=== PATIENT | female | born 1965 | race African-American/Black ===

== ENCOUNTER 2022-04-16 11:47 | Emergency (ER) | payer MEDICAID, SELFPAY ==
[2022-04-16 11:53] VITALS: BP 106/76; PULSE 71; RESP 16; TEMP 37.1; O2SAT 97; BMI 33.3
== END 2022-04-16 13:05 | disposition left against medical advice (07) ==
LOC: ED 13:08
DX: Z53.21 Procedure and treatment not carried out due to patient leaving prior to being seen by health care provider (principal)

== ENCOUNTER 2023-04-10 12:50 | Emergency (ER) | payer MEDICAID, SELFPAY ==
[2023-04-10 13:02] VITALS: BP 105/70; PULSE 69; RESP 18; TEMP 35.9; O2SAT 98
== END 2023-04-10 14:36 | disposition left against medical advice (07) ==
PROVIDERS: Emergency Provider Emergency Medicine Emergency Medical Services
DX: Z53.21 Procedure and treatment not carried out due to patient leaving prior to being seen by health care provider (principal)

== ENCOUNTER 2023-04-11 08:05 | Emergency (ER) | payer MEDICAID, SELFPAY ==
[2023-04-11] VITALS (34 sets, daily range): BP systolic 119–184; BP diastolic 68–86; PULSE 58–108; RESP 18; TEMP 35.4–36.1; O2SAT 92–100
--- NOTE | 2023-04-11 08:12 | ED.GENADULT ---
HPI - General Adult General Time Seen by Provider: 08:12 Date Seen: 04/11/23 Chief complaint: Chest Pain Stated complaint: thinks she's having a stroke Time Seen by Provider: 04/11/23 08:12 History of Present Illness HPI narrative: This is a 58-year-old female with a past history including previous PE On Xarelto, TMJ dysfunction, thoracic back pain, leg pain, headache, left hip replacement. She presents to the ER today with concern that she may be having a stroke because she is having numbness on her lip. She also has chest pain. She also recently had a rash affecting her face and was put on prednisone. She has a little bit unclear when that was but it sounds like the rash was about 6 or 7 days ago and she was seen in clinic and align and put on prednisone oral pills about 4 5 days ago last . She took 1 of those pills in bed Gadavist have symptoms. She had insomnia, trouble breathing, she felt anxious. She also developed some tightness in her chest. She was worried she might be having a side effect of the prednisone but did take an additional dose the following evening. Since then, labs or Monday she has been having some discomfort in her chest. It sounds like this has been fairly continuous. No clear pattern to it or relationship to exertion or rest. She has also been feeling some tightness and possibly short of breath. She has also noted some peripheral edema and new swelling in both of her ankles that is been present since or Monday and persistent over the weekend. If anything her chest tightness is little bit better today than prior but is still there. Beginning perhaps 2 days ago, possibly on Monday she began to have a funny tingly feeling in her left lateral shoulder/lateral upper arm. No weakness. No leg symptoms. No facial symptoms. since yesterday evening she also has been having tingling affecting both the right and left sides of her upper lip. No numbness of her lower lip or chin. No other numbness of her face. No trouble speaking. No other definite new symptoms. She also has some chronic pain in her hips and thighs which apparently has been there for several months. She did have a left hip joint replacement done several months ago. She has a previous visit to the ER from 2021 with a negative workup. Past medical history is pulled from that note Related Data Home Medications Medication Instructions Recorded Confirmed albuterol sulfate 90 mcg/actuation 1 - 2 puff inhalation Q4H PRN 04/11/23 04/11/23 aerosol inhaler dyspnea cholecalciferol (vitamin D3) 50 50 mcg PO DAILY 04/11/23 04/11/23 mcg (2,000 unit) capsule latanoprost 0.005 % eye drops 1 drp ophthalmic (eye) QPM 04/11/23 04/11/23 rivaroxaban 10 mg tablet (Xarelto) 10 mg PO DAILY 04/11/23 04/11/23 Allergies Allergy/AdvReac Type Severity Reaction Status Date / Time Sulfa (Sulfonamide AdvReac Intermediate Nausea Verified 04/16/22 12:01 Antibiotics) Exam Narrative: Exam Narrative: Constitutional: Appears well-developed and well-nourished. Alert. Conversant. Non toxic. HENT: Head: Atraumatic. Nose: Nose normal. Mouth/Throat: Oral mucosa is clear and moist. no trismus. Pharynx normal. Tonsils symmetric. No tonsillar enlargement, erythema, or exudate. Eyes: Conjunctivae normal. EOM normal. Pupils equal, round, and reactive to light. No scleral icterus. Neck: Normal range of motion. Neck supple. No tracheal deviation present. No JVD. Cardiovascular: Normal rate, regular rhythm. No gallop. No friction rub. No murmur heard. Symmetric radial and PT artery pulses Pulmonary/Chest: Effort normal. No stridor. No respiratory distress. No wheezes. No rales. No rhonchi . No tenderness. Abdominal: Soft. Bowel sounds normal. No distension. No mass. No tenderness. No rebound. No guarding. Musculoskeletal: RUE: Normal range of motion. No tenderness. No deformity LUE: Normal range of motion. No tenderness. No deformity RLE: Normal range of motion. No edema. No tenderness. No deformity LLE: Normal range of motion. No edema. No tenderness. No deformity Lymph: No cervical adenopathy. Mental status normal. Attention normal. Alert and oriented x3. GCS 15. Memory normal. Speech fluent. Cognition normal. Cranial Nerves intact II-XII except for complaint of subjective paresthesias on both sides of her upper lip. I did not formally test gag or visual acuity. EOMI. Palate elevates symmetrically and tongue protrudes in the midline. Strength: 5/5 trapezius on the right and left 5/5 deltoid on the right and left 5/5 biceps on the right and left 5/5 triceps on the right and left 5/5 scale manager on the right and left 5/5 thumb opposition on the right and left 5/5 finger abduction on the right and left 5/5 hip flexors (L3) on the right and left 5/5 quadriceps (L4) on the right and left 5/5 tibialis anterior on the right and left 5/5 EHL (L5) on the right and left 5/5 gastrocnemius (S1) on the right and left 5/5 hamstring on the right and left Sensation intact to light touch in both upper extremities (C4-T1) Sensation intact to light touch in Both lower extremities (L4-S1). Finger to nose and coordination normal. Gait normal. Skin: Skin is warm and dry. No rash noted. No pallor. Normal capillary refill. Psychiatric: Normal mood. Normal affect. Const: Vital Signs, click to edit/add: Vital Signs - 24 hr 04/11/23 08:17 04/11/23 08:37 04/11/23 08:55 Temperature 95.7 F L Pulse Rate 63 67 Pulse Rate [Right Pulse Oximeter] 76 Respiratory Rate 18 Blood Pressure 119/68 Blood Pressure [Ri ght Upper Arm] 126/86 Pulse Oximetry 94 96 [facility] 04/11/23 08:56 04/11/23 09:00 04/11/23 09:02 Temperature Pulse Rate 74 63 66 Pulse Rate [Right Pulse Oximeter] Respiratory Rate Blood Pressure 184/80 H Blood Pressure [Ri ght Upper Arm] Pulse Oximetry 98 98 97 [facility] 04/11/23 09:03 04/11/23 09:15 04/11/23 09:30 Temperature Pulse Rate 61 62 60 Pulse Rate [Right Pulse Oximeter] Respiratory Rate Blood Pressure Blood Pressure [Ri ght Upper Arm] Pulse Oximetry 99 97 96 Oxygen Delivery [facility] 04/11/23 09:33 04/11/23 09:45 04/11/23 10:00 Temperature Pulse Rate 65 58 L 108 H Pulse Rate [Right Pulse Oximeter] Respiratory Rate Blood Pressure 120/74 Blood Pressure [Ri ght Upper Arm] Pulse Oximetry 98 96 95 Oxygen Delivery [facility] 04/11/23 10:02 04/11/23 10:03 04/11/23 10:15 Temperature Pulse Rate 60 61 65 Pulse Rate [Right Pulse Oximeter] Respiratory Rate Blood Pressure 128/74 Blood Pressure [Ri ght Upper Arm] Pulse Oximetry 99 100 98 Oxygen Delivery [facility] 04/11/23 10:30 04/11/23 10:32 04/11/23 10:45 Temperature Pulse Rate 65 66 66 Pulse Rate [Right Pulse Oximeter] Respiratory Rate Blood Pressure 135/73 Blood Pressure [Ri ght Upper Arm] Pulse Oximetry 97 100 99 Oxygen Delivery [facility] 04/11/23 11:01 04/11/23 11:02 04/11/23 11:15 Temperature Pulse Rate 73 71 63 Pulse Rate [Right Pulse Oximeter] Respiratory Rate Blood Pressure 132/85 Blood Pressure [Ri ght Upper Arm] Pulse Oximetry 100 92 98 Oxygen Delivery [facility] 04/11/23 11:30 04/11/23 12:38 04/11/23 12:45 Temperature Pulse Rate 64 65 63 Pulse Rate [Right Pulse Oximeter] Respiratory Rate Blood Pressure Blood Pressure [Ri ght Upper Arm] Pulse Oximetry 94 93 99 Oxygen Delivery [facility] 04/11/23 13:00 04/11/23 13:15 04/11/23 13:30 Temperature Pulse Rate 63 65 67 Pulse Rate [Right Pulse Oximeter] Respiratory Rate Blood Pressure Blood Pressure [Ri ght Upper Arm] Pulse Oximetry 100 98 99 Oxygen Delivery [facility] 04/11/23 13:32 04/11/23 13:51 04/11/23 14:00 Temperature Pulse Rate 66 76 72 Pulse Rate [Right Pulse Oximeter] Respiratory Rate Blood Pressure Blood Pressure [Ri ght Upper Arm] Pulse Oximetry 100 95 100 Oxygen Delivery [facility] 04/11/23 14:15 04/11/23 14:30 04/11/23 14:45 Temperature Pulse Rate 71 69 65 Pulse Rate [Right Pulse Oximeter] Respiratory Rate Blood Pressure Blood Pressure [Ri ght Upper Arm] Pulse Oximetry 100 99 93 Oxygen Delivery Me [facility] 04/11/23 15:36 Temperature 96.9 F L Pulse Rate Pulse Rate [Right Pulse Oximeter] 70 Respiratory Rate Blood Pressure Blood Pressure [Ri ght Upper Arm] 120/81 Pulse Oximetry Oxygen Delivery Me thod Course Course Hospital Course: Patient was evaluated here in the ER. I ordered labs, EKG, workup for chest pain as well as CT scan of her head to workup for her neurologic symptoms. She was sent for noncontrast head CT. She declined Ativan. She declined IV start. IC received a phone call from the radiologist. They indicate that there was an abnormality within the right basal ganglia. They feel that it is most likely indicative of a calcification (but was not seen on her CT scan in 2016) and could be a small area of intracranial hemorrhage. Discuss with the stroke neurologist from [facility], Dr. Garza. She would recommend that we get MRI of the patient's brain with and walk without contrast to further characterize this lesion to see if it is a bleed or not and find out if is any underlying abnormalities such as a tumor. Discussed the recommendations with the patient. She was frustrated about the ambiguity, and just wanted to go home. We discussed potentially serious nature if this is truly an intracranial hemorrhage. Ultimately she decided to stay here in the ER for further workup. I ordered the MRI with and without contrast. She allowed us to try to start an IV. She is not known to be a very difficult IV stick. Nurses were unable to identify any site for IV start at the bedside. I looked with the bedside ultrasound. I was only able to identify 2 small fairly deep vessels adjacent to the arteries in her bilateral antecubital fossae. We called Anesthesia. They were ultimately able to get an IV. Patient was sent for MRI. She had anxiety and panic and was not able tolerate imaging while there. She was sent back to the ER. There was then some difficulty getting her back for MRI because of trouble with the schedule. They did not want to bump any outpatients for her MRI (even though this is a potential emergency). Ultimately we were able to get MRI to readjust her schedule to accommodate this patient. There was substantial delay in the time from her initial CT scan until we can get follow-up and imaging due to these multiple factors including patient reluctance, difficult IV access, anxiety with MRI needing medications, difficulty with MRI scheduling). Even after we ordered Ativan and got the MRI rescheduled for the patient she was still refusing. Patient understands our concern for intracranial hemorrhage in the potentially serious nature of this condition. Could lead to explaining bleeding which could lead to worsening neurologic deficits or even . She is still refusing MRI. She is just too claustrophobic and anxious. She is refusing offer of Ativan to facilitate imaging. I think she has medical decision-making capacity. Therefore will have to go ahead with repeat CT imaging to further evaluate. I ordered a repeat noncontrast head CT. Vital Signs Vital signs: Initial Vital Signs Temperature 95.7 F L 04/11/23 08:17 Temperature Source Temporal Artery Scan 04/11/23 08:17 Pulse Rate 76 04/11/23 08:17 Respiratory Rate 18 04/11/23 08:17 Blood Pressure 126/86 04/11/23 08:17 Blood Pressure Mean 99 04/11/23 08:17 Blood Pressure Position Sitting 04/11/23 08:17 Pulse Oximetry 94 04/11/23 08:17 Oxygen Delivery Method Room Air 04/11/23 08:17 Vital Signs Temperature 95.7 F L 04/11/23 08:17 Pulse Rate 76 04/11/23 08:17 Respiratory Rate 18 04/11/23 08:17 Blood Pressure 126/86 04/11/23 08:17 Pulse Oximetry 94 04/11/23 08:17 Oxygen Delivery Method Room Air 04/11/23 08:17 Temperature 96.9 F L 04/11/23 15:36 Pulse Rate 70 04/11/23 15:36 Respiratory Rate 18 04/11/23 08:17 Blood Pressure 120/81 04/11/23 15:36 Pulse Oximetry 93 04/11/23 14:45 Oxygen Delivery Method Room Air 04/11/23 08:17 Medical Decision Making MDM Narrative Medical decision making narrative: This is a 50-year-old female with a complex presentation to the ER. She complains of chest tightness ongoing since last week, continuous for several days, also neurologic symptoms including numbness of her left shoulder/upper arm and her bilateral upper lip. In terms of her chest pain. Differential was broad. No evidence of palpitations, syncope or other cardiac dysrhythmia. We considered possible ACS, however workup with EKG and troponin is negative. Given time since onset of symptoms, I do not think the patient needs to be admitted for further sets of enzymes. EKG shows no evidence for pericarditis. Clinical presentation not suggestive of myocarditis. Chest x-ray shows no evidence for pneumonia, pneumothorax, pulmonary edema, pleural effusion, rib fracture, cardiomegaly. Mediastinum is normal on the x-ray. The patient has no ripping or tearing pain through to the back and has symmetric pulses on exam, no other acute neuro findings so I doubt aortic dissection. Risk of radiation and contrast exposure would outweigh the benefit of CT angiogram. We considered PE for this patient. D-dimer is reassuring. She is already on anticoagulation with Xarelto and has been consistent with taking that. No wheezing or bronchospasm to suggest COPD/asthma. No signs of chest wall cellulitis, shingles, injury. Suspect that there may be some component of anxiety and probably stimulation from her prednisone that could be contributing. In terms of her neurologic symptoms, Concerns for possible stroke. With left arm symptoms ongoing for couple of days should be outside the window for stroke team activation or IV thrombolytics. We did send the patient for a noncontrast head CT. It had a surprising abnormality of a hyperdensity in the right basal ganglia (chronic calcification versus possible small acute intracranial/intraparenchymal hemorrhage). In discussion with the reading radiologist, he would says he would strongly favor calcification but cannot rule out bleed and recommends follow-up CT scan to assure stability. Discussed also with the Stroke Neurology team from [facility] and they recommended MRI with and without contrast. MRI with and without contrast was delayed substantially due to difficulty getting IV start. Ultimately MRI is not possible because of anxiety/claustrophobia. Patient is refusing offered benzodiazepines to help manage those symptoms. Therefore we went ahead with repeat noncontrast head CT. Repeat head CT is actually normal appearing this shows no evidence for any hyperdensity in the right basal ganglia to suggest intracranial hemorrhage. Unclear what was found on the 1st CT scan. Ultimately no signs of any residual or expanding intracranial hemorrhage, or any edema in the brain related to the hemorrhage. I still think MRI would be the ideal test for further evaluation, but as above, not obtainable here in the ER. patient is otherwise stable. She is eager for discharge to home. Recommend close outpatient follow-up with her primary care. Lab Data Labs: Lab Results 04/11/23 Range/Units 09:20 WBC 4.44 L (4.50-11.00) K/uL RBC 4.10 (4.00-5.20) m/uL Hgb 12.7 (12.0-16.0) gm/dL Hct 39.6 (33.0-51.0) % MCV 97 (80-100) fL MCH 31 (26-34) pg MCHC 32 (32-36) gm/dL RDW Coeff of Jose 12.2 (11.5-15.5) % Plt Count 232 (140-440) K/uL Neut % (Auto) 49.2 (42.0-72.0) % Lymph % (Auto) 44.1 H (20-44) % [place] % (Auto) 4.5 (0.0-11.0) % Eos % (Auto) 1.8 (0.0-7.0) % Baso % (Auto) 0.2 (0.0-3.0) % Neut # (Auto) 2.20 (1.7-7.0) K/uL Lymph # (Auto) 2.00 (0.90-2.90) K/uL [place] # (Auto) 0.20 (0.00-0.90) K/UL Eos # (Auto) 0.10 (0.00-0.50) K/uL Baso # (Auto) 0.00 (0.00-0.30) K/uL Abs Immat Gran (auto) 0.00 (0.00-0.30) K/uL Imm/Tot Granulo (auto) 0.2 % D-Dimer Quant (PE/DVT) 0.41 (0.00-0.50) ug/ml Sodium 139 (135-149) mmol/L Potassium 3.7 (3.6-5.1) mmol/L Chloride 106 (96-114) mmol/L Carbon Dioxide 23 (20-32) mmol/L BUN 11 (7-30) mg/dL Creatinine 0.7 (0.5-1.5) mg/dL Estimated GFR 100 ml/min Glucose 81 (60-115) mg/dL Calcium 9.0 (8.4-10.6) mg/dL Troponin I 0.01 (0.01-0.04) ng/mL Imaging Data CT scan - head: My impression: Discussed CT with the radiologist from [facility]. He indicates that there is a hyperdensity in the right basal ganglia. It was not present on previous imaging. He would strongly favor that this is probably a calcification but cannot completely exclude a possible tiny acute intraparenchymal hemorrhage. He recommends repeat CT scan in 6 hours to evaluate for stability. Radiologist's impression: IMPRESSION: Punctate hyperdensity within the posterior limb of the right internal capsule/thalamus. Finding most likely represent basal ganglial calcification. Tiny intraparenchymal hemorrhage felt unlikely this was not discretely visualized on exam from August 12, 2021. If there is further clinical concern short-term interval follow-up CT could be considered. ECG Data Attestation: I personally reviewed and interpreted this ECG as follows: Interpretation: Normal sinus rhythm rate 69 [place] 162 QRS axis normal. No pathologic Q-waves. ST segment/T wave: No ST segment elevation or depression. Nonspecific T-wave flattening in V2-V6, lead 3, lead AVF. QTc: 441 Discharge Plan Discharge Clinical Impression: Chest pain, Paresthesia of arm, Facial paresthesia Patient Disposition: Home, Self-Care Condition: Stable Instructions: Chest Pain (ED), Paresthesia (ED) Additional Instructions: As we discussed, please come back to the ER right away if you have worsening symptoms especially spreading numbness, weakness in your arm, headache, worsening chest pain, more trouble breathing, or if you have any concerns. Please follow-up with your regular doctor for recheck within the next 1-3 days. Activity Level: No Restrictions Prescriptions: No Action latanoprost 0.005 % drops 1 drp ophthalmic (eye) QPM albuterol sulfate 90 mcg/actuation HFA aerosol inhaler 1 - 2 puff INHALATION Q4H PRN (Reason: dyspnea) cholecalciferol (vitamin D3) 50 mcg (2,000 unit) capsule 50 mcg PO DAILY Xarelto 10 mg tablet 10 mg PO DAILY Follow Up/Referrals: Provider,Not a Local [Referring] - Stand Alone Forms: [employer] Info Instructions
--- NOTE | 2023-04-11 08:33 | CRLHL7_ITS ---
For Patients: As a result of the Century Cures Act, medical imaging exams and procedure reports are released immediately into your electronic medical record. You may view this report before your referring provider. If you have questions, please contact your health care provider. INDICATION: parathesia TECHNIQUE: Head CT without contrast. COMPARISON: CT head August 12, 2021. FINDINGS: CSF spaces: Within normal limits for age. Brain parenchyma and extra-axial spaces: Punctate hyperdensity within the posterior limb of the right internal capsule/thalamus there is a punctate hyperdensity that would represent a basal ganglia calcification. Tiny intraparenchymal hemorrhage felt less likely. There are mild nonspecific low attenuation white matter changes consistent with chronic microvascular disease. No mass effect or midline shift. Skull base and calvarium: The visualized paranasal sinuses and mastoid air cells demonstrate no acute or significant findings. The visualized orbits are grossly unremarkable. No skull fractures. IMPRESSION: Punctate hyperdensity within the posterior limb of the right internal capsule/thalamus. Finding most likely represent basal ganglial calcification. Tiny intraparenchymal hemorrhage felt unlikely this was not discretely visualized on exam from August 12, 2021. If there is further clinical concern short-term interval follow-up CT could be considered. Otherwise, no acute intracranial abnormality on this unenhanced CT head. Findings discussed with Dr. Erwin Ferreira at 9:20 a.m. Please note that all CT scans at this facility use dose modulation, iterative reconstruction, and/or weight-based dosing when appropriate to reduce radiation dose to as low as reasonably achievable. Dictated by Arsenio Snyder MD @ 04/11/2023 9:21:46 AM (Electronically Signed)
--- NOTE | 2023-04-11 08:58 | ED.NURSE ---
Patient does not want IV. Explained purpose and potential need for IV medications and she states she will do blood draw now and IV later if needed. Also refuses medication at this time as she feels medication is to blame for her current symptoms.
[2023-04-11 09:50] LABS: Basophils Percent Auto 0.2 % (0.0-3.0); Eosinophils Percent Auto 1.8 % (0.0-7.0); Hematocrit 39.6 % (33.0-51.0); Hemoglobin* 12.7 gm/dL (12.0-16.0); Immature Granulocytes Pct Auto 0.2 %; Lymphocytes Percent Auto 44.1 % (20-44); Mean Corpuscular HGB Conc 32 gm/dL (32-36); Mean Corpuscular Hemoglobin 31 pg (26-34); Mean Corpuscular Volume 97 fL (80-100); Monocytes Percent Auto 4.5 % (0.0-11.0); Neutrophils Percent Auto 49.2 % (42.0-72.0); Platelet Count* 232 K/uL (140-440); RDW Coefficient of Variation % 12.2 % (11.5-15.5); White Blood Count* 4.44 K/uL (4.50-11.00)
[2023-04-11 10:02] LABS: Chloride* 106 mmol/L (96-114); Potassium* 3.7 mmol/L (3.6-5.1); Sodium* 139 mmol/L (135-149)
[2023-04-11 10:03] LABS: D Dimer Quantitative* 0.41 ug/ml (0.00-0.50)
[2023-04-11 10:05] LABS: Blood Urea Nitrogen* 11 mg/dL (7-30); Carbon Dioxide* 23 mmol/L (20-32); Creatinine* 0.7 mg/dL (0.5-1.5); Estimated Glomerular Filt Rate 100 ml/min; Glucose* 81 mg/dL (60-115)
[2023-04-11 10:09] LABS: Slide Review Reflex No
[2023-04-11 10:17] LABS: Troponin I* 0.01 ng/mL (0.01-0.04)
--- NOTE | 2023-04-11 11:58 | ED.NURSE ---
Patient accepts recommended plan of care including IV for contrast MRI. No veins are palpable for possible site. MD attempted to find vein on ultrasound without viable site. Anesthesia paged to help with access.
--- NOTE | 2023-04-11 12:45 | ED.NURSE ---
pt was brought to MRI, when electronic lab technician went to put pt into machine pt refused to complete scan, electronic lab technician brought pt back to the ED MRI not completed
--- NOTE | 2023-04-11 13:33 | CRLHL7_ITS ---
For Patients: As a result of the Century Cures Act, medical imaging exams and procedure reports are released immediately into your electronic medical record. You may view this report before your referring provider. If you have questions, please contact your health care provider. INDICATION: Right sided subcortical hemorrhage question on a study from earlier April 11, 2023 COMPARISON: April 11, 2023 at 8:55 a.m. the current study is from April 11, 2023 01:55 p.m. TECHNIQUE: CT examination of the head was performed as axial sections without intravenous contrast. Images were obtained from the vertex of the skull through the skull base. Please note that all CT scans at this facility use dose modulation, iterative reconstruction, and/or weight-based dosing when appropriate to reduce radiation dose to as low as reasonably achievable. FINDINGS: The brain shows no sign of mass lesion, mass effect, hemorrhage, or edema. The ventricles and sulci are normal in appearance for the patient`s age. The focal hyperdensity noted in the posterior limb of the right internal capsule near the superior and lateral aspect of the right thalamus is not visible on the current study. The visualized portions of the orbits are normal in appearance. The osseous structures are normal in their appearance with no sign of abnormality in the skull base or calvarium. IMPRESSION: Normal unenhanced head CT. The focal hyperdensity noted in the posterior limb of the right internal capsule near the superior and lateral aspect of the right thalamus is not visible on the current study. There is no evidence of hemorrhage on the current exam. Please note that all CT scans at this facility use dose modulation, iterative reconstruction, and/or weight-based dosing when appropriate to reduce radiation dose to as low as reasonably achievable. Dictated by Artemio Martinez MD @ 04/11/2023 2:29:28 PM (Electronically Signed)
--- NOTE | 2023-04-11 13:48 | ED.NURSE ---
Patient counseled on importance of completed MRI with contrast for best imaging. Her fears were heard and acknowledged, Ativan offered as medication. Patient still unwilling to take anti-anxiolytic and unable to tolerate MRI. MD updated and order changed to CT.
== END 2023-04-11 15:37 | disposition home or self-care (01) ==
PROVIDERS: Emergency Provider Emergency Medicine; PCP Student in an Organized Health Care Education/Training Program
DX: R07.9 Chest pain, unspecified (principal); R20.2 Paresthesia of skin
CPT/HCPCS: 36415; 70450; 80048; 84484; 85025; 85379; 93005; 99284

== ENCOUNTER 2023-07-14 19:31 | Emergency (ER) | payer MEDICAID, SELFPAY ==
[2023-07-14 19:36] VITALS: BP 119/79; PULSE 84; RESP 20; TEMP 36.4; O2SAT 96; BMI 35.4
--- NOTE | 2023-07-14 19:42 | ED_ITS ---
HPI - Wound/Laceration General Time Seen by Provider: 19:42 Date Seen: 07/14/23 Chief Complaint: Laceration/Wound Stated Complaint: hand puncture Time Seen by Provider: 07/14/23 19:41 Source: patient and RN notes reviewed Mode of arrival: ambulatory Limitations: no limitations History of Present Illness HPI narrative: Patient is a 58-year-old female coming in with a laceration just along the base of her left thumb. She sustained this as she was attempting to open her juice bottle, could not get the cap off and took a knife to it, accidentally stabbed herself along her hand. She was holding pressure as she is on Xarelto for history of pulmonary embolus. It did bleed a lot. She states the nail portion along the end of her finger was feeling numb. The knife went into the interdigital web space alongside the base of the thumb metacarpophalangeal joint. There is no active bleeding at this time, she states she held heavy pressure on it. There is nothing on the lateral aspect or the thenar eminence. Reviewed with her that there are nerve roots on both sides of the thumb, does not seem feasible that she would have full terminal numbness of the thumb. Will explore the wound and make sure it is not deep but at this time it is not bleeding, does not seem to be in an area that would be juxtaposed to where the nerve root lies, wound is more along the soft tissue in interdigital web space. Patient believes her tetanus is up-to-date. This injury happened just prior to arrival. Place: home Patient tetanus UTD: Yes Context: accidental Related Data Home Medications Medication Instructions Recorded Confirmed albuterol sulfate 90 mcg/actuation 1 - 2 puff inhalation Q4H PRN 04/11/23 07/14/23 aerosol inhaler dyspnea cholecalciferol (vitamin D3) 50 50 mcg PO DAILY 04/11/23 07/14/23 mcg (2,000 unit) capsule latanoprost 0.005 % eye drops 1 drp ophthalmic (eye) QPM 04/11/23 07/14/23 rivaroxaban 10 mg tablet (Xarelto) 10 mg PO DAILY 04/11/23 07/14/23 Allergies Allergy/AdvReac Type Severity Reaction Status Date / Time Sulfa (Sulfonamide AdvReac Intermediate Nausea Verified 07/14/23 19:36 Antibiotics) Review of Systems Narrative: As per HPI. Exam Const: Vital Signs, click to edit/add: Vital Signs - 24 hr 07/14/23 19:36 Temperature 97.6 F Pulse Rate [Pulse Oximeter] 84 Respiratory Rate 20 Blood Pressure [Ri ght Forearm] 119/79 Pulse Oximetry 96 Oxygen Delivery Me thod Room Air Patient is a 58-year-old female that is alert, interactive, no apparent distress. She has a 0.75 cm wound that is linear in the interdigital web space between the 1st and 2nd finger on the left hand. It is closer to the distal 1st metacarpal, metacarpophalangeal joint of the thumb in proximity verses the 2nd digit. There is no active bleeding at this time. Wound was anesthetized with about 2.5 mL of lidocaine with epinephrine locally. Wound was subsequently explored, it is just into the subcutaneous tissue. Patient could feel the pad of her finger, felt like the nail did not have as much sensation. She could feel along the lateral aspect of the thumb, there is no wound along the lateral aspect of the thumb, nothing on the palmar surface. Wound was irrigated with saline. Repair was done following standard sterile fashion, simple suture tray was used. Three simple interrupted sutures using 3-0 Ethilon were used to reapproximate the wound, hemostasis observed, patient tolerated the procedure well. Documenting provider has reviewed patient's vital signs: yes Course Vital Signs Vital signs: Initial Vital Signs Temperature 97.6 F 07/14/23 19:36 Temperature Source Temporal Artery Scan 07/14/23 19:36 Pulse Rate 84 07/14/23 19:36 Pulse Rhythm Regular 07/14/23 19:36 Respiratory Rate 20 07/14/23 19:36 Blood Pressure 119/79 07/14/23 19:36 Blood Pressure Mean 92 07/14/23 19:36 Blood Pressure Position Sitting 07/14/23 19:36 Pulse Oximetry 96 07/14/23 19:36 Oxygen Delivery Method Room Air 07/14/23 19:36 Vital Signs Temperature 97.6 F 07/14/23 19:36 Pulse Rate 84 07/14/23 19:36 Respiratory Rate 20 07/14/23 19:36 Blood Pressure 119/79 07/14/23 19:36 Pulse Oximetry 96 07/14/23 19:36 Oxygen Delivery Method Room Air 07/14/23 19:36 Temperature 97.6 F 07/14/23 19:36 Pulse Rate 84 07/14/23 19:36 Respiratory Rate 20 07/14/23 19:36 Blood Pressure 119/79 07/14/23 19:36 Pulse Oximetry 96 07/14/23 19:36 Oxygen Delivery Method Room Air 07/14/23 19:36 Discharge Plan Discharge Clinical Impression: Laceration of hand Patient Disposition: Home, Self-Care Condition: Stable Instructions: Care For Your Stitches (ED), Laceration (ED) Additional Instructions: May shower and wash hands but should otherwise keep this wound clean and dry until stitches are out. Use bandages and bacitracin or triple antibiotic ointment to wound until wound is healed. Need to schedule a clinic follow-up in about 7-10 days to assess the wound for suture removal. If there are concerns for infection, please seek re-evaluation. You may have some slight discomfort in this area as well as bruising, can use Tylenol per bottle directions for discomfort. Ice to the area can help decrease bruising swelling and discomfort. Activity Level: Activity as Tolerated Prescriptions: No Action latanoprost 0.005 % drops 1 drp ophthalmic (eye) QPM albuterol sulfate 90 mcg/actuation HFA aerosol inhaler 1 - 2 puff INHALATION Q4H PRN (Reason: dyspnea) cholecalciferol (vitamin D3) 50 mcg (2,000 unit) capsule 50 mcg PO DAILY Xarelto 10 mg tablet 10 mg PO DAILY Follow Up/Referrals: CHAD ROSE DO [Primary Care Provider] - Stand Alone Forms: [employer] Info Instructions
== END 2023-07-14 20:41 | disposition home or self-care (01) ==
LOC: ED 20:19
PROVIDERS: Emergency Provider Family Medicine; PCP Student in an Organized Health Care Education/Training Program
DX: S61.012A Laceration without foreign body of left thumb without damage to nail, initial encounter (principal); W26.0XXA Contact with knife, initial encounter
CPT/HCPCS: 12001; 99283

== ENCOUNTER 2023-08-14 07:43 | Emergency (ER) | payer OTHER, SELFPAY ==
[2023-08-14] VITALS (17 sets, daily range): BP systolic 108–124; BP diastolic 74–90; PULSE 57–71; RESP 16; TEMP 36.1–36.8; O2SAT 94–99; BMI 36.0
--- NOTE | 2023-08-14 09:07 | CRLHL7_ITS ---
For Patients: As a result of the Cures Act, medical imaging exams and procedure reports are released immediately into your electronic medical record. You may view this report before your referring provider. If you have questions, please contact your health care provider. Indication: Left shoulder pain. Technique: Left shoulder 3 views. Comparison: None. Findings/impression: No acute fracture or malalignment. No significant osteoarthritic degenerative changes. No suspicious osseous lesions. The soft tissues are within normal limits. The visualized lungs are clear. Dictated by Isidoro Baxter MD @ 08/14/2023 10:35:10 AM (Electronically Signed)
--- NOTE | 2023-08-14 09:17 | ED_ITS ---
HPI - General Adult General Date Seen: 08/14/23 Chief complaint: Extremity Pain/Injury, Upper Stated complaint: L side sore, lips tingling earlier Time Seen by Provider: 08/14/23 08:20 Source: patient Mode of arrival: ambulatory Limitations: no limitations History of Present Illness HPI narrative: Patient presents for evaluation of left arm pain and lip tingling. She was seen here in March and had a fairly lengthy evaluation at that time for lip tingling and chest discomfort at that time. She had an initial head CT in March which showed an abnormality, they attempted to do an MRI which she did tolerate and then she had a repeat head CT which was normal. She says that she did ultimately get an outpatient MRI, this apparently was done in May, and she tells me that this was normal. She says she has had 2 or 3 episodes of this lip tingling associated with discomfort in her left upper arm. She says that a few weeks ago she went to the gym and did some weight lifting and since then she has had a focal tenderness and pain when she moves her left shoulder. She says that she has arthritis, she feels it is ?moving rapidly through her body and she is worried that she has arthritis in her shoulder now. She says yesterday she was sitting her now recliner watching a movie and she went to sit up and had pain in her arm and difficulty moving it, seemingly related to the fact that it was painful. She says her upper lip was tingling at that time, it is the central lip, not lateralized. She became worried that she might be having a stroke, she says she got up, took some Tylenol and within 20 minutes was feeling little better so she went to bed. She has difficulty sleeping, she says she can not sleep flat and only gets a couple of hours of sleep at a time even with her CPAP on. She woke up at 3:00 a.m. and says the tingling was back. She says her left arm feels funny, not numb but just funny. She isn't having any trouble moving it. She has a little bit of a headache, mild. She does not have chest pain today. No other neurologic complaints. As an aside, she also says that her left thumb has been really stiff ever since having a small laceration repaired at the end of June, and asked that I evaluate that as well. Related Data Home Medications Medication Instructions Recorded Confirmed albuterol sulfate 90 mcg/actuation 1 - 2 puff inhalation Q4H PRN 04/11/23 07/14/23 aerosol inhaler dyspnea cholecalciferol (vitamin D3) 50 50 mcg PO DAILY 04/11/23 08/14/23 mcg (2,000 unit) capsule latanoprost 0.005 % eye drops 1 drp ophthalmic (eye) QPM 04/11/23 08/14/23 rivaroxaban 10 mg tablet (Xarelto) 10 mg PO DAILY 04/11/23 08/14/23 nicotine 10 mg/mL nasal spray 1 spray intranasal 08/14/23 (Nicotrol NS) pravastatin 10 mg tablet 10 mg PO DAILY 08/14/23 08/14/23 rosuvastatin 10 mg tablet 10 mg PO QPM 08/14/23 08/14/23 Allergies Allergy/AdvReac Type Severity Reaction Status Date / Time Sulfa (Sulfonamide AdvReac Intermediate Nausea Verified 08/14/23 07:59 Antibiotics) Review of Systems Status of ROS: Reports: 10 or more systems reviewed and unremarkable except as noted in History and below [facility] Social History Smoking Status: Current every day smoker What tobacco products do you use: cigarettes Smoking packs per day: 0.10 Smoking cigarettes per day: 2.0 Do you use any of these nicotine containing products: None Second hand tobacco smoke exposure: No How often do you have a drink containing alcohol: never AUDIT-C Alcohol total score: 0 Non-prescribed substance use: denies use service: No Exam Narrative: Exam Narrative: Vital signs as noted above. In general, an alert, well-appearing woman. Head: Normocephalic, atraumatic. Eyes: Pupils are equal reactive. Extraocular movements are full. Conjunctivae are normal. ENT: Mucous membranes are moist. Throat is normal. Lips are normal in appearance, no swelling or erythema. Neck: Supple without lymphadenopathy. Heart: Regular rate and rhythm. No murmur or rub. Lungs: Clear bilaterally. No increased work of breathing, crackles or wheezes. Abdomen: Soft and nontender. No organomegaly. Extremities: Well perfused. No edema. No calf tenderness. Pulses intact. Neurologic: Patient is alert and oriented to person and place. Speech is fluent. Face is symmetric. Moves all extremities equally. Strength is 5 of 5 in upper and lower extremities. Sensation is intact to light touch. Affect: Normal. Skin: Warm and dry. Well perfused. Const: Vital Signs, click to edit/add: Vital Signs - 24 hr 08/14/23 07:57 08/14/23 07:58 08/14/23 08:00 Temperature 97.0 F L 97.0 F L Pulse Rate 69 68 Pulse Rate [Pulse Oximeter] 63 Respiratory Rate 16 16 Blood Pressure 124/79 Blood Pressure [Ri ght Upper Arm] 110/77 Pulse Oximetry 98 99 95 Oxygen Delivery Me thod Room Air 08/14/23 08:00 08/14/23 08:01 08/14/23 08:02 Temperature Pulse Rate 67 67 62 Pulse Rate [Pulse Oximeter] Respiratory Rate 16 Blood Pressure 110/77 Blood Pressure [Ri ght Upper Arm] Pulse Oximetry 97 96 94 Oxygen Delivery Me thod 08/14/23 08:15 08/14/23 08:30 08/14/23 08:31 Temperature Pulse Rate 64 70 71 Pulse Rate [Pulse Oximeter] Respiratory Rate 16 Blood Pressure 115/90 H Blood Pressure [Ri ght Upper Arm] Pulse Oximetry 94 96 97 Oxygen Delivery Me thod 08/14/23 08:45 08/14/23 09:00 08/14/23 09:01 Temperature Pulse Rate 62 60 61 Pulse Rate [Pulse Oximeter] Respiratory Rate 16 Blood Pressure 108/76 Blood Pressure [Ri ght Upper Arm] Pulse Oximetry 98 97 96 Oxygen Delivery Me thod 08/14/23 09:15 Temperature Pulse Rate 59 L Pulse Rate [Pulse Oximeter] Respiratory Rate Blood Pressure Blood Pressure [Ri ght Upper Arm] Pulse Oximetry 96 Oxygen Delivery Me thod Course Course ED Course: Following my initial evaluation the patient at her request I ordered an x-ray of her left shoulder as she is quite concerned about the possibility of arthritis. I spoke with Dr. York, who was on-call for Neurology at [facility]. She was able to review the patient's MRI from May and confirm that it did not show any abnormalities. She did say that ideally we would do another MRI today to make sure there was no evidence of ischemia or other abnormalities. Discussed with her that patient did not tolerate that last time, and she said that we could do a limited MRI just to rule out evidence of TIA or stroke. Barring that, she said a noncontrast head CT would be acceptable as well. She did not feel that CTA was necessary as this was unlikely to be large vessel. I discussed all this with the patient. She actually declines any imaging of her brain, she just wants the x-ray of her shoulder. 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 I told her that we could do a limited MRI that would only take [address] scan which would only take a couple of minutes in terms of time for imaging, and that this would help us rule out more serious causes such as stroke. However, she says that she just wants her shoulder x-rayed and she will follow up if she is having more episodes. She certainly is well within her right to make this decision, she understands that more serious diagnoses have not been evaluated for ruled out and is comfortable with that. With regard to her shoulder pain, this does seem to be likely soft tissue related to me, either some tendinopathy or muscle injury. Her x-ray is negative, I do not see significant arthritis, formal read is pending. Will discharge home, she understands to return if she is acutely worse and to follow-up with her primary doctor if not improving. I recommended that she try Tylenol 1000 mg 3 times daily along with ice and see if shoulder improved with conservative measures. Vital Signs Vital signs: Initial Vital Signs Temperature 97.0 F L 08/14/23 07:57 Pulse Rate 69 08/14/23 07:57 Respiratory Rate 16 08/14/23 07:57 Blood Pressure 124/79 08/14/23 07:57 Blood Pressure Mean 94 08/14/23 07:57 Pulse Oximetry 98 08/14/23 07:57 Vital Signs Temperature 97.0 F L 08/14/23 07:57 Pulse Rate 69 08/14/23 07:57 Respiratory Rate 16 08/14/23 07:57 Blood Pressure 124/79 08/14/23 07:57 Pulse Oximetry 98 08/14/23 07:57 Temperature 97.0 F L 08/14/23 08:00 Pulse Rate 59 L 08/14/23 09:15 Respiratory Rate 16 08/14/23 09:01 Blood Pressure 108/76 08/14/23 09:01 Pulse Oximetry 96 08/14/23 09:15 Oxygen Delivery Method Room Air 08/14/23 08:00 Discharge Plan Discharge Clinical Impression: Left upper arm pain Patient Disposition: Home, Self-Care Condition: Stable Instructions: Arm Pain (ED) Additional Instructions: Try Tylenol 1000 mg 3 times daily along with ice on your left shoulder for the next few days up to a week or so. If not improving with conservative treatment, would recommend primary care follow-up, physical therapy may be helpful as well. With regard to your lip tingling and other symptoms, we did not evaluate those today as you have opted out of imaging of your brain. If you have recurrent episodes or develop new symptoms you should be seen again either in the ER by your clinic doctor. Prescriptions: No Action latanoprost 0.005 % drops 1 drp ophthalmic (eye) QPM albuterol sulfate 90 mcg/actuation HFA aerosol inhaler 1 - 2 puff INHALATION Q4H PRN (Reason: dyspnea) cholecalciferol (vitamin D3) 50 mcg (2,000 unit) capsule 50 mcg PO DAILY Xarelto 10 mg tablet 10 mg PO DAILY pravastatin 10 mg tablet 10 mg PO DAILY Nicotrol NS 10 mg/mL spray,non-aerosol 1 spray INTRANASAL rosuvastatin 10 mg tablet 10 mg PO QPM Follow Up/Referrals: CHAD ROSE DO [Primary Care Provider] - Stand Alone Forms: [employer] Info Instructions
== END 2023-08-14 10:09 | disposition home or self-care (01) ==
PROVIDERS: Emergency Provider Emergency Medicine; PCP Student in an Organized Health Care Education/Training Program
DX: M79.602 Pain in left arm (principal)
CPT/HCPCS: 73030; 95992; 99283; 99284

== ENCOUNTER 2024-05-20 14:11 | Outpatient (CLI) | payer OTHER, SELFPAY ==
--- OUTSIDE RECORDS SUMMARY | 2024-05-26 00:18 | XMS_ITS | Clinical Summary ---
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 cells 03/06/2024 8:31 AM CDT [facility] GRAM STAIN 1+ RBCs 03/06/2024 8:31 AM CDT [facility] GRAM STAIN No organisms seen 03/06/2024 8:31 AM CDT [facility] GRAM STAIN Gram stain performed by [place] 03/06/2024 8:31 AM CDT [facility] Body Fluid SYNOVIAL FLUID SPECIMEN / Unknown Non-Blood / Unknown 03/01/2024 3:22 PM CDT 03/01/2024 3:36 PM CDT Sagrario NUNEZ MICROBIOLOGY [facility] [address] [address], [address] [address] * BODY FLUID CELL COUNT/DIF (03/01/2024 3:22 PM CDT) BODY FLUID SOURCE Synovial Fluid 03/01/2024 4:25 PM CDT [facility] BODY FLUID COLOR Grossly Bloody 03/01/2024 4:25 PM CDT [facility] BODY FLUID CLARITY Cloudy 03/01/2024 4:25 PM CDT [facility] TOTAL NUCLEATED CELLS, BF 2,351 /cu mm 03/01/2024 4:25 PM CDT [facility] RED BLOOD COUNT, BODY FLUID 34,000 /cu mm 03/01/2024 4:25 PM CDT [facility] % NEUTROPHILS, BODY FLUID 69 % 03/01/2024 4:25 PM CDT [facility] % LYMPHOCYTES, BODY FLUID 11 % 03/01/2024 4:25 PM CDT [facility] % MONO/MACRO, BODY FLUID 20 % 03/01/2024 4:25 PM CDT [facility] Body Fluid SYNOVIAL FLUID SPECIMEN / Unknown Non-Blood / Unknown 03/01/2024 3:22 PM CDT 03/01/2024 3:36 PM CDT Narrative [facility] - 03/01/2024 4:25 PM CDT TO ORDER BODY FLUID CULTURES, USE; [id number] BODY FLUID CULTURE, STAIN Sagrario NUNEZ BODY FLUID Performing Organization Address [facility] Co de Phone Number [address] [address] * (ABNORMAL) SEDIMENTATION RATE (03/01/2024 1:17 PM CDT) SEDIMENTATION RATE 60(H) <30 mm/hr 2023 1:36 PM CDT [facility] Blood BLOOD SPECIMEN / Unknown Butterfly / Unknown 03/01/2024 1:17 PM CDT 03/01/2024 1:24 PM CDT Braydon Villanueva MD HEMATOLOGY Performing Organization Address City/[facility]/ZIP Co de Phone Number [address] [address] * BLOOD CULTURE (03/01/2024 1:17 PM CDT) Only the most recent of2 resultswithin the time period is included. CULTURE No Growth. 03/06/2024 2:33 PM CDT [facility] Blood BLOOD SPECIMEN / Unknown Butterfly / Unknown 03/01/2024 1:17 PM CDT 03/01/2024 1:24 PM CDT Narrative [facility] - 03/06/2024 2:33 PM CDT Low volume blood culture received; possible false negative culture. Braydon Villanueva MD MICROBIOLOGY [facility] [address] [place] [address] * (ABNORMAL) CBC W PLT NO DIFF (03/01/2024 1:17 PM CDT) WHITE BLOOD COUNT 6.3 4.5 - 11.0 thou/cu mm 03/01/2024 1:29 PM CDT [facility] RED BLOOD COUNT 3.30(L) 4.00 - 5.20 mil/cu mm 03/01/2024 1:29 PM CDT [facility] HEMOGLOBIN 10.7(L) 12.0 - 16.0 g/dL 03/01/2024 1:29 PM CDT [facility] HEMATOCRIT 32.9(L) 33.0 - 51.0 % 03/01/2024 1:29 PM CDT [facility] MCV 100 80 - 100 fL 03/01/2024 1:29 PM CDT [facility] MCH 32.4 26.0 - 34.0 pg 03/01/2024 1:29 PM CDT [facility] MCHC 32.5 32.0 - 36.0 g/dL 03/01/2024 1:29 PM CDT [facility] RDW 12.6 11.5 - 15.5 % 03/01/2024 1:29 PM CDT [facility] PLATELET COUNT 190 140 - 440 thou/cu mm 03/01/2024 1:29 PM CDT [facility] MPV 9.4 6.5 - 11.0 fL 03/01/2024 1:29 PM CDT [facility] NRBC 0.0 % 03/01/2024 1:29 PM CDT [facility] ABS NRBC 0.0 thou /cu mm 03/01/2024 1:29 PM CDT [facility] Blood BLOOD SPECIMEN / Unknown Butterfly / Unknown 03/01/2024 1:17 PM CDT 03/01/2024 1:24 PM CDT Braydon Villanueva MD HEMATOLOGY Performing Organization Address City/[facility]/ZIP Co de Phone Number [address] [address] * LACTATE VENOUS (03/01/2024 12:30 PM CDT) LACTATE,VENOUS 1.3 0.5 - 2.0 mmol/L 03/01/2024 1:16 PM CDT [facility] Blood BLOOD SPECIMEN / Unknown IV Start / Unknown 03/01/2024 12:30 PM CDT 03/01/2024 12:54 PM CDT Braydon Villanueva MD CHEMISTRY Performing Organization Address [facility] Co de Phone Number [address] [address] * PROCALCITONIN (03/01/2024 12:30 PM CDT) PROCALCITONIN 0.05 ng/ml 03/01/2024 1:29 PM CDT [facility] Blood BLOOD SPECIMEN / Unknown IV Start / Unknown 03/01/2024 12:30 PM CDT 03/01/2024 12:54 PM CDT Narrative [facility] - 03/01/2024 1:29 PM CDT Procalcitonin for [...] Villanueva MD SEND OUTS Performing Organization Address City/State/[facility] Co de Phone Number [facility] [address] [place] [address] * (ABNORMAL) PROTIME-INR (03/01/2024 12:30 PM CDT) INR 1.5(H) <1.3 03/01/2024 1:08 PM CDT [facility] PROTIME 16.4(H) 10.3 - 12.3 sec 03/01/2024 1:08 PM CDT [facility] Blood BLOOD SPECIMEN / Unknown IV Start / Unknown 03/01/2024 12:30 PM CDT 03/01/2024 12:54 PM CDT Narrative [facility] - 03/01/2024 1:08 PM CDT ?Therapeutic [...] if the patient is on UFH. Braydon Villanueva MD HEMATOLOGY Performing Organization Address [facility] de Phone Number [address] [address] * LIPASE (03/01/2024 12:30 PM CDT) [facility] LIPASE 21.2 13.0 - 60.0 IU/L 03/01/2024 1:20 PM CDT [facility] Blood BLOOD SPECIMEN / Unknown IV Start / Unknown 03/01/2024 12:30 PM CDT 03/01/2024 12:54 PM CDT Braydon Villanueva MD CHEMISTRY Performing Organization Address [facility] de Phone Number [address] [address] * EKG 12 LEAD UNIT PERFORMED (03/01/2024 12:13 PM CDT) [facility] Interpretation Normal sinus rhythm Normal ECG BEYOND NOW Ventricular Rate 78 BPM BEYOND NOW Atrial Rate 78 BPM BEYOND NOW P-R Interval 160 ms BEYOND NOW QRS Duration 88 ms BEYOND NOW QT 376 ms BEYOND NOW QTc 428 ms BEYOND NOW P Orange 36 degrees BEYOND NOW R Orange -11 degrees BEYOND NOW T Orange 31 degrees BEYOND NOW 03/01/2024 12:1 3 PM CDT 03/04/2024 4:25 PM CDT Braydon Villanueva MD EKG ORD Performing Organization Address [facility] de Phone Number BEYOND NOW [place], [place] * AEROBIC BACTERIAL CULTURE, STAIN (03/01/2024 12:10 PM CDT) CULTURE No Growth. 03/04/2024 10:10 AM CDT [facility] GRAM STAIN 2+ PMNs 03/04/2024 10:10 AM CDT [facility] GRAM STAIN 1+ Epithelial cells 03/04/2024 10:10 AM CDT [facility] GRAM STAIN 1+ RBCs 03/04/2024 10:10 AM CDT [facility] GRAM STAIN No organisms seen 03/04/2024 10:10 AM CDT [facility] GRAM STAIN Gram stain performed by [place] 03/04/2024 10:10 AM CDT [facility] Other (Other) Non-Blood / Unknown 03/01/2024 12:10 PM CDT 03/01/2024 12:54 PM CDT Braydon Villanueva MD MICROBIOLOGY Performing Organization Address City/State/[facility] Co de Phone Number [facility] [address] [place] [address], [place] [address] * SCAN-CARDIAC STRIP (03/01/2024 12:00 AM CDT) Narrative 03/01/2024 12:00 AM CDT Ordered by an unspecified provider. Other Clinical Staff OTHER * (ABNORMAL) LIPID PANEL W REFLEX MEASURED LDL (08/04/2023 1:40 PM PERSONALIZED LIVING MANAGER) CHOLESTEROL,TOTAL 256(H) 100 - 199 mg/dL 08/04/2023 9:40 PM PERSONALIZED LIVING MANAGER [facility] Comment: Cholesterol, Total Reference Ranges Desirable <200 mg/dL Borderline 200-239 mg/dL High >=240 mg/dL TRIGLYCERIDES 104 <150 mg/dL 08/04/2023 9:40 PM PERSONALIZED LIVING MANAGER [facility] HDL CHOLESTEROL 53 >40 mg/dL 9:40 PM PERSONALIZED LIVING MANAGER [facility] NON-HDL CHOLESTEROL 203(H) <145 mg/dl 08/04/2023 9:40 PM PERSONALIZED LIVING MANAGER [facility] CHOL/HDL RATIO 4.83(H) <4.50 08/04/2023 9:40 PM PERSONALIZED LIVING MANAGER [facility] LDL CHOLESTEROL 182(H) <=130 mg/dL 08/04/2023 9:40 PM PERSONALIZED LIVING MANAGER [facility] VLDL CHOLESTEROL 21 <=30 mg/dL 08/04/2023 9:40 PM PERSONALIZED LIVING MANAGER [facility] PROVIDER ORDERED STATUS RANDOM 08/04/2023 9:40 PM PERSONALIZED LIVING MANAGER [facility] Blood BLOOD SPECIMEN / Unknown Venipuncture / Unknown 08/04/2023 1:40 PM PERSONALIZED LIVING MANAGER 08/04/2023 1:42 PM PERSONALIZED LIVING MANAGER Kathy Lester DO CHEMISTRY [facility] [address] [place] [address], * XR MAMMO LEVI BILAT SCREEN (06/06/2023 [...] For Patients: As a result of the 21st Century Cures Act, medical imaging exams and procedure reports are released immediately into your electronic medical record. You may view this report before your referring provider. If you have questions, please contact your health care provider. XR MAMMO LEVI BILAT SCREEN [[id number]] CLINICAL HISTORY: ??This is an asymptomatic 58 y.o. patient. INDICATION FOR EXAM: Mammogram Screening. TECHNIQUE: CC & MLO views were obtained. ??This study was evaluated with the assistance of Computer-Aided Detection. Breast Tomosynthesis was used in interpretation. COMPARISON FILM: Yes 06/13/22 [facility] 05/28/21 [facility] FINDINGS: ??The breasts have scattered areas of fibroglandular density. There are no dominant masses, suspicious micro calcifications or areas of architectural distortion. Kathy Lester DO MAMMO * ANTI HCV (08/16/2022 12:26 PM PERSONALIZED LIVING MANAGER) HEPATITIS C ANTIBODY Non-React katia Non-React katia 08/18/2022 11:37 AM PERSONALIZED LIVING MANAGER [facility] Comment:Antibodies to HCV no t detected; does not exclude the possibility of exposure to HCV. Blood BLOOD SPECIMEN / Unknown Venipuncture / Unknown 08/16/2022 12:26 PM PERSONALIZED LIVING MANAGER 08/16/2022 12:28 PM PERSONALIZED LIVING MANAGER Bridgett NUNEZ SEND OUTS Performing Organization Address City/[facility]/ZIP Co de Phone Number [facility] [address] [place] [address], * ANTI HIV 1/2 (08/16/2022 12:26 PM PERSONALIZED LIVING MANAGER) HIV-1/HIV-2 ANTIBODY Non-Reacti ve Non-Reacti ve 08/18/2022 11:37 AM PERSONALIZED LIVING MANAGER [facility] Comment:HIV-1 p24 and HIV-1/ HIV-2 Ab not detected. Blood BLOOD SPECIMEN / Unknown Venipuncture / Unknown 08/16/2022 12:26 PM PERSONALIZED LIVING MANAGER 08/16/2022 12:28 PM PERSONALIZED LIVING MANAGER Bridgett NUNEZ SEND OUTS [facility] [address] [place] [address], from Last 3 Months or Most Recently [...] Code Status Discussion: Not Discussed Care Teams Director Of Flight Operations Relationship Specialty Start Date End Date Kathy [place] [address] [place] [address] PCP - General Family Practice 01/16/23
--- OUTSIDE RECORDS SUMMARY | 2024-05-26 00:18 | XMS_ITS | Encounter Summary ---
Author Organization [facility] Address [address] [place] [address] Care Team Providers Care Wind Turbine Erector Name Role Phone Needs Pcp, Assignment Primary Care Provider [phone] Reason for Visit * Reason Comments Post-Op Check R MARYDOS: 02/08/24 Encounter Details Date Type Department Care Team (Late st Contact Info) Description 03/20/2024 10:00 AM CDT Office Visit [facility] [address] [place] [address] [place] [address] [facility] [address] [place] [address] S/P total right hip arthroplasty [...] 10:00 AM CDT Thank you for choosing [facility] for your health care visit today. Abdulkadir Ramos MD Orthopedic Surgeon Lower Extremity [facility] Advanced Imaging Scheduling: To schedule advanced imaging including MRI's, CT Scans, Ultrasounds and Fluoroscopic guided injections at a [facility] location please call [phone]. Medication Requests: Prescriptions are not filled on weekends or on weekdays after 3:00 PM. For all medication refills: Request a refill using [employer] or contact your pharmacy. [facility] Workers' Compensation [address] [place], [place] [id number] (Phone) Email: [email or web address] What is Know Your Cost? Know Your Cost is a service for patients and patient/members to call and receive personalized cost information and estimates across our care group. The phone number is (COST) Monday - Monday 8 AM to 5 PM Release of Information: Radiology/Imaging Health Information Management [address] [address] [place], [place] [address] (Phone) [phone] (Phone) [facility] documented in this encounter Progress Notes * [...] st Contact Info) Description 07/17/2024 10:40 AM CAMPUS MANAGER Appointment [facility] [address] Ophthalmology [address] [facility] [place], [place] [address] Nikita Bergeron MD [address] [place] [address] documented as of this encounter Goals Goal Patient Goal Type Associated Problems Recent Progress Patient-Stated? Author HIP REPLACEMENT - [facility] Care Plan [facility] HIP REPLACEMENT - [facility] Erwin Rose documented as of this encounter Visit Diagnoses Diagnosis S/P total right hip arthroplasty- Primary documented in this encounter Additional Health Concerns Active Problems Noted Date Diagnosed Date ET PROE HIP REPLACEMENT - [facility] documented as of this encounter Care Teams Wind Turbine Erector Relationship Specialty Start Date End Date Needs Pcp, Assignment [place], [place] [id number] PCP - General 03/14/23 documented as of this encounter
--- OUTSIDE RECORDS SUMMARY | 2024-05-26 00:18 | XMS_ITS | Encounter Summary ---
Author Organization [facility] Address [address] [place] [address] Care Team Providers Care General Ledger Bookkeeper Name Role Phone Needs Pcp, Assignment Primary Care Provider [phone] Reason for Visit * Reason Comments Post-Op Check Right MARY- 6-13-24 Encounter Details Date Type Department Care Team (Late st Contact Info) Description 03/13/2024 11:00 AM CDT Office Visit [facility] [address] [place] [address] Yadi Call PA-C [address] [place], [place] [address] Postoperative visit (Primary Dx); Draining postoperative wound, [...] care visit today. Yadi Call PA-C Physician Steam And Power Supervisor General Orthopedics [facility] Advanced Imaging Scheduling: To schedule advanced imaging including MRI's, CT Scans, Ultrasounds and Fluoroscopic guided injections at a [facility] location please call [phone]. Medication Requests: Prescriptions are not filled on weekends or on weekdays after 3:00 PM. For all medication refills: Request a refill using MyChart or contact your pharmacy. [facility] [employer] [address] [place] [address] (Phone) Email: [email or web address] What is Know Your Cost? Know Your Cost is a service for patients and patient/members to call and receive personalized cost information and estimates across our care group. The phone number is (COST) Monday - Monday 8 AM to 5 PM Release of Information: Radiology/Imaging Health Information Management [address] [address] [place] [address] (Phone) [phone] (Phone) [employer] documented in this encounter Progress Notes * [...] Info) Description 07/17/2024 10:40 AM DIRECTOR OF MEDIA Appointment [facility] [address] Ophthalmology [address] [facility] [place], [place] [address] Nikita Bergeron MD [address] [place], [place] [phone] documented as of this encounter Goals Goal Patient Goal Type Associated Problems Recent Progress Patient-Stated? Author HIP REPLACEMENT - [facility] Care Plan ET PROE HIP REPLACEMENT - [facility] Erwin Rose documented as of this encounter Visit Diagnoses Diagnosis Postoperative visit- Primary Draining postoperative wound, subsequent encounter Disruption of external operation (surgical) wound, not elsewhere classified, subsequent encounter documented in this encounter Additional Health Concerns Active Problems Noted Date Diagnosed Date ET PROE HIP REPLACEMENT - [facility] documented as of this encounter Care Teams General Ledger Bookkeeper Relationship Specialty Start Date End Date Needs Pcp, Assignment [place], [place] [address] PCP - General 03/14/23 documented as of this encounter
--- OUTSIDE RECORDS SUMMARY | 2024-05-26 00:18 | XMS_ITS | Encounter Summary ---
Author Organization [facility] Address [address] [place] [address] Care Team Providers Care Painter Touch Up Name Role Phone Needs Pcp, Assignment Primary Care Provider [phone] Reason for Visit * Procedure/Equipment (Routine) - Incomplete Specialty Diagnoses / Procedures Referred By Contac t Referred To Contact Procedures Foreign Image(S) XR Hip Rt Provider, Foreign Images [address] [place] [address] Referral ID Status Reason Start Date Expiration Date V isits Requested Visits Authorized [id number] Incomplete 03/12/2024 06/11/2025 1 1 Encounter Details Date Type Department Care Team (Late st Contact Info) Description 03/01/2024 3:15 PM CDT Ancillary Procedure [facility] [address] [place] [address] Provider, Foreign Images [address] [place] [address] Social History Tobacco Use Types Packs/Day Years [...] st Contact Info) Description 07/17/2024 10:40 AM STAKEHOLDER MANAGER Appointment [facility] [address] Op[address]mology [address] [facility] [place] [address] Nikita Bergeron MD [address] [place] [address] documented as of this encounter Goals Goal [...] documented as of this encounter Care Teams Painter Touch Up Relationship Specialty Start Date End Date Needs Pcp, [place] [address] PCP - General 03/14/23 documented as of this encounter
--- OUTSIDE RECORDS SUMMARY | 2024-05-26 00:18 | XMS_ITS | Encounter Summary ---
Author Organization [facility] Address [address] [place] [address] Care Team Providers Care Electrolysis Engineer Name Role Phone Needs Pcp, Assignment Primary Care Provider +1 [phone] Reason for Visit * Reason Comments Post-Op Problem INCISION DRAINING Nausea WEAKNESS Encounter Details Date Type Department Care Team (Late st Contact Info) Description 02/26/2024 Telephone [facility] 1601 Orthopedics 1601 [place] [address] Sagrario Jimenez PA-C [address] [place] [id number] Post-Op Problem; INCISION DRAINING; Nausea; WEAKNESS Social [...] advised to go to the ED at [place] today. Discussed to have someone drive her, but if unable to get into a vehicle safely or find someone to cdl company flatbed driver her to call 911 to be brought to the ED. The pt verbalized understanding and agrees to go to the ED today for evaluation. DOS: 02/08/24 right MARY Last office visit 02/26/24 Future Appointments Provider Department Center 03/20/2024 10:00 AM (Arrive by 9:45 AM) Abdulkadir Ramos MD [facility] 07/17/2024 10:40 AM Nikita Bergeron MD [facility] 3900 Ophthalmology PN [id number] * Nish Millan [...] st Contact Info) Description 07/17/2024 10:40 AM REELING AND TUBING MACHINE OPERATOR Appointment [facility] 390 Ophthalmology 3900 [facility] [place], [place] [address] Nikita Bergeron MD 3900 [place], [place] [address] documented as of this encounter Goals Goal [...] documented as of this encounter Care Teams Electrolysis Engineer Relationship Specialty Start Date End Date Needs Pcp, Assignment [place], [place] [phone] PCP - General 03/14/23 documented as of this encounter
--- OUTSIDE RECORDS SUMMARY | 2024-05-26 00:18 | XMS_ITS | Clinical Summary ---
Author Organization [facility] Address [address] [place] [address] Care Team Providers Care Fish Butcher Name Role Phone Needs Pcp, Assignment Primary Care Provider +[phone] Source Comments You are receiving this document as you are listed as the primary care provider,follow-up provider, or the patient has been referred to you for consultation.This is in compliance with the Medicare andProm[facility] Hospitalcaid EHR Incentive Program,which states Providers who transition their patient to another setting of careor provider of care or refers their patient to another provider of care shouldprovide summary care record for each transition of care or referral. [facility] Allergies Active Allergy Reactions Criticality Noted Date [...] migh t be different from the original. Photovoltaic Power Systems Engineer - Primary Care Name & Phone Number: Alla Lemus, [facility] [phone] Care Coordination Focus: housing, mental health, community [...] (02/21/2018): Added automatically from request for surgery [id number] Ovarian mass 01/27/2018 Herpes simplex vulvovaginitis 01/16/2018 [...] to h/o Sweets. Smoker 07/05/2018 12/08/2020 Health skilled nursing, active care coordination 06/02/2018 01/23/2019 Overview (06/02/2018): Photovoltaic Power Systems Engineer: Alla Lemus Plant Control Aide Photovoltaic Power Systems Engineer - [facility], Care coordination focus: housing, mental health, community resources Living situation: with cousins in uncomfortable situation Skin lesion 01/27/2018 12/08/2020 Acute hypokalemia 01/25/2018 02/09/2018 Cellulitis of left lower extremity 01/23/2018 02/09/2018 Sepsis 01/23/2018 02/09/2018 Cellulitis of left leg 01/23/201805/10 Overview (01/25/2018): Added automatically from request for surgery [id number] Thyroid nodule 06/09/2017 07/11/2017 Overview (06/09/2017): 1.8 cm left thyroid nodule. Incidental finding. S/P partial hysterectomy 03/05/2012 Overview (04/28/2016): 2005 Anxiety state 08/11/2010 01/30/2013 Overview (04/19/2017): Anxiety NOS Encounters Date Type Department Care Team Description 03/20/2024 10:00 AM CDT Office Visit [facility] [address] [place] [phone] Abdulkadir Ramos MD S/P total right hip arthroplasty (Primary Dx) 03/13/2024 11:00 AM CDT Office Visit [facility] [address] [place] [phone] Yadi Call PA-C Postoperative visit (Primary Dx); Draining postoperative wound, subsequent encounter; Disruption of external operation (surgical) wound, not elsewhere classified, subsequent encounter 03/01/2024 3:15 PM CDT Ancillary Procedure Radiology [facility]ACS [address] [place] [address] Provider, Foreign Images 02/26/2024 2:00 PM CDT Office Visit [place] [address] [place] [address]. [place] [address] Sagrario Jimenez PA-C S/P total right hip arthroplasty (Primary Dx) 02/26/2024 Telephone [facility] 160 Orthopedics 1601 [facility] [place] [address] Sagrario Jimenez PA-C Post-Op Problem; INCISION DRAINING; Nausea; WEAKNESS from Last 3 Months Immunizations Name Administration [...] CDT Oxygen Saturation 98% 11/01/2022 12:38 PM NICKING MACHINE OPERATOR Inhaled Oxygen Concentration - - Weight 113.4 kg (250 lb) 03/20/2024 9:41 AM CDT Height 176.5 cm (5' 9.5) 03/20/2024 9:41 AM CDT Body Mass Index 36.39 03/20/2024 9:41 AM CDT Plan of Treatment Upcoming Encounters Date Type Department Care Team (Late st Contact [facility]) Description 07/17/2024 10:40 AM NICKING MACHINE OPERATOR Appointment [facility] [address] [place] [address] Nikita Bergeron MD [address] [place] [address] Health Maintenance Due Date Last Done Comments [...] HIP REPLACEMENT - RIGHT - [facility] Care Plan ET PROE HIP REPLACEMENT - RIGHT - [facility] Erwin Rose Procedures Procedure Name Priority Date/Time Associated Diagnosis Comments FOREIGN IMAGE(S) XR HIP RT Routine 03/01/2024 3:15 PM CDT MM MAMMOGRAM SCREENING BILAT W CAD Routine [...] Foreign Images Provider RAD NON-REPORTAB LES POCT * MM Mammogram Screening Bilat W CAD [...] CAD performed on 06/13/22 Compared to: 05/28/2021 YMM Mammogram Diag Bilat W 3D Pino, 07/16/2020 MM Mammogram Screening Bilat W CAD, and 01/08/2019 MM Mammogram Screening Bilat W CAD ?? FINDINGS: Bilateral screening mammogram was performed with the assistance of Computer-Aided Detection . The breasts have scattered areas of fibroglandular density. There is no radiographic evidence of malignancy. ?? Araceli Orlando APRN, CNP RAD KEVIN * Hemoglobin A1C Glycosylated (03/12/2021 12:21 PM CDT) Hemoglobin A1C 5.5 <=5.6 % 03/12/2021 8:09 PM CDT [facility] Blood Venipuncture / Unknown 03/12/2021 12:21 PM CDT 03/12/2021 12:21 PM CDT Araceli Orlando APRN, CNP LAB_1 Performing Organization Address City/[facility]/ZIP Co de Phone Number [facility] [address] [phone] * FIT Colon Rectal Cancer Screening (02/05/2020 5:08 PM CDT) FIT Specimen 1 Negative Negative 02/10/2020 2:02 PM CDT [facility] Stool 02/05/2020 5:08 PM CDT 02/05/2020 5:08 PM CDT Araceli Orlando APRN, CNP LAB_1 Performing Organization Address [facility]/ZIP Co de Phone Number [facility] [address] [place] [address], [facility] [phone] * (ABNORMAL) Lipid Panel - LDLD If Trig High (01/30/2020 10:28 AM CDT) Cholesterol 208(H) 0 - 199 mg/dL 01/30/2020 10:55 AM T [facility] Triglyceride 84 <=149 mg/dL 01/30/2020 10:55 AM T [facility] HDL Cholesterol 44 >=40 mg/dL 01/30/2020 10:55 AM T [facility] LDL, Calculated 147(H) <130 mg/dL 01/30/2020 10:55 AM CDT [facility] Non HDL Chol, Calculated 164 mg/dL 01/30/2020 10:55 AM CDT [facility] Cholesterol/HDL Ratio 4.7 01/30/2020 10:55 AM CDT [facility] Hours Fasting Unknown 01/30/2020 10:55 AM CDT [facility] Blood Venipuncture / Unknown 01/30/2020 10:28 AM CDT 01/30/2020 10:28 AM CDT Araceli Orlando APRN, CNP LAB_1 Performing Organization Address [facility]/ZIP Co de Phone Number [facility] [address] [place] [address], [facility] [phone] * Hepatitis C Antibody, with Reflex (01/28/2018 6:39 AM CDT) Hepatitis C Antibody Nonreactive Nonreactive PN SOFT 01/28/2018 6:39 AM CDT 01/28/2018 6:47 AM CDT Narrative PN SOFT - 01/28/2018 7:26 AM CDT Performed at [address] [address] CLIA number [id number] Janny Dickey MD LAB_1 Performing Organization Address [facility] de Phone Number PN SOFT [address] [place] [address] * HIV 1/2 Ag/Ab 4th Generation (01/25/2018 6:50 AM CDT) HIV-1 p24 Ag and HIV-1/HIV-2 Ab Nonreactive Nonreactive PN SOFT 01/25/2018 6:50 AM CDT 01/25/2018 6:57 AM CDT Narrative PN SOFT - 01/25/2018 7:55 AM CDT Performed at [address] [address] CLIA number [id number] Ahsan Simms MD LAB_1 PN SOFT [address] [place] [address] from Last 3 Months or Most Recently Relevant to Health Maintenance Additional Health Concerns Active Problems Noted Date Diagnosed Date ET PROE HIP REPLACEMENT - RIGHT - [facility] Advance Directives * Full Code (Latest Code Status on File) Date Activated Date Inactivated Comments 04/10/2018 3:21 PM 04/12/2018 1:13 PM * Full Code Date Activated Date Inactivated Comments 01/23/2018 3:27 PM 01/29/2018 4:33 PM Care Teams Fish Butcher Relationship Specialty Start Date End [place] [address] PCP - General 03/14/23
--- OUTSIDE RECORDS SUMMARY | 2024-05-26 00:18 | XMS_ITS | Encounter Summary ---
Author Organization [facility] Address [address] [place] [address] Care Team Providers Care Color Mixer Name Role Phone Needs Pcp, Assignment Primary Care Provider [phone]- [phone] Reason for Visit * Reason Comments Follow-up Incision check S/p L eft MARY DOS 02/08/2024 Encounter Details Date Type Department Care Team (Late st Contact Info) Description 02/26/2024 2:00 PM CDT Office Visit [facility] 1601 [facility] [place] [address] Sagrario Jimenez, HENRIQUE [address] [place] [address] S/P total right hip arthroplasty (Primary Dx) [...] follow up after right total hip arthroplasty Knitting Machine Mechanic Present: no HPI: Barbara Martinez is a [...] st Contact Info) Description 07/17/2024 10:40 AM GLASS MECHANIC Appointment [facility] 3900 Ophthalmology [address] [place] [facility] [place], [place] [address] Nikita Bergeron MD [address] [place] [address] documented as of this encounter Goals Goal Patient Goal Type Associated Problems Recent Progress Patient-Stated? Author HIP REPLACEMENT - [facility] Care Plan ET PROE HIP REPLACEMENT - [facility] No Erwin Moran documented as of this encounter Visit Diagnoses Diagnosis S/P total right hip arthroplasty- Primary documented in this encounter Additional Health Concerns Active Problems Noted Date Diagnosed Date ET PROE HIP REPLACEMENT - RIGHT - [facility] documented as of this encounter Care Teams Color Mixer Relationship Specialty Start Date End Date Needs Pcp, [place] [address] PCP - General 03/14/23 documented as of this encounter
--- OUTSIDE RECORDS SUMMARY | 2024-05-26 00:19 | XMS_ITS | Encounter Summary ---
Author Organization [facility] Address [address] [place] [address] Care Team Providers Care Flatbed Company Driver Name Role Phone Needs Pcp, Assignment Primary Care Provider +1 [phone] Reason for Visit * Procedure/Equipment (Routine) - Incomplete Specialty Diagnoses / Procedures Referred By Contac t Referred To Contact Diagnoses S/P total right hip arthroplasty Procedures XR Pelvis W Rt Lateral Hip Sagrario Jimenez PA-C [address] [place] [address] Referral ID Status Reason Start Date Expiration Date V isits Requested Visits Authorized [id number] Incomplete 02/19/2024 05/20/2025 1 1 Encounter Details Date Type Department Care Team (Latest Contact Info) Description 02/19/2024 1:55 PM CDT Ancillary Procedure [place] [facility] 1601 Radiology 1601 [facility]. [place] [address] Sagrario Jimenez PA-C [address] [place] [address] S/P total right hip arthroplasty Social History [...] st Contact Info) Description 07/17/2024 10:40 AM COIL WINDER Appointment [facility] 3900 Ophthalmology 3900 [facility] [place], [place] [address] Nikita Bergeron MD 3900 [place], [place] [id number] documented as of this encounter Goals Goal Patient Goal Type Associated Problems Recent Progress Patient-Stated? Author HIP REPLACEMENT - RIGHT - [facility] Care Plan ET PROE HIP REPLACEMENT - RIGHT - [facility] Erwin Rose documented as of [...] documented as of this encounter Care Teams Flatbed Company Driver Relationship Specialty Start Date End Date Needs Pcp, [place] [address] PCP - General 03/14/23 documented as of this encounter
--- OUTSIDE RECORDS SUMMARY | 2024-05-26 00:19 | XMS_ITS | Encounter Summary ---
Author Organization [facility] Address [address] [address] Care Team Providers Care Manager Critical Care Name Role Phone Needs Pcp, Assignment Primary Care Provider +1- [phone] Reason for Visit * Reason Comments QUESTIONS, GENERAL Encounter Details Date Type Department Care Team (Late st Contact Info) Description 02/12/2024 [facility] [address] [place] [address] [place] [address] [facility] 1ST [place] [address] QUESTIONS, GENERAL Social History Tobacco [...] may we help you today? Fely from [facility] calling stating to cancel message that they [...] send you a message in myChart? No [Summer Clerk/Furniture Mechanic: Relay to patient; We make every effort to get back to you sameday, however it may take 1-2 business days depending on the nature of the communication.] * July Reza - 02/12/2024 2:06 PM CDT GENERAL QUESTIONS How may we help you today? Fely from [facility] requesting to reschedule patients post op visit to next week. Patient is currently scheduled for 02/14/24. [employer] does not see any available slots on providers schedule for next week. Describe your symptoms/concerns: When did the issue start: Have you been seen for this recently?: If we are unable to reach you can we leave a detailed message on your voicemail? If we are unable to reach you can we send you a message in myChart? [Summer Clerk/Furniture Mechanic: Relay to patient; We make every effort to get back to you sameday, however it may take 1-2 business days depending on the nature of the communication.] documented in this encounter Plan of Treatment Upcoming Encounters Date Type Department Care Team (Late st Contact Info) Description 07/17/2024 10:40 AM BODY AND FENDER MECHANIC APPRENTICE Appointment [facility] 3900 Ophthalmology 3900 [place] [address] Nikita Bergeron MD 3900 [place] [address] documented as of this encounter Goals Goal Patient Goal Type Associated Problems Recent Progress Patient-Stated? Author HIP REPLACEMENT - [facility] Care Plan ET PROE HIP REPLACEMENT - [facility] Erwin Rose documented as of this encounter Visit Diagnoses Not on filedocumented in this encounter Additional Health Concerns Active Problems Noted Date Diagnosed Date ET PROE HIP REPLACEMENT - RIGHT [facility] 05/ documented as of this encounter Care Teams Manager Critical Care Relationship Specialty Start Date End Date Needs Pcp, [place] [address] PCP - General 03/14/23 documented as of this encounter
--- OUTSIDE RECORDS SUMMARY | 2024-05-26 00:19 | XMS_ITS | Encounter Summary ---
Author Organization [facility] Address [address] [place] [address] Care Team Providers Care Currency Examiner Name Role Phone Needs Pcp, Assignment Primary Care Provider +[phone] Reason for Referral * Procedure/Equipment (Routine) - Incomplete Specialty Diagnoses / Procedures Referred By Contac t Referred To Contact Diagnoses S/P total right hip arthroplasty Procedures XR Pelvis W Rt Lateral Hip Sagrario Jimenez PA-C [address] [place] [address] Referral ID Status Reason Start Date Expiration Date V isits Requested Visits Authorized [id number] Incomplete 02/19/2024 05/20/2025 1 1 Reason for Visit * Reason Comments Post-Op Follow Up Right MARY DOS 2023 Encounter Details Date Type Department Care Team (Late st Contact Info) Description 02/19/2024 2:00 PM CDT Office Visit [facility] Orthopedics [address] [place] [address] Sagrario Jimenez PA-C [address] [id number] Left hip pain; S/P total right hip [...] follow up after right total hip arthroplasty [employer] Present: no HPI: Barbara Martinez is a [...] st Contact Info) Description 07/17/2024 10:40 AM HOOKER INSPECTOR Appointment [facility] 3900 Ophthalmology 3900 [facility] [place], [place] [id number] Nikita Bergeron MD 3900 [place] [address] Scheduled Orders Name Type Priority Associated Diagnoses Orde r Schedule Aerobic & Anaerobic Culture Panel Microbiology Routine S/P total right hip arthroplasty Expected: 02/19/2024, Expires: 05/19/2024 documented as of this encounter Goals Goal Patient Goal Type Associated Problems Recent Progress Patient-Stated? Author HIP REPLACEMENT - [facility] Care Plan ET PROE HIP REPLACEMENT - [facility] Erwin Rose documented as of [...] % 81 % 02/20/2024 12:15 AM CDT [facility] Lymphocyte % 2 % 02/20/2024 12:15 AM CDT [facility] Monocyte/Macrop maulik % 17 % 02/20/2024 12:15 AM CDT [facility] Synovial Fluid RIGHT HIP REGION STRUCTURE / Unknown 02/19/2024 3:45 PM CDT 02/19/2024 3:48 PM CDT Sagrario Jimenez PA-C LAB_1 Performing Organization Address [facility] de Phone Number [facility] [address] * (ABNORMAL) Body Fluid Cell Count (02/19/2024 3:45 PM CDT) Type Synovial Fluid 02/20/2024 12:15 AM CDT [facility] Source Hip, right 02/20/2024 12:15 AM CDT [facility] Appearance Bloody(A) Clear 02/20/2024 12:15 AM CDT [facility] Red Blood Cells 177,000 /uL 02/20/2024 12:15 AM CDT [facility] Comment:The reference interv al has not been established. The test result must be integrated into the clinical context for interpretation. Total Nucleated Cells 8,587 /uL 02/20/2024 12:15 AM CDT [facility] Comment:The reference interv al has not been established. The test result must be integrated into the clinical context for interpretation. Synovial Fluid RIGHT HIP REGION STRUCTURE / Unknown 02/19/2024 3:45 PM CDT 02/19/2024 3:48 PM CDT Sagrario Jimenez PA-C LAB_1 Performing Organization Address [facility] Co de Phone Number [facility] [address] [place] [address], [place] * Body Fluid Aerobic Culture (02/19/2024 3:45 PM CDT) Body Fluid Culture No growth after 3 days 02/23/2024 12:20 PM CDT [facility] Gram Smear Few PMN's Present 02/23/2024 12:20 PM CDT [facility] Gram Smear No Organisms Seen 02/23/2024 12:20 PM CDT [facility] Synovial Fluid RIGHT HIP REGION STRUCTURE / Unknown 02/19/2024 3:45 PM CDT 02/19/2024 3:48 PM CDT Sagrario Jimenez PA-C LAB_[address] [address], [facility] * XR Pelvis W Rt Lateral Hip [...] documented as of this encounter Care Teams Currency Examiner Relationship Specialty Start Date End Date Needs [facility]cp, [facility] [place] [address] PCP - General 03/14/23 documented as of this encounter
== END 2024-05-20 14:12 | disposition home or self-care (01) ==
LOC: AMB 05-26 00:15
PROVIDERS: PCP Student in an Organized Health Care Education/Training Program; Visit Provider Student in an Organized Health Care Education/Training Program
DX: S09.90XA Unspecified injury of head, initial encounter (principal); S29.9XXA Unspecified injury of thorax, initial encounter; V49.69XA Unspecified car occupant injured in collision with other motor vehicles in traffic accident, initial encounter; Y92.410 Unspecified street and highway as the place of occurrence of the external cause
CPT/HCPCS: A0425; A0427

== ENCOUNTER 2024-05-20 14:46 | Emergency (ER) | payer OTHER, SELFPAY ==
[2024-05-20] VITALS (11 sets, daily range): BP systolic 117–149; BP diastolic 76–102; PULSE 68–83; RESP 12–18; TEMP 37.8; O2SAT 92–99; BMI 31.0
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
[2024-05-20 15:13] LABS: Basophils Absolute Auto 0.01 K/uL (0.00-0.30); Basophils Percent Auto 0.2 % (0.0-3.0); Eosinophils Absolute Auto 0.05 K/uL (0.00-0.50); Eosinophils Percent Auto 0.8 % (0.0-7.0); Hematocrit 38.8 % (33.0-51.0); Hemoglobin* 12.5 gm/dL (12.0-16.0); Immature Granulocytes Abs Auto 0.01 K/uL (0.00-0.30); Immature Granulocytes Pct Auto 0.2 %; Lymphocytes Absolute Auto 2.61 K/uL (0.90-2.90); Lymphocytes Percent Auto 42.3 % (20-44); Mean Corpuscular HGB Conc 32 gm/dL (32-36); Mean Corpuscular Hemoglobin 30 pg (26-34); Mean Corpuscular Volume 94 fL (80-100); Monocytes Percent Auto 4.9 % (0.0-11.0); Neutrophils Absolute Auto 3.19 K/uL (1.7-7.0); Neutrophils Percent Auto 51.6 % (42.0-72.0); Platelet Count* 227 K/uL (140-440); RDW Coefficient of Variation % 12.5 % (11.5-15.5); Red Blood Count 4.14 m/uL (4.00-5.20); White Blood Count* 6.17 K/uL (4.50-11.00)
[2024-05-20 15:15] LABS: Slide Review Reflex No
[2024-05-20 15:30] LABS: Albumin* 4.6 g/dL (3.3-5.0); Chloride* 107 mmol/L (96-114)
[2024-05-20 15:31] LABS: Potassium* 3.5 mmol/L (3.6-5.1); Sodium* 138 mmol/L (135-149)
[2024-05-20 15:33] LABS: Alkaline Phosphatase* 119 U/L (40-150); Anion Gap 8 mEq/L (7-15); Aspartate Amino Transferase* 27 U/L (12-35); Bilirubin Total* 0.5 mg/dL (0.1-1.5); Carbon Dioxide* 23 mmol/L (20-32); Creatinine* 0.8 mg/dL (0.5-1.5); Estimated Glomerular Filt Rate 85 ml/min; Total Protein* 8.3 g/dL (6.0-8.3)
[2024-05-20 15:34] LABS: Alanine Aminotransferase* 16 U/L (4-35); Blood Urea Nitrogen* 14 mg/dL (7-30); Calcium* 9.6 mg/dL (8.4-10.6); Glucose* 91 mg/dL (60-115)
[2024-05-20 15:35] LABS: Troponin, Point-of-Care* 0.01 ng/ml (0.01-0.04)
[2024-05-20 15:46] LABS: Troponin I* < 0.01 ng/mL (0.01-0.04)
--- OUTSIDE RECORDS SUMMARY | 2024-05-20 15:51 | XMS_ITS | Clinical Summary ---
Author Organization [employer] [facility] Address [place] [address] Care Team Providers Care Hogshead Stock Clerk Name Role Phone Kathy Lester DO Primary Care Provider [phone] Allergies Active Allergy Reactions Criticality Noted Date Comments Pravastatin Nightmares 11/16/2023 Rosuvastatin GI Upset 04/19/2023 Sulfa (Sulfonamide Antibiotics) Rash 04/28 Medications Medication Sig Dispensed Refills Start Date End Date Status albuterol HFA (PRO-AIR; VENTOLIN; PROVENTIL) 90 mcg/actuation inhalerIndications: acute asthma attack Inhale 1 Puff by mouth every 4 hours if needed for Shortness Of Breath or Wheezing. 8.5 g 02/03/2023 Active latanoprost (XALATAN) 0.005 % ophthalmic solutionIndications :ocular hypertension Place 1 Drop into both eyes at bedtime. 2.5 mL 02/03/2023 Active WalkerIndications:S tatus post total replacement of left hip Walker with front wheels for home use. 1 Each 02/08/2023 Active inhalational spacing deviceIndications:C hronic shortness of breath For home use. 1 Each 09/04/2023 Active acetaminophen (TYLENOL EXTRA STRGTH) 500 mg tabletIndications:p ain Take 2 Tablets (1,000 mg) by mouth every 6 hours if needed for Pain. Max acetaminophen dose: 4000mg in 24 hrs. 60 Tablet 03/08/2024 Active durable medical equipment (DME)Indications:Id iopathic hypotension Blood pressure cuff 1 Each 03/15/2024 Active CPAPIndications:Mil d obstructive sleep apnea CPAP machine for home use at pressure 8 cmw epr 3, CPAP mask- mask of choice, fit to comfort one per 3 months 1 Each 11 03/28/2024 Active rivaroxaban (Xarelto) 10 mg tabletIndications:H istory of pulmonary embolism TAKE 1 TABLET(10 MG) BY MOUTH EVERY EVENING WITH A MEAL 90 Tablet 3 04/08/2024 Active metroNIDAZOLE 0.75 % gelIndications:Nadya oral dermatitis Apply to affected area once daily for 8 weeks. 45 g 3 05/03/2024 Active Active Problems Problem Noted Date Diagnosed Date Surgical wound infection 03/02/2024 Ventura second degree AV block 01/23/2024 AV block, Mobitz 1 01/23/2024 CHINYERE (obstructive sleep apnea) 01/23/2024 Other cardiomyopathies 09/04/2023 Status post total replacement of left hip 2022 History of pulmonary embolism 11/30/2022 Primary osteoarthritis of both hips 11/28/2022 01/16/2023 Pulmonary nodule, right 09/08/2022 Overview (09/08/2022): CT March 2022, through [facility]? Repeat one year. Mild obstructive sleep apnea 06/28/2022 Overview (01/16/2023): Currently using mouth guard. Needs CPAP machine. 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 Mass of right ovary 01/27/2018 Overview (06/28/2022): Added automatically from request for surgery [id number] Herpes simplex vulvovaginitis 01/16/2018 Lipoma of anterior chest wall 10/15/2017 Multiple thyroid nodules 07/11/2017 Overview (06/28/2022): Benign Primary open angle glaucoma of both eyes, modera te stage 04/20/2016 Overview (06/28/2022): Tmax mid 20s; thin avg CCT; moderate cupping w OCT changes L>R; VF: mild nasal step R, inferior arcuate L Vitamin D deficiency 01/31/2013 GERD (gastroesophageal reflux disease) 3 Generalized anxiety disorder 03/23/2011 Morbid obesity 08/11/2010 Overview (06/28/2022): Obesity Morbid Encounters Date Type Department Care Team Description 05/03/2024 1:15 PM CDT Office Visit [facility] [place] [address] [place] [address] Olga Fitzgerald PA Rash (Rash around face and behind ears, on and off for 1 month. No new beauty products) 05/03/2024 Travel 04/22/2024 11:38 AM CDT - 04/22/2024 2:10 PM CDT Emergency [facility] [address] [place] [address] Thad Cummings PA Right-sided chest wall pain (Primary Dx); Nausea Discharge Disposition: Home Self Care 04/22/2024 10:44 AM CDT - 04/22/2024 11:37 AM CDT Hospital Encounter [facility] [address] [place] [address] Pulmonary embolism and infarction (HC) 04/22/2024 10:30 AM CDT Office Visit [facility] [address] [place] [phone] Romana Lan MD Consult (Pulmonary embolism) 04/22/2024 Travel 04/07/2024 Refill [facility] [address] [place] [address] Kathy Lester DO Refill Request (Xarelto) 04/02/2024 10:30 AM CDT Home Care Visit [facility] [address] [place] [phone] Cat Anderson, PT PT - OASIS DISCHARGE 03/28/2024 10:00 AM CDT Home Care Visit [facility] [address] [place] [phone] Leona Cano, RN SN - DISCIPLINE DISCHARGE 03/28/2024 Orders Only [facility] [address] [place] [address] Lamin Dumont MD <No scans attached> 03/28/2024 Telephone [facility] [address] [place] [address] Lamin Dumont MD 03/26/2024 11:00 AM CDT Home Care Visit [facility] [address] [place] [phone] Cat Anderson, PT PT - HOME VISIT 03/25/2024 Home Care Visit [facility] [address] [place] [phone] Cat Anderson, PT CARE COORDINATION 03/21/2024 10:00 AM CDT Home Care Visit [facility] [address] [place] [phone] Dai Lazar LPN ORDER BOOKER - HOME VISIT 03/21/2024 Home Care Visit [facility] [address] [place] [phone] Annita Thompson, RN CARE COORDINATION 03/21/2024 Telephone [place] [id number] [place] [address] Annita Thompson, cogeneration technician (Ortho BP) 03/20/2024 Telephone [facility] [address] [place] [address] Petrona Villa, SURFBOARD MAKER Appointment 03/19/2024 10:00 AM CDT Home Care Visit [facility] [address] [place] [phone] Neel Soto, PT PT - HOME VISIT 03/19/2024 Telephone [facility] [address] [place] [address] Annita Thompson, cogeneration technician (BP cuff) 03/19/2024 Home Care Visit [facility] [address] [place] [phone] Annita Thompson, MICHELINE SN - TELEHEALTH VISIT 03/15/2024 2:05 PM CDT Office Visit [facility] [place] [address] [place] [address] Kathy Lester, Medication Management (xarelto- wants to try to go off); Breathing Problem (tightness in chest/); Post Procedure 03/15/2024 Travel 03/14/2024 10:00 AM CDT Home Care Visit [place] [id number] [place] [phone] Dai Lazar LPN ORDER BOOKER - HOME VISIT 03/14/2024 Orders Only [facility] [address] [place] [address] Kathy Lester, DO <No scans attached> 03/14/2024 Orders Only [facility] [address] [place] [address] Laney Lesteri, DO <No scans attached> 03/12/2024 2:00 PM CDT Home Care Visit [facility] [address] [place] [phone] Alysia Leyva, MICHELINE SN - INITIAL ASSESSMENT 03/11/2024 10:00 AM CDT Home Care Visit [place] [id number] [place] [phone] Neel Soto, PT PT - OASIS START OF CARE 03/11/2024 Telephone [facility] [address] [facility] [place] [phone] Neel Soto, PT Home Care 03/11/2024 Plan of Care Documentation [facility] [address] [place] [phone] 03/11/2024 Travel 03/11/2024 Patient Outreach [facility] [place] [address] [place] [address] Graciela Hou, RN Primary RN Care Management; Hospital F/U ([facility]) 03/09/2024 Transcribe Orders [facility] [address] [place] [phone] Jani Natarajan, 03/06/2024 1:37 PM CDT Anesthesia Event [address] [address] Jung Cotter MD 03/06/2024 12:25 PM CDT - 03/06/2024 2:35 PM CDT Surgery [address] [address] Abdulkadir Ramos MD Right Hip Wound Superficial excisional Irrigation and Debridement 03/01/2024 11:39 AM CDT - 03/08/2024 2:49 PM CDT Hospital Encounter [address] [address] Braydon Villanueva MD Samimian, Pezhman, MD Nguyen, Brandon Nhat, DO Postoperative infection, unspecified type, initial encounter (Primary Dx); Pain of right hip; History of total right hip replacement; Surgical wound infection; Status post total replacement of right hip Discharge Disposition: Home Self Care 03/01/2024 Travel 02/27/2024 Nurse Triage [facility] [place] [address] [place] [address] Kathy Lester Blood Pressure from Last 3 Months Immunizations Name Administration Dates Next Due COVID-19 vaccine (Moderna 100mcg/0.5mL) PF, MDV 02/02/2021,01/01/2021 Influenza Virus, Unspecified 07/29/2010 Influenza, IIV3 (Age >=3 years) 05/16/2011 Pneumococcal Poly,23-Valent (Pneumovax) 06/18/20 19 Td (Age >=7 Years) 10/26/2005 Tdap 02/05/2016 Zoster (Shingrix-RZV, recombinant) 03/24/2021 Family History Medical History Relation Name Comments Cancer-breast Maternal Aunt Cancer-ovarian No Family History Relation Name Status Comments Maternal Aunt Social History Tobacco Use Types Packs/Day Years Used Date Smoking Tobacco: Former Cigarettes 0.5 25 1 - 08/28/2023 Smokeless Tobacco: Never Tobacco Cessation:Counseling Given: Yes Alcohol Use Standard Drinks/Week Comments Yes 0 (1 standard drink = 0.6 oz pur e alcohol) rare wine use PHQ-2 Answer Date Recorded PHQ-2 TOTAL SCORE 0 08/04/2023 Social Connections Answer Date Recorded Frequency of Communication with Friends and Fami ly 0 02/10/2024 Financial Resource Strain Answer Date R ecorded Difficulty of Paying Living Expenses 3 02/10/2024 Difficulty of Paying Living Expenses Not on file 02/10/2024 Food Insecurity Answer Date Recorded Worried About Running Out of Food in the Last Ye ar 1 02/10/2024 Transportation Needs Answer Date Record ed Lack of Transportation (Medical) 1 02/10/2024 Housing Stability Answer Date Recorded Unable to Pay for Housing in the Last Year 1 02/10/2024 Sex and Gender Information Value Date Recorded Sex Assigned at Not on file Gender Identity Not on file Sexual Orientation Not on file Obstetrics History Last Filed Vital Signs Vital Sign Reading Time Taken Comments Blood Pressure 105/70 05/03/2024 1:02 PM CDT Pulse 65 05/03/2024 1:02 PM CDT Temperature 36.8 ??C (98.3 ??F) 04/22/2024 1 1:42 AM CDT Respiratory Rate 18 04/22/2024 11:4 2 AM CDT Oxygen Saturation 97% 04/22/2024 12: 00 PM CDT Inhaled Oxygen Concentration - - Weight 112.5 kg (248 lb 1.6 oz) 024 11:42 AM CDT Height 177.8 cm (5' 10) 04/22/2024 11: 42 AM CDT Body Mass Index 35.6 04/22/2024 11:42 AM CDT Plan of Treatment Upcoming Encounters Date Type Department Care Team (Late st Contact Info) Description 06/05/2024 2:10 PM CDT Office Visit [facility] [address] [facility] [address] [place], [place] [id number] Lesly Grossman MD [address] [facility] [address] [place] [address] Health Maintenance Due Date Last Done Comments Fecal testing sDNA-FIT (Cologuard) for age 45-75 2010 Zoster (shingles) series for age 50+ (2 of 2) 05/19/2021 03/24/2021 COVID-19 vaccine series ( - 2022- season) 2024 02/02/2021, 01/01/2021 Influenza for age 50-64 04/28/2024 05/16/2011, 07/29 Mammogram for age 45-75 06/06/2024 06/06/20, 05/28/2021 (Verified in Care Everywhere or Patient Record), 01/15/2009 Depression screening for age 12+ 08/04/2024 08/04/2023, 05/08/2019, 04/12/2019 BMI (ht and wt on same day) for age 18+ 02/04/2025 02/05/2024, 01/23/2024, 01/18/2024, Additional history exists Tetanus booster 02/04/2026 02/05/2016, 10/26/2005 Lipids for age 45-75 08/04/2028 08/04/2023, 08/16/2022, 11/24/2010 Tdap Completed 02/05/2016 Pneumococcal series for age 6-64 Aged Out 06/18/2019 No longer eligible based on patient's age to complete this topic HIV for age 15-65 Completed 08/16/2022 Hepatitis C screening for age 18-79 Completed 08/16/2022 Medical Devices Implanted Type Area Manager Landscape Device Identifier Shelf Expiration Date Model / Serial / Lot Prime Am Quad Shell 54mm Group D Implanted:Qty: 1 on 02/08/2024 by Abdulkadir Ramos MD at [facility] Ortho Total Joint Right: Hip [employer] 01/02/2032 [id number] / / [id number] Ceramic Femoral Head Size 36mm (L, +4mm) Implanted:Qty: 1 on 02/08/2024 by Abdulkadir Ramos MD at [facility] Ortho Total Joint Right: Hip [employer] 10/26/2028 [id number] / / [id number] Liner Acetab 36mm Prime A-Class Group D - [id number] Implanted:Qty: 1 on 02/02/2023 by Abdulkadir Ramos MD at [facility] Left: Hip [employer] 06/08/2029 [id number] / / [id number] Prime Am Quad Shell Implanted:Qty: 1 on 02/02/2023 by Abdulkadir Ramos MD at [facility] Left: Hip 12/30/2030 [id number] / / [id number] Description:54MM GROUP D Stem Hip Sz 7 Profemur Gladiator Classic Std - [id number] Implanted:Qty: 1 on 02/02/2023 by Abdulkadir Ramos MD at [facility] Left: Hip [employer] 07/30/2029 [id number] / / [id number] Head Hip Od36mm +0 Biolox Delta - [id number] Implanted:Qty: 1 on 02/02/2023 by Abdulkadir Ramos MD at [facility] Left: Hip [employer] 11/25/2030 [id number] / / [id number] Inactivated With No Replacement Liner Acetab 36mm Prime A-Class Group D - [id number] Implanted:Qty: 1 on 02/08/2024 by Abdulkadir Ramos MD at [facility] Right: Hip [employer] 08/31/2031 [id number] NACTIVE / / [id number] Inactivated With No Replacement Stem Hip Sz 6 Profemur Gladiator Classic Std - [id number] Implanted:Qty: 1 on 02/08/2024 by Abdulkadir Ramos MD at [facility] Right: Hip [employer] 06/12/2031 [id number] / / [id number] Procedures Procedure Name Priority Date/Time Associated Diagnosis Comments CT CHEST PE STUDY STAT 04/22/2024 1:18 PM CDT UA W/ SEDIMENT EXAM REFLEXED PER CRITERIA STAT 04/22/2024 12:56 PM CDT CBC WITH AUTO DIFFERENTIAL STAT 04/22/2024 12:14 PM CDT HEPATIC FUNCTION PANEL STAT 04/22/2024 12:14 PM CDT CBC WITH AUTO DIFFERENTIAL STAT 04/22/2024 12:14 PM CDT BASIC METABOLIC PANEL STAT 04/22/2024 12:14 PM CDT D-DIMER,QUANTITATIV E STAT 04/22/2024 11:02 AM CDT Pulmonary embolism and infarction (HC) PLATELET COUNT Timed 03/07/2024 6:52 AM CDT TISSUE CULTURE, STAIN (AEROBIC) Today 03/06/2024 2:15 PM CDT ANAEROBIC CULTURE Today 03/06/2024 2:15 PM CDT TISSUE CULTURE, STAIN (AEROBIC) Today 03/06/2024 2:14 PM CDT ANAEROBIC CULTURE Today 03/06/2024 2:14 PM CDT TISSUE CULTURE, STAIN (AEROBIC) Today 03/06/2024 2:09 PM CDT ANAEROBIC CULTURE Today 03/06/2024 2:09 PM CDT ENDOTRACHEAL TUBE Routine 03/06/2024 2:01 PM CDT ENDOTRACHEAL TUBE Routine 03/06/2024 2:01 PM CDT IRRIGATION DEBRIDEMENT HIP 03/06/2024 1:22 PM CDT right surgical wound infection Case Notes Patient will stay admitted until surgeryLateralPeg Board WHITE BLOOD COUNT [place] 03/04/2024 6:54 AM CDT HEMOGLOBIN [place] 03/04/2024 6:54 AM CDT C-REACTIVE PROTEIN [place] 03/04/2024 6:54 AM CDT PLATELET COUNT Timed 03/04/2024 6:54 AM CDT CREATININE Timed 03/04/2024 6:54 AM CDT C-REACTIVE PROTEIN Timed 03/03/2024 6:15 AM CDT CREATININE Timed 03/03/2024 6:15 AM CDT VANCOMYCIN TROUGH Timed 03/03/2024 6:15 AM CDT CREATININE Timed 03/02/2024 7:02 AM CDT HEMOGLOBIN Early AM 03/02/2024 7:02 AM CDT SODIUM Early AM 03/02/2024 7:02 AM CDT URINALYSIS MICROSCOPIC STAT 03/01/2024 4:20 PM CDT UA W/ SEDIMENT EXAM REFLEXED PER CRITERIA STAT 03/01/2024 4:20 PM CDT XR ASPIRATION HIP JOINT RIGHT STAT 03/01/2024 3:48 PM CDT MISCELLANEOUS SEND OUT Today 03/01/2024 3:22 PM CDT BODY FLUID CULTURE,STAIN (AEROBIC) Today 03/01/2024 3:22 PM CDT BODY FLUID CELL COUNT/DIF Today 03/01/2024 3:22 PM CDT ANAEROBIC CULTURE Today 03/01/2024 3:22 PM CDT XR HIP 1 VIEW W PELVIS RIGHT STAT 03/01/2024 1:54 PM CDT SEDIMENTATION RATE STAT 03/01/2024 1:17 PM CDT CBC W PLT NO DIFF STAT 03/01/2024 1:17 PM CDT BLOOD CULTURE STAT 03/01/2024 1:17 PM CDT C-REACTIVE PROTEIN STAT 03/01/2024 12:30 PM CDT PROTIME-INR STAT 03/01/2024 12:30 PM CDT PROCALCITONIN STAT 03/01/2024 12:30 PM CDT HEPATIC FUNCTION PANEL STAT 03/01/2024 12:30 PM CDT LIPASE STAT 03/01/2024 12:30 PM CDT LACTATE VENOUS STAT 03/01/2024 12:30 PM CDT BLOOD CULTURE STAT 03/01/2024 12:30 PM CDT BASIC METABOLIC PANEL STAT 03/01/2024 12:30 PM CDT EKG 12 LEAD UNIT PERFORMED STAT 03/01/2024 12:13 PM CDT AEROBIC BACTERIAL CULTURE, STAIN STAT 03/01/2024 12:10 PM CDT SCAN-CARDIAC STRIP 03/01/2024 12:00 AM CDT LIPID PANEL W REFLEX MEASURED LDL Routine 08/04/2023 1:40 PM SHANK PIECE TACKER Lipid screening XR MAMMO LEVI BILAT SCREEN Routine 06/06/2023 10:31 AM CDT Visit for screening mammogram ANTI HIV 1/2 Routine 08/16/2022 12:26 PM SHANK PIECE TACKER Encounter for screening for HIV ANTI HCV Routine 08/16/2022 12:26 PM SHANK PIECE TACKER Need for hepatitis C screening test from Last 3 Months or Most Recently Relevant to Health Maintenance Results * CT CHEST PE STUDY (04/22/2024 1:18 PM CDT) Anatomical Region Laterality Modality CHEST, THORAX, HEART Computed To mography 04/22/2024 1:51 PM CDT Impressions 04/22/2024 1:51 PM CDT Limited evaluation secondary to poor contrast bolus. No sign of pulmonary embolism to the level of the distal segmental pulmonary arteries. Evaluation of the subsegmental branches is nondiagnostic secondary to contrast bolus. No focal consolidations. Please note that all CT scans at this facility use dose modulation, iterative reconstruction, and/or weight-based dosing when appropriate to reduce radiation dose to as low as reasonably achievable. Dictated by Dean Cloud MD @ 04/22/2024 1:51:29 PM (Electronically Signed) Narrative 04/22/2024 1:51 PM CDT For Patients: ??As a result of the 21st Century Cures Act, medical imaging exams and procedure reports are released immediately into your electronic medical record. ??You may view this report before your referring provider. ??If you have questions, please contact your health care provider. INDICATION: Positive D-dimer, concern for pulmonary embolism. TECHNIQUE: CT chest PE was acquired with 200 cc Omnipaque 350 IV contrast. COMPARISON: February 12, 2024. FINDINGS: Heart and vasculature: Limited evaluation secondary to poor contrast bolus. No sign of pulmonary embolism to the level of the distal segmental pulmonary arteries. Evaluation of the subsegmental branches is nondiagnostic secondary to contrast bolus. Heart size is normal. Thoracic aorta and pulmonary artery are normal in caliber. Lungs and pleura: No suspicious nodules or infiltrates. ??No pleural effusions, pleural thickening, or pneumothorax. Lymph nodes/mediastinum: No mediastinal, hilar, or axillary adenopathy. Chest wall: No masses. Upper abdomen: No acute or significant findings. Bones: Unremarkable for age. Procedure Note Dean Cloud MD - 04/22/2024 For Patients: As a result of the Century Cures Act, medical imagingexams and procedure reports are released immediately into your electronicmedical record. You may view this report before your referring provider.If you have questions, please contact your health care provider. INDICATION: Positive D-dimer, concern for pulmonary embolism. TECHNIQUE: CT chest PE was acquired with 200 cc Omnipaque 350 IV contrast. COMPARISON: February 12, 2024. FINDINGS: Heart and vasculature: Limited evaluation secondary to poor contrastbolus. No sign of pulmonary embolism to the level of the distal segmentalpulmonary arteries. Evaluation of the subsegmental branches isnondiagnostic secondary to contrast bolus. Heart size is normal. Thoracicaorta and pulmonary artery are normal in caliber. Lungs and pleura: No suspicious nodules or infiltrates. No pleuraleffusions, pleural thickening, or pneumothorax. Lymph nodes/mediastinum: No mediastinal, hilar, or axillary adenopathy. Chest wall: No masses. Upper abdomen: No acute or significant findings. Bones: Unremarkable for age. IMPRESSION: Limited evaluation secondary to poor contrast bolus. No sign of pulmonaryembolism to the level of the distal segmental pulmonary arteries.Evaluation of the subsegmental branches is nondiagnostic secondary tocontrast bolus. No focal consolidations. Please note that all CT scans at this facility use dose modulation,iterative reconstruction, and/or weight-based dosing when appropriate toreduce radiation dose to as low as reasonably achievable. Dictated by Dean Cloud MD @ 04/22/2024 1:51:29 PM (Electronically Signed) Thad NUNEZ CT * (ABNORMAL) UA W/ SEDIMENT EXAM REFLEXED PER CRITERIA (04/22/2024 12:56 PM CDT) Only the most recent of2 resultswithin the time period is included. COLOR Yellow Yellow Color 04/22/2024 1:07 PM [facility] CLARITY Clear Clear Clarity 04/22/2024 1:07 PM [facility] SPECIFIC GRAVITY,URINE >=1.030(A) 1.010, 1.015, 1.020, 1.025 04/22/2024 1:07 PM [facility] PH,URINE 5.5 6.0, 7.0, 8.0, 5.5, 6.5, 7.5, 8.5 04/22/2024 1:07 PM [facility] UROBILINOGEN, QUALITATIVE Normal Normal EU/dl 04/22/2024 1:07 PM [facility] PROTEIN, URINE Negative Negative mg/dL 04/22/2024 1:07 PM [facility] GLUCOSE, URINE Negative Negative mg/dL 04/22/2024 1:07 PM [facility] KETONES,URINE Negative Negative mg/dL 04/22/2024 1:07 PM [facility] BILIRUBIN,URI NE Negative Negative 04/22/2024 1:07 PM [facility] OCCULT BLOOD,URINE Negative Negative 04/22/2024 1:07 PM [facility] NITRITE Negative Negative 04/22/2024 1:07 PM [facility] LEUKOCYTE ESTERASE Negative Negative 04/22/2024 1:07 PM T [facility] Urine URINE SPECIMEN / Unknown Non-Blood / Unknown 04/22/2024 12:56 PM CDT 04/22/2024 12:57 PM CDT Thad NUNEZ URINE [facility] [address] [place] [address] * (ABNORMAL) CBC WITH AUTO DIFFERENTIAL (04/22/2024 12:14 PM CDT) [facility] WHITE BLOOD COUNT 5.9 4.5 - 11.0 thou/cu mm 04/22/2024 12:54 PM [facility] RED BLOOD COUNT 3.99(L) 4.00 - 5.20 mil/cu mm 04/22/2024 12:54 PM [facility] HEMOGLOBIN 12.1 12.0 - 16.0 g/dL 04/22/2024 12:54 PM [facility] HEMATOCRIT 37.9 33.0 - 51.0 % 04/22/2024 12:54 PM [facility] MCV 95 80 - 100 fL 04/22/2024 12:54 PM [facility] MCH 30.3 26.0 - 34.0 pg 04/22/2024 12:54 PM [facility] MCHC 31.9(L) 32.0 - 36.0 g/dL 04/22/2024 12:54 PM [facility] RDW 12.3 11.5 - 15.5 % 04/22/2024 12:54 PM [facility] PLATELET COUNT 224 140 - 440 thou/cu mm 04/22/2024 12:54 PM [facility] MPV 10.0 6.5 - 11.0 fL 04/22/2024 12:54 PM [facility] % NEUT 41.9 % 04/22/2024 12:54 PM [facility] % LYMPH 50.5 % 04/22/2024 12:54 PM [facility] % MONO 5.7 % 04/22/2024 12:54 PM [facility] % EOS 1.7 % 04/22/2024 12:54 PM [facility] % BASO 0.2 % 04/22/2024 12:54 PM [facility] ABSOLUTE NEUTROPHILS 2.5 1.7 - 7.0 thou/cu mm 04/22/2024 12:54 PM [facility] ABSOLUTE LYMPHOCYTES 3.0(H) 0.9 - 2.9 thou/cu mm 04/22/2024 12:54 PM CDT [facility] ABSOLUTE MONOCYTES 0.3 <0.9 thou/cu mm 04/22/2024 12:54 PM CDT [facility] ABSOLUTE EOSINOPHILS 0.1 <0.5 thou/cu mm 04/22/2024 12:54 PM T [facility] ABSOLUTE BASOPHILS 0.0 <0.3 thou/cu mm 04/22/2024 12:54 PM T [facility] Blood BLOOD SPECIMEN / Unknown IV Start / Unknown 04/22/2024 12:14 PM CDT 04/22/2024 12:18 PM CDT Thad NUNEZ HEMATOLOGY [facility] [address] [place] [address] * (ABNORMAL) HEPATIC FUNCTION PANEL (04/22/2024 12:14 PM CDT) Only the most recent of2 resultswithin the time period is included. ALBUMIN 4.2 4.0 - 4.9 g/dL 04/22/2024 12:39 PM [facility] PROTEIN,TOTAL 7.5 6.0 - 8.0 g/dL 04/22/2024 12:39 PM [facility] BILIRUBIN,TOTAL 0.3 0.0 - 1.2 mg/dL 04/22/2024 12:39 PM [facility] LABORATORY BILIRUBIN,DIRECT 0.1 0.0 - 0.2 mg/dL 04/22/2024 12:39 PM [facility] BILIRUBIN,INDIRE CT 04/22/2024 12:39 PM [facility] Comment:Unable to calculate, Direct Bili <0.2 ALK PHOSPHATASE 109(H) 35 - 104 IU/L 04/22/2024 12:39 PM [facility] ALT (SGPT) 8(L) 10 - 35 IU/L 04/22/2024 12:39 PM [facility] AST (SGOT) 19 10 - 35 IU/L 04/22/2024 12:39 PM [facility] Blood BLOOD SPECIMEN / Unknown IV Start / Unknown 04/22/2024 12:14 PM CDT 04/22/2024 12:18 PM CDT Thad NUNEZ CHEMISTRY [facility] [address] [place] [address] * (ABNORMAL) BASIC METABOLIC PANEL (04/22/2024 12:14 PM CDT) Only the most recent of2 resultswithin the time period is included. SODIUM 141 136 - 145 mmol/L 04/22/2024 12:39 PM [facility] POTASSIUM 4.0 3.5 - 5.1 mmol/L 04/22/2024 12:39 PM [facility] CHLORIDE 106 98 - 107 mmol/L 04/22/2024 12:39 PM [facility] CO2,TOTAL 24 22 - 29 mmol/L 04/22/2024 12:39 PM [facility] ANION GAP 11 5 - 18 04/22/2024 12:39 PM [facility] GLUCOSE 87 70 - 99 mg/dL 04/22/2024 12:39 PM [facility] CALCIUM 9.4 8.6 - 10.0 mg/dL 04/22/2024 12:39 PM [facility] BUN 10 6 - 20 mg/dL 04/22/2024 12:39 PM [facility] CREATININE 0.86 0.50 - 0.90 mg/dL 04/22/2024 12:39 PM [facility] BUN/CREAT RATIO 12 10 - 20 12:39 PM [facility] eGFR 78(L) >90 mL/min/1.7 3m2 04/22/2024 12:39 PM [facility] Comment:As of 2021, eG FR is calculated by the CKD-EPI creatinine equation without race adjustment. ??eGFR can be influenced by muscle mass, exercise, and diet. ??The reported eGFR is an estimation only and is only applicable if the renal function is stable. Blood BLOOD SPECIMEN / Unknown IV Start / Unknown 04/22/2024 12:14 PM CDT 04/22/2024 12:18 PM CDT Thad NUNEZ CHEMISTRY Performing Organization Address City/[facility]/ZIP Co de Phone Number [facility] [address] [place] [address] * (ABNORMAL) D-DIMER,QUANTITATIVE (04/22/2024 11:02 AM CDT) [facility] D-DIMER,QUANTI TATIVE 0.60 See comment FEU mcg/mL 04/22/2024 11:16 AM CDT [facility] D-DIMER INTERP Abnormal( A) 04/22/2024 11:16 AM CDT [facility] Blood BLOOD SPECIMEN / Unknown Butterfly / Unknown 04/22/2024 11:02 AM CDT 04/22/2024 11:04 AM CDT Narrative [facility] - 04/22/2024 11:16 AM CDT The cut off value for exclusion of Deep Vein Thrombosis and / or Pulmonary Embolism is 0.50 FEU mcg/mL For patients greater than 50 years of age the upper limit is age dependent and was calculated with the formula: ?? (PATIENT AGE x 0.01) FEU mcg/mL = Upper limit of normal range Romana Lan MD HEMATOLOGY Performing Organization Address [place] [facility] Co de Phone Number [facility] [address] [place] [address] * PLATELET COUNT (03/07/2024 6:52 AM CDT) Only the most recent of2 resultswithin the time period is included. Pathologist [facility] PLATELET COUNT 289 140 - 440 thou/cu mm 03/07/2024 6:58 AM CDT [facility] MPV 8.9 6.5 - 11.0 fL 03/07/2024 6:58 AM CDT [facility] Blood BLOOD SPECIMEN / Unknown Venipuncture / Unknown 03/07/2024 6:52 AM CDT 03/07/2024 6:55 AM CDT Jani Natarajan DO HEMATOLOGY Performing Organization Address City/[facility]/ZIP Co de Phone Number [address] [address] * TISSUE CULTURE, STAIN (AEROBIC) (03/06/2024 2:15 PM CDT) Only the most recent of3 resultswithin the time period is included. CULTURE No Growth. 03/11/2024 8:03 AM CDT [facility] GRAM STAIN 4+ PMNs 03/11/2024 8:03 AM CDT [facility] GRAM STAIN 4+ RBCs 03/11/2024 8:03 AM CDT [facility] GRAM STAIN No organisms seen 03/11/2024 8:03 AM CDT [facility] GRAM STAIN Gram stain performed by [place], [place] 03/11/2024 8:03 AM CDT [facility] Tissue TISSUE SPECIMEN / Unknown Non-Blood / Unknown 03/06/2024 2:15 PM CDT 03/06/2024 2:41 PM CDT Abdulkadir Ramos MD MICROBIOLOGY [facility] [address] [place] [address], [address] [address] * ANAEROBIC CULTURE (03/06/2024 2:15 PM CDT) Only the most recent of4 resultswithin the time period is included. CULTURE No anaerobes isolated 03/21/2024 2:19 PM CDT [facility] Tissue TISSUE SPECIMEN / Unknown Non-Blood / Unknown 03/06/2024 2:15 PM CDT 03/06/2024 2:41 PM CDT Abdulkadir Ramos MD MICROBIOLOGY [facility] [address] [place] [address], [place] * HCHG TUBE PR1, HCHG STYLET PR1 (03/06/2024 2:01 PM CDT) Narrative Korina Paul CRNA - 03/06/2024 2:01 PM CDT Korina Paul CRNA ? 03/06/2024 ??2:06 PM Procedure: ETT Patient location during procedure: OR ETT Properties Mask Ventilation: easy Final Technique: direct laryngoscopy Type: straight Location: oral Cuffed: yes Tube Size: 7.0 mm Stylet: yes Laryngoscope Blade: Santos Blade Size: 2 Cormack-Lehane Grade View: 1 Insertion Attempts: 1 Placement Verification: auscultation, end tidal CO2 and symmetrical chest wall movement Assessment: pharynx clear, atraumatic and dentition unchanged Secured at: 22 Measured From: lips Difficulty: 0 (not difficult) Korina Paul STOCK SAW OPERATOR ANESTHESIA PX NOTE O RDERABLES * (ABNORMAL) WHITE BLOOD COUNT (03/04/2024 6:54 AM CDT) WHITE BLOOD COUNT 4.3(L) 4.5 - 11.0 thou/cu mm 03/04/2024 9:27 AM CDT [facility] NRBC 0.0 % 03/04/2024 9:27 AM CDT [facility] ABS NRBC 0.0 thou /cu mm 03/04/2024 9:27 AM CDT [facility] Blood BLOOD SPECIMEN / Unknown Butterfly / Unknown 03/04/2024 6:54 AM CDT 03/04/2024 7:02 AM CDT Sagrario NUNEZ HEMATOLOGY [place] [id number] [place] [address] * (ABNORMAL) HEMOGLOBIN (03/04/2024 6:54 AM CDT) Only the most recent of2 resultswithin the time period is included. HEMOGLOBIN 10.7(L) 12.0 - 16.0 g/dL 03/04/2024 9:27 AM CDT [facility] MCV 101(H) 80 - 100 fL 03/04/2024 9:27 AM CDT [facility] Blood BLOOD SPECIMEN / Unknown Butterfly / Unknown 03/04/2024 6:54 AM CDT 03/04/2024 7:02 AM CDT Sagrario NUNEZ HEMATOLOGY Performing Organization Address [facility] Co de Phone Number [address] [address] * (ABNORMAL) CREATININE (03/04/2024 6:54 AM CDT) Only the most recent of3 resultswithin the time period is included. Pathologist [facility] eGFR 84(L) >90 mL/min/1.7 3m2 03/04/2024 7:25 AM CDT [facility] Comment:As of 2021, eG FR is calculated by the CKD-EPI creatinine equation without race adjustment. ??eGFR can be influenced by muscle mass, exercise, and diet. ??The reported eGFR is an estimation only and is only applicable if the renal function is stable. CREATININE 0.81 0.50 - 0.90 mg/dL 03/04/2024 7:25 AM CDT [facility] Blood BLOOD SPECIMEN / Unknown Butterfly / Unknown 03/04/2024 6:54 AM CDT 03/04/2024 7:02 AM CDT Bob Hernandez MD CHEMISTRY Performing Organization Address City/[facility]/ZIP Co de Phone Number [address] [address] * (ABNORMAL) C-REACTIVE PROTEIN (03/04/2024 6:54 AM CDT) Only the most recent of3 resultswithin the time period is included. C-REACTIVE PROTEIN 7.5(H) <0.5 mg/dL 03/04/2024 10:05 AM CDT [facility] Blood BLOOD SPECIMEN / Unknown Butterfly / Unknown 03/04/2024 6:54 AM CDT 03/04/2024 7:02 AM CDT Sagrario NUNEZ CHEMISTRY Performing Organization Address [facility] de Phone Number [address] [address] * VANCOMYCIN TROUGH (03/03/2024 6:15 AM CDT) VANCOMYCIN,TRO UGH 11.1 7.0 - 20.0 ug/mL 03/03/2024 7:20 AM CDT [facility] DATE OF LAST DOSE,TROUGH Not Given 03/03/2024 7:20 AM CDT [facility] TIME OF LAST DOSE,TROUGH Not Given 03/03/2024 7:20 AM CDT [facility] Blood BLOOD SPECIMEN / Unknown Butterfly / Unknown 03/03/2024 6:15 AM CDT 03/03/2024 6:57 AM CDT Bob Hernandez MD CHEMISTRY Performing Organization Address [facility] de Phone Number [address] [address] * SODIUM (03/02/2024 7:02 AM CDT) SODIUM 137 136 - 145 mmol/L 03/02/2024 7:30 AM CDT [facility] Blood BLOOD SPECIMEN / Unknown Butterfly / Unknown 03/02/2024 7:02 AM CDT 03/02/2024 7:11 AM CDT Craig Elizabeth NP CHEMISTRY Performing Organization Address [facility] Co de Phone Number [address] [address] * (ABNORMAL) URINALYSIS MICROSCOPIC (03/01/2024 4:20 PM CDT) RBC 0-2 0-2, None Seen /HPF 03/01/2024 4:36 PM CDT [facility] WBC 0-2 0-2, 3-5, None Seen /HPF 03/01/2024 4:36 PM CDT [facility] BACTERIA Moderate(A) None Seen, Rare, Few Bacteria/ HPF 03/01/2024 4:36 PM CDT [facility] EPITHELIAL CELLS Few None Seen, Few Epi/HPF 03/01/2024 4:36 PM CDT [facility] Mucus Present 03/01/2024 4:36 PM CDT [facility] Urine URINE SPECIMEN / Unknown Non-Blood / Unknown 03/01/2024 4:20 PM CDT 03/01/2024 4:27 PM CDT Braydon Villanueva MD URINE Performing Organization Address City/State/[facility] [place] [address] * XR ASPIRATION HIP JOINT RIGHT (03/01/2024 3:48 PM CDT) Anatomical Region Laterality Modality HIPR Digital Radiogra phy, Computed Tomography 03/01/2024 4:00 PM CDT Narrative 03/01/2024 4:00 PM CDT For Patients: ??As a result of the Cures Act, medical imaging exams and procedure reports are released immediately into your electronic medical record. ??You may view this report before your referring provider. ??If you have questions, please contact your health care provider. Indication: Recent right total hip arthroplasty with swelling and drainage. Technique: Fluoroscopically guided right hip aspiration. Comparison: Plain-film radiography performed earlier today. Findings: After informed consent was obtained from the patient a formal time-out was performed. An appropriate sites in the ventral right hip was prepped with DuraPrep antiseptic and allowed to dry. Using 1 percent local lidocaine anesthesia, sterile technique and intermittent fluoroscopic guidance a 5 inch 22 gauge spinal needle was advanced into the ventral right hip with the tip of the needle identified near the articulation of the acetabular and femoral components. Subsequently 15 cc of red tinged fluid was aspirated. This fluid was sent for requested laboratory analysis. The needle was removed and hemostasis was obtained at the skin puncture site. The patient tolerated the procedure well with no immediate complications or complaints. Laboratory assessment is pending at this time. Impression: Successful uneventful fluoroscopically guided right hip aspiration with 15 cc of fluid collected for requested laboratory analysis. Dictated by Neel Villegas MD @ 03/01/2024 4:00:23 PM (Electronically Signed) Procedure Note Neel Villegas MD - 03/01/2024 For Patients: As a result of the Cures Act, medical imagingexams and procedure reports are released immediately into your electronicmedical record. You may view this report before your referring provider.If you have questions, please contact your health care provider. Indication: Recent right total hip arthroplasty with swelling and drainage. Technique: Fluoroscopically guided right hip aspiration. Comparison: Plain-film radiography performed earlier today. Findings: After informed consent was obtained from the patient a formal time-out wasperformed. An appropriate sites in the ventral right hip was prepped withDuraPrep antiseptic and allowed to dry. Using 1 percent local lidocaineanesthesia, sterile technique and intermittent fluoroscopic guidance a 5inch 22 gauge spinal needle was advanced into the ventral right hip withthe tip of the needle identified near the articulation of the acetabularand femoral components. Subsequently 15 cc of red tinged fluid wasaspirated. This fluid was sent for requested laboratory analysis. Theneedle was removed and hemostasis was obtained at the skin puncture site.The patient tolerated the procedure well with no immediate complicationsor complaints. Laboratory assessment is pending at this time. Impression: Successful uneventful fluoroscopically guided right hip aspiration with 15cc of fluid collected for requested laboratory analysis. Dictated by Neel Villegas MD @ 03/01/2024 4:00:23 PM (Electronically Signed) Sagrario NUNEZ FLUOROSCOPY * MISCELLANEOUS SEND OUT (03/01/2024 3:22 PM CDT) TEST NAME Alpha defensin, lateral flow assay, synovial fluid 03/04/2024 9:53 AM CDT [facility] SOURCE Interarticular right hip joint aspiration. 03/04/2024 9:53 AM CDT [facility] PERFORMING LAB [place] 03/04/2024 9:53 AM CDT [facility] REFERRAL LAB TEST # ALDEF 03/04/2024 9:53 AM CDT [facility] IS THIS A [facility] TEST? No 03/04/2024 9:53 AM CDT [facility] Other SYNOVIAL FLUID SPECIMEN / Unknown Non-Blood / Unknown 03/01/2024 3:22 PM CDT 03/01/2024 3:36 PM CDT Narrative MISCE[facility]OUS SEND OUT LAB - 03/04/2024 9:53 AM CDT See Separate Report Sagrario NUNEZ SEND OUTS Performing Organization Address City/[facility]/ZIP Co de Phone Number MISCELLANEOUS SEND OUT LAB [facility] [address] [place] [address], * BODY FLUID CULTURE,STAIN (AEROBIC) (03/01/2024 3:22 PM CDT) CULTURE No Growth. 03/06/2024 8:31 AM CDT [facility] GRAM STAIN 1+ PMNs 03/06/2024 8:31 AM CDT [facility] GRAM STAIN 1+ Epithelial cells 03/06/2024 8:31 AM CDT [facility] GRAM STAIN 1+ RBCs 03/06/2024 8:31 AM CDT [facility] GRAM STAIN No organisms seen 03/06/2024 8:31 AM CDT [facility] GRAM STAIN Gram stain performed by [facility] [place], [place] 03/06/2024 8:31 AM CDT [facility] Body Fluid SYNOVIAL FLUID SPECIMEN / Unknown Non-Blood / Unknown 03/01/2024 3:22 PM CDT 03/01/2024 3:36 PM CDT Sagrario NUNEZ MICROBIOLOGY [facility] [address] [place] [address], [address] [address] * BODY FLUID CELL COUNT/DIF (03/01/2024 3:22 PM CDT) BODY FLUID SOURCE Synovial Fluid 03/01/2024 4:25 PM CDT [facility] BODY FLUID COLOR Grossly Bloody 03/01/2024 4:25 PM CDT [facility] BODY FLUID CLARITY Cloudy 03/01/2024 4:25 PM CDT [facility] TOTAL NUCLEATED CELLS, BF 2,351 /cu mm 03/01/2024 4:25 PM CDT [facility] RED BLOOD COUNT, BODY FLUID 34,000 /cu mm 03/01/2024 4:25 PM CDT [facility] % NEUTROPHILS, BODY FLUID 69 % 03/01/2024 4:25 PM CDT [facility] % LYMPHOCYTES, BODY FLUID 11 % 03/01/2024 4:25 PM CDT [facility] % MONO/MACRO, BODY FLUID 20 % 03/01/2024 4:25 PM CDT [facility] Body Fluid SYNOVIAL FLUID SPECIMEN / Unknown Non-Blood / Unknown 03/01/2024 3:22 PM CDT 03/01/2024 3:36 PM CDT Narrative [facility] - 03/01/2024 4:25 PM CDT TO ORDER BODY FLUID CULTURES, USE; [id number] BODY FLUID CULTURE, STAIN Sagrario NUNEZ BODY FLUID Performing Organization Address [facility] Co de Phone Number [address] [address] * XR HIP 1 VIEW W PELVIS RIGHT (03/01/2024 1:54 PM CDT) Anatomical Region Laterality Modality HIPS, HIPR, Pelvis Digital Radio graphy 03/01/2024 2:04 PM CDT Narrative 03/01/2024 2:04 PM CDT For Patients: ??As a result of the Cures Act, medical imaging exams and procedure reports are released immediately into your electronic medical record. ??You may view this report before your referring provider. ??If you have questions, please contact your health care provider. Indication: Recent surgery, concern for infection. Technique: Two AP views of the pelvis and a frogleg view of the right hip. Comparison: CT 02/12/2024, radiographs 02/10/2024. 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 Hardware is intact. No new periprosthetic lucency or fracture. Similar mild degenerative changes of the sacroiliac joints and pubic symphysis. Moderate lower lumbar degenerative disc disease. Impression: Unchanged appearance of bilateral hip prostheses. No radiographic evidence of hardware complication. Dictated by Natalie Terrazas MD @ 03/01/2024 2:04:51 PM (Electronically Signed) Procedure Note Natalie Terrazas, DO - 03/01/2024 For Patients: As a result of the Cures Act, medical imagingexams and procedure reports are released immediately into your electronicmedical record. You may view this report before your referring provider.If you have questions, please contact your health care provider. Indication: Recent surgery, concern for infection. Technique: Two AP views of the pelvis and a frogleg view of the right hip. Comparison: CT 02/12/2024, radiographs 02/10/2024. 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 Hardware isintact. No new periprosthetic lucency or fracture. Similar milddegenerative changes of the sacroiliac joints and pubic symphysis.Moderate lower lumbar degenerative disc disease. Impression: Unchanged appearance of bilateral hip prostheses. No radiographic evidenceof hardware complication. Dictated by Natalie Terrazas MD @ 03/01/2024 2:04:51 PM (Electronically Signed) Braydon Villanueva MD GENERAL IMAGING * (ABNORMAL) SEDIMENTATION RATE (03/01/2024 1:17 PM CDT) SEDIMENTATION RATE 60(H) <30 mm/hr 2023 1:[address] [facility] Blood BLOOD SPECIMEN / Unknown Butterfly / Unknown 03/01/2024 1:17 PM CDT 03/01/2024 1:24 PM CDT Braydon Villanueva MD HEMATOLOGY Performing Organization Address [facility] Co de Phone Number [address] [address] * BLOOD CULTURE (03/01/2024 1:17 PM CDT) Only the most recent of2 resultswithin the time period is included. CULTURE No Growth. 03/06/2024 2:33 PM CDT [facility] Blood BLOOD SPECIMEN / Unknown Butterfly / Unknown 03/01/2024 1:17 PM CDT 03/01/2024 1:24 PM CDT Narrative [facility] - 03/06/2024 2:33 PM CDT Low volume blood culture received; possible false negative culture. Braydon Villanueva MD MICROBIOLOGY Performing Organization Address [facility] Co de Phone Number [address] [address] * (ABNORMAL) CBC W PLT NO DIFF (03/01/2024 1:17 PM CDT) WHITE BLOOD COUNT 6.3 4.5 - 11.0 thou/cu mm 03/01/2024 1:29 PM CDT [facility] RED BLOOD COUNT 3.30(L) 4.00 - 5.20 mil/cu mm 03/01/2024 1:29 PM CDT [facility] HEMOGLOBIN 10.7(L) 12.0 - 16.0 g/dL 03/01/2024 1:29 PM CDT [facility] HEMATOCRIT 32.9(L) 33.0 - 51.0 % 03/01/2024 1:29 PM CDT [facility] MCV 100 80 - 100 fL 03/01/2024 1:29 PM CDT [facility] MCH 32.4 26.0 - 34.0 pg 03/01/2024 1:29 PM CDT [facility] MCHC 32.5 32.0 - 36.0 g/dL 03/01/2024 1:29 PM CDT [facility] RDW 12.6 11.5 - 15.5 % 03/01/2024 1:29 PM CDT [facility] PLATELET COUNT 190 140 - 440 thou/cu mm 03/01/2024 1:29 PM CDT [facility] MPV 9.4 6.5 - 11.0 fL 03/01/2024 1:29 PM CDT [facility] NRBC 0.0 % 03/01/2024 1:29 PM CDT [facility] ABS NRBC 0.0 thou /cu mm 03/01/2024 1:29 PM CDT [facility] Blood BLOOD SPECIMEN / Unknown Butterfly / Unknown 03/01/2024 1:17 PM CDT 03/01/2024 1:24 PM CDT Braydon Villanueva MD HEMATOLOGY Performing Organization Address City/[facility]/ZIP Co de Phone Number [address] [address] * LACTATE VENOUS (03/01/2024 12:30 PM CDT) LACTATE,VENOUS 1.3 0.5 - 2.0 mmol/L 03/01/2024 1:16 PM CDT [facility] Blood BLOOD SPECIMEN / Unknown IV Start / Unknown 03/01/2024 12:30 PM CDT 03/01/2024 12:54 PM CDT Braydon Villanueva MD CHEMISTRY Performing Organization Address City/[facility]/ZIP Co de Phone Number [address] [address] * PROCALCITONIN (03/01/2024 12:30 PM CDT) PROCALCITONIN 0.05 ng/ml 03/01/2024 1:29 PM CDT [facility] Blood BLOOD SPECIMEN / Unknown IV Start / Unknown 03/01/2024 12:30 PM CDT 03/01/2024 12:54 PM CDT [facility] - 03/01/2024 1:29 PM CDT Procalcitonin for initial assessment of Lower Respiratory Tract Infection: Results Interpretation <0.10 ng/mL Antibiotic therapy strongly discoraged. ??Indicates absent of bacterial infection. * 0.10 - 0.25 ng/mL Antibiotic therapy discouraged. ??Bacterial infection unlikely. * 0.26 - 0.50 ng/mL Antibiotic therapy encouraged. ??Bacterial infection possible. >0.50 ng/mL Antibiotic therapy strongly encouraged. ??Suggestive of presence of bacterial infection. *Antibiotic therapy should be considered regardless of PCT result if the patient is clinically unstable, is at high risk for adverse outcome, has strong evidence of bacterial pathogen, or the clinical context indicates antibiotic therapy is warranted. ??If antibiotics are withheld, reassess if symptoms persist/worsen and/or repeat PCT measurement within 6-24 hours. ? In order to assess treatment success and to support a decision to discontinue antibiotic therapy, follow up samples should be tested once every 1-2 days, based upon physician discretion taking into account patient's evolution and progress. Procalcitonin for initial assessment of severe sepsis risk: Results Interpretation <0.5 ng/ml A PCT level below 0.5 ng/ml on the first day of ICU admission is associated with a low risk for progression to severe sepsis and/or septic shock. > 2.0 ng/mL A PCT level above 2.0 ng/mL on the first day of ICU admission is associated with a high risk for progression to severe sepsis and/or septic shock. Note: Concentrations < 0.5 ng/mL do not exclude an infection, on account of localized infections (without systemic signs) which can be associated with such low concentrations, or a systemic infection in its initial stages(< 6 hours). Furthermore, increased procalcitonin can occur without infection. PCT concentrations between 0.5 and 2.0 ng/mL should be interpreted taking into account the patient's history. It is recommended to retest PCT within 6-24 hours if any concentrations < 2 ng/mL are obtained. Braydon Villanueva MD SEND OUTS Performing Organization Address [facility] Co de Phone Number [address] [address] * (ABNORMAL) PROTIME-INR (03/01/2024 12:30 PM CDT) INR 1.5(H) <1.3 03/01/2024 1:08 PM CDT [facility] PROTIME 16.4(H) 10.3 - 12.3 sec 03/01/2024 1:08 PM CDT [facility] Blood BLOOD SPECIMEN / Unknown IV Start / Unknown 03/01/2024 12:30 PM CDT 03/01/2024 12:54 PM CDT Narrative [facility] - 03/01/2024 1:08 PM CDT ?Therapeutic Range 2.0-3.0 for most anticoagulated patients 2.5-3.5 or 4.0 for high risk patients The INR is only used for patients on stable oral anticoagulant therapy. It makes no significant contribution to the diagnosis or treatment of patients whose Protime is prolonged for other reasons. INR results are increased when heparin levels exceed 1.0 U/mL, which corresponds to an aPTT >125 seconds if the patient is on UFH. Braydon Villauneva MD HEMATOLOGY Performing Organization Address [facility] de Phone Number [address] [address] * LIPASE (03/01/2024 12:30 PM CDT) LIPASE 21.2 13.0 - 60.0 IU/L 03/01/2024 1:20 PM CDT [facility] Blood BLOOD SPECIMEN / Unknown IV Start / Unknown 03/01/2024 12:30 PM CDT 03/01/2024 12:54 PM CDT Braydon Villanueva MD CHEMISTRY Performing Organization Address [facility] Co de Phone Number [address] [place] [address] * EKG 12 LEAD UNIT PERFORMED (03/01/2024 12:13 PM CDT) Interpretation Normal sinus rhythm Normal ECG BEYOND NOW Ventricular Rate 78 BPM BEYOND NOW Atrial Rate 78 BPM BEYOND NOW P-R Interval 160 ms BEYOND NOW QRS Duration 88 ms BEYOND NOW QT 376 ms BEYOND NOW QTc 428 ms BEYOND NOW P [place] 36 degrees BEYOND NOW R [place] -11 degrees BEYOND NOW T [place] 31 degrees BEYOND NOW 03/01/2024 12:1 3 PM CDT 03/04/2024 4:25 PM CDT Braydon Villanueva MD EKG ORD Performing Organization Address [facility] Co de Phone Number BEYOND NOW [place], [place] * AEROBIC BACTERIAL CULTURE, STAIN (03/01/2024 12:10 PM CDT) CULTURE No Growth. 03/04/2024 10:10 AM CDT [facility] GRAM STAIN 2+ PMNs 03/04/2024 10:10 AM CDT [facility] GRAM STAIN 1+ Epithelial cells 03/04/2024 10:10 AM CDT [facility] GRAM STAIN 1+ RBCs 03/04/2024 10:10 AM CDT [facility] GRAM STAIN No organisms seen 03/04/2024 10:10 AM CDT [facility] GRAM STAIN Gram stain performed by [facility], [place], [place] 03/04/2024 10:10 AM CDT [facility] Other (Other) Non-Blood / Unknown 03/01/2024 12:10 PM CDT 03/01/2024 12:54 PM CDT Braydon Villanueva MD MICROBIOLOGY Performing Organization Address City/[facility]/ZIP Co de Phone Number [facility] [address] [place] [address], [address] [address] * SCAN-CARDIAC STRIP (03/01/2024 12:00 AM CDT) Narrative 03/01/2024 12:00 AM CDT Ordered by an unspecified provider. Other Clinical Staff OTHER * (ABNORMAL) LIPID PANEL W REFLEX MEASURED LDL (08/04/2023 1:40 PM SHANK PIECE TACKER) CHOLESTEROL,TOTAL 256(H) 100 - 199 mg/dL 08/04/2023 9:40 PM [employer]ANK PIECE T[employer] [facility] Comment: Cholesterol, Total Reference Ranges Desirable <200 mg/dL Borderline 200-239 mg/dL High >=240 mg/dL TRIGLYCERIDES 104 <150 mg/dL 08/04/2023 9:40 PM [employer]IECE [employer] [facility] HDL CHOLESTEROL 53 >40 mg/dL 9:40 PM [employer] [facility] NON-HDL CHOLESTEROL 203(H) <145 mg/dl 08/04/2023 9:40 PM [employer]IECE T[employer] [facility] CHOL/HDL RATIO 4.83(H) <4.50 08/04/2023 9:40 PM [employer]IECE T[employer] [facility] LDL CHOLESTEROL 182(H) <=130 mg/dL 08/04/2023 9:40 PM [employer] PIECE T[employer] [facility] VLDL CHOLESTEROL 21 <=30 mg/dL 08/04/2023 9:40 PM [employer]CE [employer] [facility] PROVIDER ORDERED STATUS RANDOM 08/04/2023 9:40 PM [employer]IECE [employer] [facility] Blood BLOOD SPECIMEN / Unknown Venipuncture / Unknown 08/04/2023 1:40 PM [employer]ANK PIECE TACKER 08/04/2023 1:42 PM [employer] PIECE T[employer]ER Kathy Lester DO CHEMISTRY [facility] [address] [place] [address], * XR MAMMO LEVI BILAT SCREEN (06/06/2023 10:31 AM CDT) Anatomical Region Laterality Modality BREASTS, Breast Left, Breast Right Bilateral Mammography Impressions 06/07/2023 3:12 PM CDT ??There is no radiographic evidence for malignancy. ??Recommend annual mammograms. MAMMOGRAM ASSESSMENT: ??ACR 1 Negative PATIENTS: You will also receive a letter with your examination results in an easy to read format. ??If you have questions about your results, please contact your referring provider. Narrative 06/07/2023 3:12 PM CDT For Patients: As a result of the Cures Act, medical imaging exams and procedure reports are released immediately into your electronic medical record. You may view this report before your referring provider. If you have questions, please contact your health care provider. XR MAMMO LEVI BILAT SCREEN [[id number]] CLINICAL HISTORY: ??This is an asymptomatic 58 y.o. patient. INDICATION FOR EXAM: Mammogram Screening. TECHNIQUE: CC & MLO views were obtained. ??This study was evaluated with the assistance of Computer-Aided Detection. Breast Tomosynthesis was used in interpretation. COMPARISON FILM: Yes [facility] FINDINGS: ??The breasts have scattered areas of fibroglandular density. There are no dominant masses, suspicious micro calcifications or areas of architectural distortion. Adei Sumitorenra DO MAMMO * ANTI HCV (08/16/2022 12:26 PM SHANK PIECE TACKER) Pathologist [facility] HEPATITIS C ANTIBODY Non-React katia Non-React katia 08/18/2022 11:37 AM SHANK PIECE TACKER [facility] Comment:Antibodies to HCV no t detected; does not exclude the possibility of exposure to HCV. Blood BLOOD SPECIMEN / Unknown Venipuncture / Unknown 08/16/2022 12:26 PM [employer]ANK PIECE TACKER 08/16/2022 12:28 PM SHANK PIECE TACKER Bridgett NUNEZ [facility]END [facility] [address] [place] [address], * ANTI HIV 1/2 (08/16/2022 12:26 PM SHANK PIECE TACKER) Pathologist [facility] HIV-1/HIV-2 ANTIBODY Non-Reacti ve Non-Reacti ve 08/18/2022 11:37 AM SHANK PIECE TACKER [facility] Comment:HIV-1 p24 and HIV-1/ HIV-2 Ab not detected. Blood BLOOD SPECIMEN / Unknown Venipuncture / Unknown 08/16/2022 12:26 PM SHANK PIECE TACKER 08/16/2022 12:28 PM SHANK PIECE TACKER Bridgett NUNEZ SEND OUTS [facility] [address] [place] [address], from Last 3 Months or Most Recently Relevant to Health Maintenance Advance Directives * Full Code (Latest Code Status on File) Date Activated Date Inactivated Comments 03/01/2024 4:04 PM 03/08/2024 5:00 PM Question Answer Comments Code Status Discussion: Reviewed Preferences * Full Code Date Activated Date Inactivated Comments 02/10/2024 3:36 PM 02/13/2024 2:30 PM Question Answer Comments Code Status Discussion: Reviewed Preferences * Full Code Date Activated Date Inactivated Comments 02/08/2024 9:24 AM 02/09/2024 6:10 PM Question Answer Comments Code Status Discussion: Not Discussed * Full Code Date Activated Date Inactivated Comments 02/02/2023 6:22 AM 02/08/2023 6:06 PM Question Answer Comments Code Status Discussion: Not Discussed Care Teams [employer] Relationship Specialty Start Date End Date Kathy [place] [address] [place] [address] PCP - General Family Practice 01/16/23
--- OUTSIDE RECORDS SUMMARY | 2024-05-20 15:51 | XMS_ITS | Clinical Summary ---
Author Organization Formerly [facility] Address [address] [place] [address] Care Team Providers Care Senior Financial Reporting Analyst Name Role Phone Needs Pcp, Assignment Primary Care Provider +1 [phone] Source Comments You are receiving this document as you are listed as the primary care provider,follow-up provider, or the patient has been referred to you for consultation.This is in compliance with the Medicare and[facility] Cent[facility] EHR Incentive Program,which states Providers who transition their patient to another setting of careor provider of care or refers their patient to another provider of care shouldprovide summary care record for each transition of care or referral. OncoEthix Allergies Active Allergy Reactions Criticality Noted Date Comments Citalopram Other, see comments 01/27/2011 increase of anxiety symptoms Other Anxiety 12/09/2016 [place] v[place] Rosuvastatin Gastrointestinal 04/19/2023 Sulfa Antibiotics Nausea And Vomiting,Rash 04/28 Cetirizine Other, see comments 11/04/2018 Sleepiness Medications Medication Sig Dispensed Refills Start Date End Date Status rivaroxaban (XARELTO) 10 MG tablet Take 1 Tablet (10 mg) by mouth every evening with a meal. 90 Tablet 12/21/2021 Active esomeprazole (NEXIUM) 20 MG capsuleIndications:G astroesophageal reflux disease, unspecified whether esophagitis present Take 1 Capsule (20 mg) by mouth daily. 90 Capsule 3 05/10/2022 Active ALBUterol sulfate HFA 108 (90 Base) MCG/ACT inhaler Inhale. 12/12/2022 Active cholecalciferol (VITAMIND3) 25 MCG (1000 UT) capsule Take 1 Capsule (1,000 Units) by mouth. 08/18/2022 Active Fluocinolone Acetonide Scalp 0.01 % OIL Apply topically. 12/13/2022 Active clindamycin (CLEOCIN T) 1 % lotion Apply topically two times a day. 12/12/2022 Active tiotropium (SPIRIVA) 18 MCG inhalation capsule Inhale 1 Capsule (18 mcg). 11/24/2022 Active acetaminophen (TYLENOL) 500 MG tablet Take 2 Tablets (1,000 mg) by mouth every 6 hours as needed. 02/08/2023 Active latanoprost (XALATAN) 0.005 % eye drop solutionIndications: Glaucoma of both eyes, unspecified glaucoma type Place 1 Drop into both eyes daily at bedtime. 7.5 mL 4 12/06/2023 Active omeprazole (PRILOSEC OTC) 20 MG enteric coated tablet Take 1 Tablet (20 mg) by mouth. 09/04/2023 Active Respiratory Therapy Supplies (MCKENZIE AEROSOL CLOUD ENHANCER) For home use. 09/04/2023 Active sennosides-docusate sodium (SENOKOT S) 8.6-50 MG per tablet Take 1-2 Tablets by mouth. 02/13/2024 Active Active Problems Patient Care Coordination No te Formatting of this note migh t be different from the original. Penal Officer - Primary Care Name & Phone Number: Alla Lemus, [facility] [phone] Care Coordination Focus: housing, mental health, community resources Living Situation: with cousins in uncomfortable situation Problem Noted Date Diagnosed Date Status post total replacement of left hip 2022 History of pulmonary embolism 11/30/2022 Primary osteoarthritis of both hips 11/28/2022 Mild obstructive sleep apnea 08/10/2022 Overview (11/08/2022): Setting: AutoPAP 5-9 cmH20 Supplied by: [employer] PSG done: 12-28-21 AHI 10 (EDS) RDI 25 Lowest O2 Sat: 79% Pulmonary embolism and infarction 12/28/2020 Chronic left-sided low back pain without sciatic a 10/13/2020 Macrocytosis without anemia 08/11/2018 Menopausal symptoms 07/05/2018 Vaginal dryness, menopausal 07/05/2018 Anxiety 07/05/2018 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 Mass of right ovary 02/21/2018 Overview (02/21/2018): Added automatically from request for surgery [id number] Ovarian mass 01/27/2018 Herpes simplex vulvovaginitis 01/16/2018 Lipoma of anterior chest wall 10/15/2017 Multiple thyroid nodules 07/11/2017 Overview (07/21/2017): Benign Primary open angle glaucoma of both eyes, modera te stage 04/20/2016 Overview (04/28/2016): Tmax mid 20s; thin avg CCT; moderate cupping w OCT changes L>R; VF: mild nasal step R, inferior arcuate L Arthritis of left hip 11/25/2014 Vitamin D deficiency 01/31/2013 GERD (gastroesophageal reflux disease) 3 Generalized anxiety disorder 03/23/2011 Morbid obesity 08/11/2010 Overview (04/19/2017): Obesity Morbid Resolved Problems Problem Noted Date Diagnosed Date Resolved Date Screen for colon cancer 12/14/201811/26 Overview (12/14/2018): Declines colonoscopy despite strong recommendation due to h/o Sweets. Smoker 07/05/2018 12/08/2020 Health half-way, active care coordination 06/02/2018 01/23/2019 Overview (06/02/2018): Penal Officer: Alla Lemus Medicaid Service Coordinator Penal Officer - [facility], Care coordination focus: housing, mental health, community resources Living situation: with cousins in uncomfortable situation Skin lesion 01/27/2018 12/08/2020 Acute hypokalemia 01/25/2018 02/09/2018 Cellulitis of left lower extremity 01/23/2018 02/09/2018 Sepsis 01/23/2018 02/09/2018 Cellulitis of left leg 01/23/201805/10 Overview (01/25/2018): Added automatically from request for surgery [id number] Thyroid nodule 06/09/2017 07/11/2017 Overview (06/09/2017): 1.8 cm left thyroid nodule. Incidental finding. S/P partial hysterectomy 03/05/2012 Overview (04/28/2016): 2005 Anxiety state 08/11/2010 01/30/2013 Overview (04/19/2017): Anxiety NOS Encounters Date Type Department Care Team Description 03/20/2024 10:00 AM CDT Office Visit [facility] [address] [place] [phone] Abdulkadir Ramos MD S/P total right hip arthroplasty (Primary Dx) 03/13/2024 11:00 AM CDT Office Visit [facility] [id number] [place] [phone] Yadi Call PA-C Postoperative visit (Primary Dx); Draining postoperative wound, subsequent encounter; Disruption of external operation (surgical) wound, not elsewhere classified, subsequent encounter 03/01/2024 3:15 PM CDT Ancillary Procedure Radiology PACS [address] [place] [address] Provider, Foreign Images 02/26/2024 2:00 PM CDT Office Visit [place] [address] [facility] [place] [address] Sagrario Jimenez PA-C S/P total right hip arthroplasty (Primary Dx) 02/26/2024 Telephone [place] [facility] [address] [facility] [address] Sagrario Jimenez PA-C Post-Op Problem; INCISION DRAINING; Nausea; WEAKNESS 02/19/2024 2:00 PM CDT Office Visit [place] [facility] [address] [place] [address] Sagrario Jimenez PA-C Left hip pain; S/P total right hip arthroplasty 02/19/2024 1:55 PM CDT Ancillary Procedure [place] [facility]01 Radiology [address] [facility]. [place] [address] Sagrario Jimenez PA-C S/P total right hip arthroplasty from Last 3 Months Immunizations Name Administration Dates Next Due Flu Vac Preserv Free (3+yrs) 05/16/2011,07/29/20 10 Moderna Monovalent 12+ 02/02/2021,01/01/2021 PPSV23 (Pneumovax) 06/18/2019 TB Skin Test (PPD) 08/26/2013 TDAP (BOOSTRIX) 02/05/2016 Td 10/26/2005 Zoster RZV (Shingrix) 03/24/2021 Family History Medical History Relation Name Comments Dementia Father Glaucoma Father Heart Disease Father Kidney/Bladder Disease Father Heart Attack Mother Glaucoma Brother Cancer, Breast Maternal Aunt Diabetes Paternal Grandmother Glaucoma Sister Amblyopia/Strabismus Negative Family History Blindness Negative Family History Cancer, Ovary Negative Family History Cataract Negative Family History Macular Degeneration Negative Family History Retinal Detachment Negative Family History Relation Name Status Comments Father Mother Brother Maternal Aunt Paternal Grandmother Sister Social History Tobacco Use Types Packs/Day Years Used Date Smoking Tobacco: Former Cigarettes 0.3 8 Smokeless Tobacco: Never Tobacco Cessation:Counseling Given: Not Answered Comments:1-2 daily Alcohol Use Standard Drinks/Week Comments Not Currently 2 (1 standard drink = 0.6 oz pur e alcohol) once a month PHQ-2 Answer Date Recorded PHQ-2 Score 0 05/10/2022 Sex and Gender Information Value Date Recorded Sex Assigned at Not on file Gender Identity Not on file Sexual Orientation Not on file Last Filed Vital Signs Vital Sign Reading Time Taken Comments Blood Pressure 119/69 02/19/2024 4:24 PM CDT Pulse 70 04/19/2023 1:02 PM CDT Temperature 37.2 ??C (99 ??F) 02/19/2024 4:24 PM CDT Respiratory Rate 12 04/25/2022 2:01 PM CDT Oxygen Saturation 98% 11/01/2022 12:38 PM MANAGEMENT CONSULTANT Inhaled Oxygen Concentration - - Weight 113.4 kg (250 lb) 03/20/2024 9:41 AM CDT Height 176.5 cm (5' 9.5) 03/20/2024 9:41 AM CDT Body Mass Index 36.39 03/20/2024 9:41 AM CDT Plan of Treatment Upcoming Encounters Date Type Department Care Team (Late st Contact Info) Description 07/17/2024 10:40 AM MANAGEMENT CONSULTANT Appointment [facility] 39[address] Ophthalmology [address] [place], [place] [phone] Nikita Bergeron MD [address] [place], [place] [phone] Health Maintenance Due Date Last Done Comments HepB (1) 01/25/1984 FIT Colon Cancer Screening 02/04/2021 02/05/2020 Zoster/Shingles (2 of 2) 05/19/2021 03/24/2021 Medicare Annual Wellness Visit 08/28/2023 COVID-19 Vaccine ( season) 2024 02/02/2021, 01/01/2021 Influenza (#1) 2024 05/16/2011, 07/29/2010 Mammogram 06/06/2024 06/06/2023, 05/28, 05/28/2021, Additional history exists Cholesterol 01/29/2025 01/30/2020, 01/26, 02/07/2017, Additional history exists Diabetes Screening- (based on age and BMI) 04/18/2025 04/18/2022, 03/12/2021, 02/09/2018, Additional history exists DTaP/Tdap/Td (2 - Tdap) 02/04/2026 02/05/2016, 10/26 Hep C Screening (Preventive Services) Completed 01/28/2018, 07/17/2017 Pneumococcal Aged Out 06/18/2019 No longer eligi ble based on patient's age to complete this topic HIV Screening (Preventive Services) Completed 08/16/2022, 01/25/2018, 07/17/2017, Additional history exists HepA Aged Out No longer eligi ble based on patient's age to complete this topic Hib Aged Out No longer eligi ble based on patient's age to complete this topic IPV (Polio) Aged Out No longer eligi ble based on patient's age to complete this topic MCV4 Aged Out No longer eligi ble based on patient's age to complete this topic Goals Goal Patient Goal Type Associated Problems Recent Progress Patient-Stated? Author HIP REPLACEMENT - RIGHT - [facility] Care Plan ET PROE HIP REPLACEMENT - RIGHT - [facility] Samia Erwin Moran [place] Procedures Procedure Name Priority Date/Time Associated Diagnosis Comments FOREIGN IMAGE(S) XR HIP RT Routine 03/01/2024 3:15 PM CDT BODY FLUID AEROBIC CULTURE Routine 02/19/2024 3:45 PM CDT S/P total right hip arthroplasty BODY FLUID MANUAL DIFFERENTIAL Routine 02/19/2024 3:45 PM CDT S/P total right hip arthroplasty BODY FLUID CELL COUNT Routine 02/19/2024 3:45 PM CDT S/P total right hip arthroplasty CELL COUNT WITH REFLEX TO DIFFERENTIAL, BODY FLUID Routine 02/19/2024 3:45 PM CDT S/P total right hip arthroplasty XR PELVIS W RT LATERAL HIP Routine 02/19/2024 2:09 PM CDT S/P total right hip arthroplasty MM MAMMOGRAM SCREENING BILAT W CAD Routine 06/13/2022 10:40 AM CDT Visit for screening mammogram HGB A1C Routine 03/12/2021 12:21 PM CDT Nail discoloration FIT,OCCULT BLOOD, STOOL Routine 02/05/2020 5:08 PM CDT Screen for colon cancer LIPID PANEL & DIRECT LDL (IF NEEDED) Routine 01/30/2020 10:28 AM CDT Lipid screening HEPATITIS C ANTIBODY, WITH REFLEX Specified Time 01/28/2018 6:39 AM CDT HIV 1/2 AG/AB 4TH GEN Specified Time 01/25/2018 6:50 AM CDT from Last 3 Months or Most Recently Relevant to Health Maintenance Results * Foreign Image(S) XR Hip Rt (03/01/2024 3:15 PM CDT) Narrative POCT - 03/12/2024 3:14 PM CDT These outside images have been uploaded into PACS. If the results were provided, they will be located in the patient's chart under the Media or Imaging tab. Foreign Images Provider RAD NON-REPORTAB LES Performing Organization Address City/[facility] Co de Phone Number POCT * Body Fluid Manual Differential (02/19/2024 3:45 PM CDT) Neutrophil % 81 % 02/20/2024 12:15 AM CDT [facility] Lymphocyte % 2 % 02/20/2024 12:15 AM CDT [facility] Monocyte/Macrop maulik % 17 % 02/20/2024 12:15 AM CDT [facility] Synovial Fluid RIGHT HIP REGION STRUCTURE / Unknown 02/19/2024 3:45 PM CDT 02/19/2024 3:48 PM CDT Sagrario Jimenez PA-C LAB_1 Performing Organization Address [facility] [place]/[facility] de Phone Number [facility] [address] [place] [address], [facility] * Body Fluid Aerobic Culture (02/19/2024 3:45 PM CDT) Body Fluid Culture No growth after 3 days 02/23/2024 12:20 PM CDT [facility] Gram Smear Few PMN's Present 02/23/2024 12:20 PM CDT [facility] Gram Smear No Organisms Seen 02/23/2024 12:20 PM CDT [facility] Synovial Fluid RIGHT HIP REGION STRUCTURE / Unknown 02/19/2024 3:45 PM CDT 02/19/2024 3:48 PM CDT Sagrario Jimenez PA-C LAB_1 Performing Organization Address [facility] [place]/[facility] Co de Phone Number [address] [address], [place] * (ABNORMAL) Body Fluid Cell Count (02/19/2024 3:45 PM CDT) Type Synovial Fluid 02/20/2024 12:15 AM CDT [facility] Source Hip, right 02/20/2024 12:15 AM CDT [facility] Appearance Bloody(A) Clear 02/20/2024 12:15 AM CDT [facility] Red Blood Cells 177,000 /uL 02/20/2024 12:15 AM CDT [facility] Comment:The reference interv al has not been established. The test result must be integrated into the clinical context for interpretation. Total Nucleated Cells 8,587 /uL 02/20/2024 12:15 AM CDT [facility] Comment:The reference interv al has not been established. The test result must be integrated into the clinical context for interpretation. Synovial Fluid RIGHT HIP REGION STRUCTURE / Unknown 02/19/2024 3:45 PM CDT 02/19/2024 3:48 PM CDT Sagrario Jimenez PA-C LAB_1 [facility] [address] * XR Pelvis W Rt Lateral Hip (02/19/2024 2:09 PM CDT) Anatomical Region Laterality Modality Pelvis, Hip Computed Radiogr aphy 02/19/2024 1:53 PM CDT Impressions 02/19/2024 3:14 PM CDT COMPARISON: ??02/10/2024 FINDINGS: ??Bilateral total hip arthroplasties are in satisfactory position and alignment without evidence of complications. Narrative Procedure Note Joseph Kelley MD - 02/19/2024 IMPRESSION COMPARISON: 02/10/2024 FINDINGS: Bilateral total hip arthroplasties are in satisfactory positionand alignment without evidence of complications. Sagrario Jimenez PA-C RAD GD * MM Mammogram Screening Bilat W CAD (06/13/2022 10:40 AM CDT) Anatomical Region Laterality Modality Breast Bilateral Mammography Impressions 06/13/2022 11:39 AM CDT : ACR BI-RADS Category 1: Negative RECOMMENDATION: Follow Up Imaging in 12 months - Bilateral The results and recommendations of this examination will be communicated to the patient. Narrative 06/13/2022 11:39 AM CDT MM MAMMOGRAM SCREENING BILAT W CAD performed on 06/13/22 Compared to: 05/28/2021 M Mammogram Diag Bilat W 3D [place], 07/16/2020 MM Mammogram Screening Bilat W CAD, and 01/08/2019 MM Mammogram Screening Bilat W CAD ?? FINDINGS: Bilateral screening mammogram was performed with the assistance of Computer-Aided Detection . The breasts have scattered areas of fibroglandular density. There is no radiographic evidence of malignancy. ?? Araceli Orlando APRN, ESDRAS RAD KEVIN * Hemoglobin A1C Glycosylated (03/12/2021 12:21 PM CDT) Hemoglobin A1C 5.5 <=5.6 % 03/12/2021 8:09 PM CDT [facility] Blood Venipuncture / Unknown 03/12/2021 12:21 PM CDT 03/12/2021 12:21 PM CDT Araceli Orlando APRN, CNP LAB_1 Performing Organization Address [facility] [place]/[facility] Co de Phone Number [facility] [address] [place] [phone] [place] [address] * FIT Colon Rectal Cancer Screening (02/05/2020 5:08 PM CDT) FIT Specimen 1 Negative Negative 02/10/2020 2:02 PM CDT [facility] Stool 02/05/2020 5:08 PM CDT 02/05/2020 5:08 PM CDT Araceli Orlando APRN, CNP LAB_1 Performing Organization Address [facility] [place] Co de Phone Number [facility] [address] [address] [phone] * (ABNORMAL) Lipid Panel - LDLD If Trig High (01/30/2020 10:28 AM CDT) Pathologist [facility] Cholesterol 208(H) 0 - 199 mg/dL 01/30/2020 10:55 AM CDT [facility] Triglyceride 84 <=149 mg/dL 01/30/2020 10:55 AM CDT [facility] HDL Cholesterol 44 >=40 mg/dL 01/30/2020 10:55 AM CDT [facility] LDL, Calculated 147(H) <130 mg/dL 01/30/2020 10:55 AM CDT [facility] Non HDL Chol, Calculated 164 mg/dL 01/30/2020 10:55 AM CDT [facility] Cholesterol/HDL Ratio 4.7 01/30/2020 10:55 AM CDT [facility] Hours Fasting Unknown 01/30/2020 10:55 AM CDT [facility] Blood Venipuncture / Unknown 01/30/2020 10:28 AM CDT 01/30/2020 10:28 AM CDT Araceli Orlando APRN, CNP LAB_1 Performing Organization Address City/[facility]/ZIP Co de Phone Number [facility] [address] [place] [address], [facility] [phone] * Hepatitis C Antibody, with Reflex (01/28/2018 6:39 AM CDT) Pathologist [facility] Hepatitis C Antibody Nonreactive Nonreactive PN SOFT 01/28/2018 6:39 AM CDT 01/28/2018 6:47 AM CDT Narrative PN SOFT - 01/28/2018 7:26 AM CDT Performed at [address] [address] CLIA number [id number] Janny Dickey MD LAB_1 Performing Organization Address City/[facility]/ZIP Co de Phone Number PN SOFT [address] [place] [address] * HIV 1/2 Ag/Ab 4th Generation (01/25/2018 6:50 AM CDT) HIV-1 p24 Ag and HIV-1/HIV-2 Ab Nonreactive Nonreactive PN SOFT 01/25/2018 6:50 AM CDT 01/25/2018 6:57 AM CDT Narrative PN SOFT - 01/25/2018 7:55 AM CDT Performed at [place] [address] [place] [address] CLIA number [id number] Ahsan Simms MD LAB_1 [facility] [address] [place] [address] from Last 3 Months or Most Recently Relevant to Health Maintenance Additional Health Concerns Active Problems Noted Date Diagnosed Date ET PROE HIP REPLACEMENT - RIGHT - [facility] Advance Directives * Full Code (Latest Code Status on File) Date Activated Date Inactivated Comments 04/10/2018 3:21 PM 04/12/2018 1:13 PM * Full Code Date Activated Date Inactivated Comments 01/23/2018 3:27 PM 01/29/2018 4:33 PM Care Teams Senior Financial Reporting Analyst Relationship Specialty Start Date End Date Needs Pcp, [place] [address] PCP - General 03/14/23
--- OUTSIDE RECORDS SUMMARY | 2024-05-20 15:52 | XMS_ITS | Encounter Summary ---
Author Organization [facility] Address [address] [place] [address] Care Team Providers Care County Supervisor Name Role Phone Needs Pcp, Assignment Primary Care Provider [phone] Reason for Visit * Procedure/Equipment (Routine) - Incomplete Specialty Diagnoses / Procedures Referred By Contac t Referred To Contact Procedures Foreign Image(S) XR Pelvis and Hip Provider, Foreign Images [address] [place] [address] Referral ID Status Reason Start Date Expiration Date V isits Requested Visits Authorized [id number] Incomplete 02/15/2024 05/16/2025 1 1 Encounter Details Date Type Department Care Team (Late st Contact Info) Description 02/10/2024 Ancillary Procedure [facility] P[facility] [address] [place] [address] Provider, Foreign Images [address] [place] [address] Social History Tobacco Use Types Packs/Day Years Used Date Smoking Tobacco: Former Cigarettes 0.3 8 Smokeless Tobacco: Never Comments:1-2 daily Alcohol Use Standard Drinks/Week Comments Not Currently 2 (1 standard drink = 0.6 oz pur e alcohol) once a month PHQ-2 Answer Date Recorded PHQ-2 Score 0 05/10/2022 Sex and Gender Information Value Date Recorded Sex Assigned at Not on file Gender Identity Not on file Sexual Orientation Not on file documented as of this encounter Plan of Treatment Upcoming Encounters Date Type Department Care Team (Late st Contact Info) Description 07/17/2024 10:40 AM STORE RECEIVING CLERK Appointment [facility] 3900 Ophthalmology [address] [facility] [place] [place], [place] [phone] Nikita Bergeron MD [address] [place] [address] documented as of this encounter Goals Goal Patient Goal Type Associated Problems Recent Progress Patient-Stated? Author HIP REPLACEMENT - RIGHT - [facility] Care Plan ET PROE HIP REPLACEMENT - RIGHT - [facility] Samia Erwin Moran documented as of this encounter Procedures Procedure Name Priority Date/Time Associated Diagnosis Comments FOREIGN IMAGE(S) XR PELVIS AND HIP Routine 02/10/2024 12:00 AM CDT documented in this encounter Results * Foreign Image(S) XR Pelvis and Hip (02/10/2024 12:00 AM CDT) Narrative POCT - 02/15/2024 10:30 AM CDT These outside images have been uploaded into PACS. If the results were provided, they will be located in the patient's chart under the Media or Imaging tab. Foreign Images Provider RAD NON-REPORTAB LES POCT documented in this encounter Visit Diagnoses Not on filedocumented in this encounter Additional Health Concerns Active Problems Noted Date Diagnosed Date ET PROE HIP REPLACEMENT - RIGHT - [facility] documented as of this encounter Care Teams County Supervisor Relationship Specialty Start Date End Date Needs Pcp, [place] [address] PCP - General 03/14/23 documented as of this encounter
--- OUTSIDE RECORDS SUMMARY | 2024-05-20 15:52 | XMS_ITS | Encounter Summary ---
[facility] Address [address] [place] [address] Care Team Providers Care Field Nurse Name Role Phone Needs Pcp, Assignment Primary Care Provider [phone] Reason for Visit * Procedure/Equipment (Routine) - Incomplete Specialty Diagnoses / Procedures Referred By Contac t Referred To Contact Diagnoses S/P total right hip arthroplasty Procedures XR Pelvis W Rt Lateral Hip Sagrario Jimenez PA-C [id number] [place] [address] Referral ID Status Reason Start Date Expiration Date V isits Requested Visits Authorized [id number] Incomplete 02/19/2024 05/20/2025 1 1 Encounter Details Date Type Department Care Team (Latest Contact Info) Description 02/19/2024 1:55 PM CDT Ancillary Procedure [place] 1601 Radiology [address] [place]. [place] [address] Sagrario Jimenez PA-C [id number] [place] [address] S/P total right hip arthroplasty Social History Tobacco Use Types Packs/Day Years [...] st Contact Info) Description 07/17/2024 10:40 AM DIRECTOR OF REGULATORY AFFAIRS Appointment [facility] 3900 Ophthalmology [address] [facility] [place], [place] [phone] Nikita Bergeron MD [address] [place], [place] [phone] documented as of this encounter Goals Goal Patient Goal Type Associated Problems Recent Progress Patient-Stated? Author HIP REPLACEMENT - RIGHT - [facility] Care Plan ET PROE HIP REPLACEMENT - RIGHT - [facility] Erwin Rose documented as of this encounter Procedures Procedure Name Priority Date/Time Associated Diagnosis Comments XR PELVIS W RT LATERAL HIP Routine 02/19/2024 2:09 PM CDT S/P total right hip arthroplasty documented in this encounter Results * XR Pelvis W Rt Lateral Hip [...] positionand alignment without evidence of complications. Sagrario MUÑOZ GD documented in this encounter Visit Diagnoses Diagnosis S/P total right hip arthroplasty documented in this encounter Additional Health Concerns Active Problems Noted Date Diagnosed Date ET PROE HIP REPLACEMENT - RIGHT - [facility] documented as of this encounter Care Teams Field Nurse Relationship Specialty Start Date End Date Needs Pcp, [place] [address] PCP - General 03/14/23 documented as of this encounter
--- OUTSIDE RECORDS SUMMARY | 2024-05-20 15:52 | XMS_ITS | Encounter Summary ---
[facility] Organization [facility] Address [address] [place] [address] Care Team Providers Care Funnel Setter Name Role Phone Needs Pcp, Assignment Primary Care Provider [phone]- [phone] Reason for Visit * Reason Comments QUESTIONS, GENERAL Encounter Details Date Type Department Care Team (Late st Contact Info) Description 02/12/2024 [facility] [address] [place] [address] [place] [address] [facility] [address]ST [place] [address] QUESTIONS, GENERAL Social History Tobacco Use Types Packs/Day Years [...] on file documented as of this encounter Nursing Notes * Vero Washington - 02/12/2024 3:33 PM CDT GENERAL QUESTIONS How may we help you today? Fely from [facility] calling stating to cancel message that they got an appointment with Sagrario Jimenez instead. Describe your symptoms/concerns: na When did the issue start: na Have you been seen for this recently?: If we are unable to reach you can we leave a detailed message on your voicemail? No If we are unable to reach you can we send you a message in myChart? No [Managed Care Director/Fiction And Nonfiction Prose Writer: Relay to patient; We make every effort to get back to you sameday, however it may take 1-2 business days depending on the nature of the communication.] * July Reza - 02/12/2024 2:06 PM CDT GENERAL QUESTIONS How may we help you today? Fely from [facility] requesting to reschedule patients post op visit to next week. Patient is currently scheduled for 02/14/24. Technical Product Manager does not see any available slots on providers schedule for next week. Describe your symptoms/concerns: When did the issue start: Have you been seen for this recently?: If we are unable to reach you can we leave a detailed message on your voicemail? If we are unable to reach you can we send you a message in myChart? [Managed Care Director/Fiction And Nonfiction Prose Writer: Relay to patient; We make every effort to get back to you sameday, however it may take 1-2 business days depending on the nature of the communication.] documented in this encounter Plan of Treatment Upcoming Encounters Date Type Department Care Team (Late st Contact Info) Description 07/17/2024 10:40 AM SENIOR ESCROW OFFICER Appointment [facility] [address] [facility] [place] [address] Nikita Bergeron MD [address] [facility] [place] [address] documented as of this encounter Goals Goal Patient Goal Type Associated Problems Recent Progress Patient-Stated? Author HIP REPLACEMENT - [facility] Care Plan ET PROE HIP REPLACEMENT - [facility] Erwin Rose documented as of this encounter Visit Diagnoses Not on filedocumented in this encounter Additional Health Concerns Active Problems Noted Date Diagnosed Date ET PROE HIP REPLACEMENT - RIGHT [facility] 05/ documented as of this encounter Care Teams Funnel Setter Relationship Specialty Start Date End Date Needs Pcp, [place] [address] PCP - General 03/14/23 documented as of this encounter
--- OUTSIDE RECORDS SUMMARY | 2024-05-20 15:52 | XMS_ITS | Encounter Summary ---
Author Organization [facility] Address [address] [place] [address] Care Team Providers Care Fringe Weaver Name Role Phone Needs Pcp, Assignment Primary Care Provider [phone] Reason for Visit * Reason Comments Post-Op Problem INCISION DRAINING Nausea WEAKNESS Encounter Details Date Type Department Care Team (Late st Contact Info) Description 02/26/2024 Telephone [facility] 1601 Orthopedics [address] [facility] [place] [address] Sagrario Jimenez PA-C [address] [place] [id number] Post-Op Problem; INCISION DRAINING; Nausea; WEAKNESS Social History Tobacco Use Types Packs/Day Years [...] as of this encounter Nursing Notes * Sagrario Jimenez PA-C - 03/01/2024 3:14 PM CDT Patient admitted. I saw her in the hospital plan in place. Sagrario Jimenez PA-C 3:14 PM 03/01/2024 * Ana Stevenson RN - 03/01/2024 8:09 AM CDT Spoke with the patient and she states that she is noticing her incision is more red today and stilldraining. She also states that for the last three days she just hasn't been feeling well. She has feelings oflightheadedness and can't stand for long due to feeling weak. 02/27 temp of 99.0F 02/28 temp of 100F 03/01 temp of 99.7 at 0620 The pt states her BP on 02/26 was 96/66 at 1120 and then 103/81 at 1145. The pt called and spoke with her PCP's office after these readings. Nurse triage encounter available to review via care everywhere. The pt notes she sweat through the sheet she has over her recliner last night and has felt clammy and too weak to get into the shower. The pt also notes nausea and loss of appetite. The pt was advised to go to the ED at [facility] today. Discussed to have someone drive her, but if unable to get into a vehicle safely or find someone to spotter driver her to call 911 to be brought to the ED. The pt verbalized understanding and agrees to go to the ED today for evaluation. DOS: 02/08/24 right MARY Last office visit 02/26/24 Future Appointments Provider Department Center 03/20/2024 10:00 AM (Arrive by 9:45 AM) Abdulkadir Ramos MD [facility] 07/17/2024 10:40 AM Nikita Bergeron MD [facility] 3900 Ophthalmology PN [id number] * Nish Millan - 03/01/2024 8:06 AM CDT Pt is calling saying that she is now experiencing a lot of swelling, and is kaminski red and leaking fluid. VM: YES * Sagrario Jimenez PA-C - 02/26/2024 4:23 PM CDT Patient needs an apt Thursday 03/01 or Sunday 03/04. Please get her an apt with Jakub Ramos Nicole Yon, Peter Polanco. Please let me know who she is scheduled with so I can connect with them on plan. Patient will need to be called about this apt. She needs to set up transportation for this apt. If patient is still draining Dr. Ramos is okay with placing a stitch in the incision. Sagrario Jimenez PA-C 4:25 PM 02/26/2024 documented in this encounter Plan of Treatment Upcoming Encounters Date Type Department Care Team (Late st Contact Info) Description 07/17/2024 10:40 AM BUSINESS INVESTOR Appointment [facility] [address] Ophthalmology [address] [facility]. [place], [place] [address] Nikita Bergeron MD [address] [place], [place] [id number] documented as of this encounter Goals Goal Patient Goal Type Associated Problems Recent Progress Patient-Stated? Author HIP REPLACEMENT - RIGHT [facility] Care Plan ET PROE HIP REPLACEMENT - RIGHT [facility] Erwin Rose documented as of this encounter Visit Diagnoses Not on filedocumented in this encounter Additional Health Concerns Active Problems Noted Date Diagnosed Date ET PROE HIP REPLACEMENT - RIGHT - [facility] documented as of this encounter Care Teams Fringe Weaver Relationship Specialty Start Date End Date Needs Pcp, Assignment [place], [place] [phone] PCP - General 03/14/23 documented as of this encounter
--- OUTSIDE RECORDS SUMMARY | 2024-05-20 15:52 | XMS_ITS | Encounter Summary ---
Author Organization [facility] Address [address] [place] [address] Care Team Providers Care Technical Applications Scientist Name Role Phone Needs Pcp, Assignment Primary Care Provider [phone]- [phone] Reason for Visit * Reason Comments Follow-up Incision check S/p L eft MARY DOS 02/08/2024 Encounter Details Date Type Department Care Team (Late st Contact Info) Description 02/26/2024 2:00 PM CDT Office Visit [facility] Orthopedics [address] [facility]. [place] [address] Sagrario Jimenez, HENRIQUE [address] [place] [address] S/P total right hip arthroplasty (Primary Dx) Social History Tobacco Use Types Packs/Day Years [...] on file documented as of this encounter Patient Instructions * Patient Instructions* Sagrario Jimenez PA-C - 02/26/2024 2:00 PM CDT Change your dressing every day to keep it dry. Go see your provider to talk about the nausea. We talked about having your hemoglobin checked today. You would like to have this done with your health care provider. If the dressing is saturating faster then once a day call Dr. Ramos. documented in this encounter Progress Notes * Sagrario Jimenez PA-C - 02/26/2024 2:00 PM CDT Orthopedics - Sagrario Jimenez PA-C Barbara Martinez 59 y.o. Female : 1965 [place] Date of Service: 02/26/2024 Chief Complaint: post op follow up after right total hip arthroplasty Revenue Field Agent Present: no HPI: Barbara Martinez is a 59 y.o. female with history of pulmonary embolism on anticoagulation with Xarelto, osteoarthritis of the right hip, generalized anxiety disorder, obstructive sleep apnea, GERD, obesity s/p total hip arthroplasty, superPATH technique by Dr. Ramos on 02/08/2024. They are approxima tely 1.5 weeks out. Xarelto was resumed post op. She was initially DC to a TCU but while there developed fever and hypotension. Was sent to the ED and admitted on 02/09. She had the same post op issues after her left hip in January 2023 with post op fever, sepsis, and hypotension. No etiology was foundto explain either cases. 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 She denies fever at home but has been getting the sweats. No issue with hypotension. When she was DC to home on 02/12 from the hospital she bumped her right hip/buttock on the door. Did not think much of it. A few days later her bed was soaked with bloody fluid. She has persistent serosanguinous drainage from her hip now. Denies fever at home. She has been having some chills. No hypotension. 02/26/2024: she has small amount of bloody/serous drainage in the prevena. The swelling has reduced quite a bit. She has no fever but feels nauseated. She reports dark stools. Aspirate of seroma/hematoma last visit negative. Patient Active Problem List Diagnosis Morbid obesity (HRC) Generalized anxiety disorder (HRC) GERD (gastroesophageal reflux disease) Vitamin D deficiency (HRC) Arthritis of left hip Primary open angle glaucoma of both eyes, moderate stage Multiple thyroid nodules (HRC) Lipoma of anterior chest wall Herpes simplex vulvovaginitis (HRC) Ovarian mass Mass of right ovary Sweet's syndrome Menopausal symptoms Vaginal dryness, menopausal Anxiety (HRC) Macrocytosis without anemia Chronic left-sided low back pain without sciatica Pulmonary embolism and infarction (HRC) Mild obstructive sleep apnea Primary osteoarthritis of both hips History of pulmonary embolism Status post total replacement of left hip Social History Tobacco Use Smoking status: Former Current packs/day: 0.25 Average packs/day: 0.3 packs/day for 8.0 years (2.0 ttl pk-yrs) Types: Cigarettes Smokeless tobacco: Never Tobacco comments: 1-2 daily Vaping Use Vaping status: Never Used Substance Use Topics Alcohol use: Not Currently Alcohol/week: 2.0 standard drinks of alcohol Types: 2 Standard drinks or equivalent per week Comment: once a month Drug use: No Allergies: Citalopram, Other, Rosuvastatin, Sulfa antibiotics, and Zyrtec [cetirizine] Outpatient Medications Prior to Visit Medication Sig Dispense Refill acetaminophen (TYLENOL) 500 MG tablet Take 2 Tablets (1,000 mg) by mouth every 6 hours as needed. ALBUterol sulfate HFA 108 (90 Base) MCG/ACT inhaler Inhale. cholecalciferol (VITAMIND3) 25 MCG (1000 UT) capsule Take 1 Capsule (1,000 Units) by mouth. clindamycin (CLEOCIN T) 1 % lotion Apply topically two times a day. esomeprazole (NEXIUM) 20 MG capsule Take 1 Capsule (20 mg) by mouth daily. 90 Capsule 3 Fluocinolone Acetonide Scalp 0.01 % OIL Apply topically. latanoprost (XALATAN) 0.005 % eye drop solution Place 1 Drop into both eyes daily at bedtime. 7.5 mL 4 omeprazole (PRILOSEC OTC) 20 MG enteric coated tablet Take 1 Tablet (20 mg) by mouth. Respiratory Therapy Supplies (MCKENZIE AEROSOL CLOUD ENHANCER) For home use. rivaroxaban (XARELTO) 10 MG tablet Take 1 Tablet (10 mg) by mouth every evening with a meal. 90 Tablet prn sennosides-docusate sodium (SENOKOT S) 8.6-50 MG per tablet Take 1-2 Tablets by mouth. tiotropium (SPIRIVA) 18 MCG inhalation capsule Inhale 1 Capsule (18 mcg). No facility-administered medications prior to visit. Review of Systems: Pertinent review of systems negative except for what is noted in the HPI. Physical Exam: Constitutional: Well developed, well nourished, no acute distress, non-toxic appearance. right hip: Incision is closed. There is a spot about 1 cm over the distal incision that has about 1mm gap if spread. No active oozing. Lateral hip and thigh soft. Much less swollen from prior. Hip ROM is not painful Assessment and Plan: 1.) Post op check following a right total hip arthroplasty by Dr. Ramos with a Post operative seroma/hematoma - aspirate of the hematoma negative for infection - prevena removed. Skin becoming slightly macerated around the distal portion of the incision. I have converted her to a dry dressing. I would like her to change this daily or more if needed. - FU next week for a wound check. If saturating the dressings may need to FU sooner. 2.) Nausea and dark stools - I would like her to get Hgb check. If substantial drop will need to go to ED for GI bleed evaluation. Sagrario Jimenez PA-C 3:20 PM 02/26/2024 ICD-10-CM 1. S/P total right hip arthroplasty Z96.641 Complete Blood Count-No Diff documented in this encounter Plan of Treatment Upcoming Encounters Date Type Department Care Team (Late st Contact Info) Description 07/17/2024 10:40 AM NURSING FACULTY Appointment [facility] 3900 Ophthalmology [address] [facility] [place], [place] [address] Nikita Bergeron MD [address] [place] [address] documented as of this encounter Goals Goal Patient Goal Type Associated Problems Recent Progress Patient-Stated? Author HIP REPLACEMENT - [facility] Care Plan ET PROE HIP REPLACEMENT - [facility] No Erwin Moran documented as of this encounter Visit Diagnoses Diagnosis S/P total right hip arthroplasty- Primary documented in this encounter Additional Health Concerns Active Problems Noted Date Diagnosed Date ET PROE HIP REPLACEMENT - RIGHT - [facility] documented as of this encounter Care Teams Technical Applications Scientist Relationship Specialty Start Date End Date Needs Pcp, [place] [address] PCP - General 03/14/23 documented as of this encounter
--- OUTSIDE RECORDS SUMMARY | 2024-05-20 15:52 | XMS_ITS | Encounter Summary ---
Author Organization [facility] Address [address] [place] [address] Care Team Providers Care Mine Environmental Engineer Name Role Phone Needs Pcp, Assignment Primary Care Provider [phone] [phone] Reason for Visit * Procedure/Equipment (Routine) - Incomplete Specialty Diagnoses / Procedures Referred By Contac t Referred To Contact Procedures Foreign Image(S) XR Chest Provider, [facility] [address] [place] [address] Referral ID Status Reason Start Date Expiration Date V isits Requested Visits Authorized [id number] Incomplete 03/12/2024 06/11/2025 1 1 Encounter Details Date Type Department Care Team (Late st Contact Info) Description 02/10/2024 3:05 PM CDT Ancillary Procedure [facility] [address] [place] [address] Provider, Foreign Images [address] [place] [address] Social History Tobacco Use Types Packs/Day Years [...] st Contact Info) Description 07/17/2024 10:40 AM RAGMAN Appointment [facility] 3900 Ophthalmology [address] [facility] [place] [address] Nikita Bergeron MD [address] [place] [address] documented as of this encounter Goals Goal Patient Goal Type Associated Problems Recent Progress Patient-Stated? Author HIP REPLACEMENT - RIGHT - [facility] Care Plan ET PROE HIP REPLACEMENT - RIGHT - [facility] No Erwin Moran documented as of this encounter Procedures Procedure Name Priority Date/Time Associated Diagnosis Comments FOREIGN IMAGE(S) XR CHEST Routine 02/10/2024 3:05 PM CDT documented in this encounter Results * Foreign Image(S) XR Chest (02/10/2024 3:05 PM CDT) Narrative POCT - 03/12/2024 3:14 [...] documented as of this encounter Care Teams Mine Environmental Engineer Relationship Specialty Start Date End Date Needs Pcp, [place] [address] PCP - General 03/14/23 documented as of this encounter
--- OUTSIDE RECORDS SUMMARY | 2024-05-20 15:52 | XMS_ITS | Encounter Summary ---
Author Organization [facility] Address [address] [place] [address] Care Team Providers Care Sports Medicine Specialist Name Role Phone Needs Pcp, Assignment Primary Care Provider [phone] [phone] Reason for Visit * Reason Comments Post-Op Check Right MARY- 6-13-24 Encounter Details Date Type Department Care Team (Late st Contact Info) Description 03/13/2024 11:00 AM CDT Office Visit [facility] [address] [place] [address] Yadi Call PA-C [address] [place], [place] [address] Postoperative visit (Primary Dx); Draining postoperative wound, subsequent encounter; Disruption of external operation (surgical) wound, not elsewhere classified, subsequent encounter Social History Tobacco Use Types Packs/Day Years [...] this encounter Patient Instructions * Patient Instructions* Ely Mendez CMA - 03/13/2024 11:00 AM CDT Thank you for choosing [facility] for your health care visit today. Yadi Call PA-C Physician Medical Record Clerk General Orthopedics [facility] Advanced Imaging Scheduling: To schedule advanced imaging including MRI's, CT Scans, Ultrasounds and Fluoroscopic guided injections at a [facility] location please call [phone]. Medication Requests: Prescriptions are not filled on weekends or on weekdays after 3:00 PM. For all medication refills: Request a refill using MyChart or contact your pharmacy. [facility] [employer] [address] [place] [address] (Phone) Email: [email or web address] What is Know Your Cost? Know Your Cost is a service for patients and patient/members to call and receive personalized cost information and estimates across our care group. The phone number is (COST) Monday - Monday 8 AM to 5 PM Release of Information: Radiology/Imaging Health Information Management [address] [address] [place] [address] (Phone) [phone] (Phone) [employer] documented in this encounter Progress Notes * Yadi Call PA-C - 03/13/2024 11:00 AM CDT Chief Complaint: S/P I&D Right Hip (DOS: 03/06/24) History of Present Illness: Barbara Martinez is a 59 y.o. female who presents one week status post I&D right hip by Dr. Ramos. She has had no pain in her hip since surgery and she has had no drainage in the Prevena. She ambulates with a walker. She states she thinks she has been getting sick due to the blood thinners such thatshe was on and she is going to discuss stopping them with her prescribing provider. Physical Exam: GENERAL: Alert, cooperative, in no acute distress. Ambulates with a walker. MUSCULOSKELETAL: HIP: Her incision was clean dry and intact prior to removing sutures. However, upon removing sutures she began to drain from poke holes of where the suture has been. A Mepilex dressing was applied. Assessment: S/P I&D Right Hip Plan: Prevena dressing removed today. Sutures removed. Mepilex dressing applied and she was instructed tochange this every 2 days until she sees Dr. Ramos 1 week from today. I also ordered a ultrasound guided aspiration to look for any sort of fluid collection in the area. I recommended she wear compression shorts for the time being as well. Yadi Call PA-C documented in this encounter Plan of Treatment Upcoming Encounters Date Type Department Care Team (Late st Contact Info) Description 07/17/2024 10:40 AM CODING MANAGER Appointment [facility] 39[address] Ophthalmology [address] [facility]. [place], [place] [address] Nikita Bergeron MD [address] [place], [place] [address] documented as of this encounter Goals Goal Patient Goal Type Associated Problems Recent Progress Patient-Stated? Author HIP REPLACEMENT - [facility] Care Plan ET PROE HIP REPLACEMENT - [facility] Erwin Rose documented as of this encounter Visit Diagnoses Diagnosis Postoperative visit- Primary Draining postoperative wound, subsequent encounter Disruption of external operation (surgical) wound, not elsewhere classified, subsequent encounter documented in this encounter Additional Health Concerns Active Problems Noted Date Diagnosed Date ET PROE HIP REPLACEMENT - [facility] documented as of this encounter Care Teams Sports Medicine Specialist Relationship Specialty Start Date End Date Needs Pcp, Assignment [place], [place] [address] PCP - General 03/14/23 documented as of this encounter
--- OUTSIDE RECORDS SUMMARY | 2024-05-20 15:52 | XMS_ITS | Encounter Summary ---
[facility] Organization [facility] Address [address] [place] [address] Care Team Providers Care Platform Builder Name Role Phone Needs Pcp, Assignment Primary Care Provider [phone] [phone] Reason for Referral * Procedure/Equipment (Routine) - Incomplete Specialty Diagnoses / Procedures Referred By Contac t Referred To Contact Diagnoses S/P total right hip arthroplasty Procedures XR Pelvis W Rt Lateral Hip Sagrario iJmenez PA-C [address] [place] [address] Referral ID Status Reason Start Date Expiration Date V isits Requested Visits Authorized [id number] Incomplete 02/19/2024 05/20/2025 1 1 Reason for Visit * Reason Comments Post-Op Follow Up Right MARY DOS 2023 Encounter Details Date Type Department Care Team (Late st Contact Info) Description 02/19/2024 2:00 PM CDT Office Visit [facility] Orthopedics [address] [place] [address] Sagrario Jimenez PA-C [id number] [id number] Left hip pain; S/P total right hip arthroplasty Social History [...] on file documented as of this encounter Last Filed Vital Signs Vital Sign Reading Time Taken Comments Blood Pressure 119/69 02/19/2024 4:24 PM CDT Pulse - - Temperature 37.2 ??C (99 ??F) 02/19/2024 4:24 PM CDT Respiratory Rate - - Oxygen Saturation - - Inhaled Oxygen Concentration - - Weight - - Height - - Body Mass Index - - documented in this encounter Patient Instructions * Patient Instructions* Sagrario Jimenez PA-C - 02/19/2024 2:00 PM CDT Wear the prevena incisional VAC until we take it off. Make sure to plug it in every night before bed. You can shower but keep the battery pack out of the water. If you get a fever, or change in how the hip feels please go to the emergency room. If the canister gets to 150 call us as you will need a new canister. Follow up next week. documented in this encounter Progress Notes * Sagrario Jimenez PA-C - 02/19/2024 2:00 PM CDT Orthopedics - Sagrario Jimenez PA-C Barbara Martinez 59 y.o. Female : 1965 PN Date of Service: 02/19/2024 Chief Complaint: post op follow up after right total hip arthroplasty Golf Ball Inspector Present: no HPI: Barbara Martinez is a [...] has been having some chills. No hypotension. Patient Active Problem List Diagnosis Morbid obesity [...] by mouth every 6 hours as needed. acyclovir (ZOVIRAX) 5 % ointment Apply topically. ALBUterol sulfate HFA 108 (90 Base) MCG/ACT [...] Take 1 Tablet (20 mg) by mouth. predniSONE (DELTASONE) 20 MG tablet Take by mouth. Respiratory Therapy Supplies (MCKENZIE AEROSOL [...] distress, non-toxic appearance. right hip: Incision is healing well but there is serosanguinous drainage coming from the distal portion of her incision. Non-tender. Hip ROM is not painful. Ambulating well. Procedure for hematoma/seroma aspiration: using sterile technique I aspirated several inches posterior to her lower incision. I obtained about 8 cc of cloudy bloody serosanguinous fluid. Prevena incisional VAC placed over incision and aspiration site . Assessment and Plan: 1.) Post op check following a right total hip arthroplasty by Dr. Ramos with a Post operative seroma/hematoma - spoke to Dr. Ramos. I aspirated about 8 cc of bloody serosanguinous fluid from the lateral hip. Sent for cultures. I then placed a prevena incisional vac on her incision. This should be left on until I see her back in clinic next week. - XR independently reviewed showing an uncomplicated MARY. - continue xarelto as she has h/o PE - follow up with me next week - patient advised to follow up sooner if fevers pain, or if her canister gets to 150 cc she would need to get a new canister. Sagrario Jimenez PA-C 4:25 PM 02/19/2024 ICD-10-CM 1. Left hip pain M25.552 2. S/P total right hip arthroplasty Z96.641 XR Pelvis W Rt Lateral Hip Body Fluid Aerobic Culture Aerobic & Anaerobic Culture Panel Cell Count with Reflex to Differential, Body Fluid CANCELED: Complete Blood Count-No Diff CANCELED: C-Reactive Protein CANCELED: Cell Count with Reflex to Differential, Body Fluid documented in this encounter Plan of Treatment Upcoming Encounters Date Type Department Care Team (Late st Contact Info) Description 07/17/2024 10:40 AM THERAPY TECHNICIAN Appointment [facility] [address] Op[address] [facility]. [place], [place] [id number] Nikita Bergeron MD [address] [place] [address] Scheduled Orders Name Type Priority Associated Diagnoses Orde r Schedule Aerobic & Anaerobic Culture Panel Microbiology Routine S/P total right hip arthroplasty Expected: 02/19/2024, Expires: 05/19/2024 documented as of this encounter Goals Goal Patient Goal Type Associated Problems Recent Progress Patient-Stated? Author HIP REPLACEMENT - [facility] Care Plan ET PROE HIP REPLACEMENT - [facility] Erwin Rose documented as of this encounter Procedures Procedure Name Priority Date/Time Associated Diagnosis Comments CELL COUNT WITH REFLEX TO DIFFERENTIAL, BODY FLUID Routine 02/19/2024 3:45 PM CDT S/P total right hip arthroplasty BODY FLUID MANUAL DIFFERENTIAL Routine 02/19/2024 3:45 PM CDT S/P total right hip arthroplasty BODY FLUID AEROBIC CULTURE Routine 02/19/2024 3:45 PM CDT S/P total right hip arthroplasty BODY FLUID CELL COUNT Routine 02/19/2024 3:45 PM CDT S/P total right hip arthroplasty documented in this encounter Results * Body Fluid Manual Differential (02/19/2024 3:45 PM CDT) Neutrophil % 81 % 02/20/2024 12:15 AM CDT [facility] Lymphocyte % 2 % 02/20/2024 12:15 AM CDT [facility] Monocyte/Macrop maulik % 17 % 02/20/2024 12:15 AM CDT [facility] Synovial Fluid RIGHT HIP REGION STRUCTURE / Unknown 02/19/2024 3:45 PM CDT 02/19/2024 3:48 PM CDT Sagrario Jimenez PA-C LAB_1 Performing Organization Address [facility] de Phone Number [facility] [address] * (ABNORMAL) Body Fluid Cell Count (02/19/2024 3:45 PM CDT) Type Synovial Fluid 02/20/2024 12:15 AM CDT [facility] Source Hip, right 02/20/2024 12:15 AM CDT [facility] Appearance Bloody(A) Clear 02/20/2024 12:15 AM CDT [facility] Red Blood Cells 177,000 /uL 02/20/2024 12:15 AM CDT [facility] Comment:The reference interv al has not been established. The test result must be integrated into the clinical context for interpretation. Total Nucleated Cells 8,587 /uL 02/20/2024 12:15 AM CDT [facility] Comment:The reference interv al has not been established. The test result must be integrated into the clinical context for interpretation. Synovial Fluid RIGHT HIP REGION STRUCTURE / Unknown 02/19/2024 3:45 PM CDT 02/19/2024 3:48 PM CDT Sagrario Jimenez PA-C LAB_1 Performing Organization Address [facility] Co de Phone Number [facility] [address] [place] [address], [place] * Body Fluid Aerobic Culture (02/19/2024 3:45 PM CDT) Body Fluid Culture No growth after 3 days 02/23/2024 12:20 PM CDT [facility] Gram Smear Few PMN's Present 02/23/2024 12:20 PM CDT [facility] Gram Smear No Organisms Seen 02/23/2024 12:20 PM CDT [facility] Synovial Fluid RIGHT HIP REGION STRUCTURE / Unknown 02/19/2024 3:45 PM CDT 02/19/2024 3:48 PM CDT Sagrario Jimenez PA-C LAB_[address] [address], [facility] * XR Pelvis W Rt Lateral Hip [...] of complications. Sagrario Jimenez PA-C RAD GD documented in this encounter Visit Diagnoses Diagnosis Left hip pain Pain in joint, pelvic region and thigh S/P total right hip arthroplasty S/P total right hip arthroplasty documented in this encounter Additional Health Concerns Active Problems Noted Date Diagnosed Date ET PROE HIP REPLACEMENT - RIGHT - [facility] documented as of this encounter Care Teams Platform Builder Relationship Specialty Start Date End Date Needs [facility] [place] [address] PCP - General 03/14/23 documented as of this encounter
--- OUTSIDE RECORDS SUMMARY | 2024-05-20 15:52 | XMS_ITS | Encounter Summary ---
Author Organization [facility] Address [address] [place] [address] Care Team Providers Care Enterprise Application Developer Name Role Phone Needs Pcp, Assignment Primary Care Provider [phone]- [phone] Reason for Visit * Reason Comments Post-Op Check R MARYDOS: 02/08/24 Encounter Details Date Type Department Care Team (Late st Contact Info) Description 03/20/2024 10:00 AM CDT Office Visit [facility] Orthopaedics & Sports Medicine [address] [place] [address] [place] [address] [facility] [address] [place] [address] S/P total right hip arthroplasty (Primary Dx) [...] Sign Reading Time Taken Comments Blood Pressure - - Pulse - - Temperature - - Respiratory Rate - - Oxygen Saturation - - Inhaled Oxygen Concentration - - Weight 113.4 kg (250 lb) 03/20/2024 9:41 AM CDT Height 176.5 cm (5' 9.5) 03/20/2024 9:41 AM CDT Body Mass Index 36.39 03/20/2024 9:41 AM CDT documented in this encounter Patient Instructions * Patient Instructions* Agnes Littlejohn - 03/20/2024 10:00 AM CDT Thank you for choosing [facility] for your health care visit today. Abdulkadir Ramos MD Orthopedic Surgeon Lower Extremity [facility] Advanced Imaging Scheduling: To schedule advanced imaging including MRI's, CT Scans, Ultrasounds and Fluoroscopic guided injections at a [facility] location please call [phone]. Medication Requests: Prescriptions are not filled on weekends or on weekdays after 3:00 PM. For all medication refills: Request a refill using [employer] or contact your pharmacy. [facility] Workers' Compensation [address] [place], [place] [address] (Phone) Email: [email or web address] What is Know Your Cost? Know Your Cost is a service for patients and patient/members to call and receive personalized cost information and estimates across our care group. The phone number is (COST) Monday - Monday 8 AM to 5 PM Release of Information: Radiology/Imaging Health Information Management [address] [address] [place], [place] [address] (Phone) [phone] (Phone) [employer] documented in this encounter Progress Notes * Abdulkadir Ramos MD - 03/20/2024 10:00 AM CDT Progress Note 03/20/2024 Barbara Martinez Chief Complaint: hip pain HPI: The patient is now about 6 week(s) s/p left total hip arthroplasty via the SuperPATH approach and 2 weeks out from right hip wound I&D for fat necrosis and wound drainage Pain: mild Concerns: granuloma on right thumb Complications: wound drainage Exam: Side: right Incision: healing well without drainage Walking well Right thumb radial granuloma, no infection X-ray: Good alignment and fixation of the total hip arthroplasty Assessment: Approximately 6 weeks s/p SuperPATH total hip arthroplasty doing well, no growth in cultures from I&D, right thumb granuloma- cauterized with silver nitrate Plan: No restrictions with activity or position, follow up at 1 year brittney with x-rays at that time. Antibiotic prophylaxis discussed. The patient will not require prophylaxis. Abdulkadir Ramos MD 10:03 AM 03/20/2024 documented in this encounter Plan of Treatment Upcoming Encounters Date Type Department Care Team (Late st Contact Info) Description 07/17/2024 10:40 AM SCHOOL BUS MONITOR Appointment [facility] [address] Ophthalmology [address] [facility]. [place], [place] [address] Nikita Bergeron MD [address] [place] [address] documented as of this encounter Goals Goal Patient Goal Type Associated Problems Recent Progress Patient-Stated? Author HIP RE[facility] - [facility] Care Plan ET PROE HIP REPLACEMENT - [facility] Erwin Rose documented as of this encounter Visit Diagnoses Diagnosis S/P total right hip arthroplasty- Primary documented in this encounter Additional Health Concerns Active Problems Noted Date Diagnosed Date ET PROE HIP REPLACEMENT - [facility] documented as of this encounter Care Teams Enterprise Application Developer Relationship Specialty Start Date End Date Needs Pcp, Assignment [place], [place] [address] PCP - General 03/14/23 documented as of this encounter
--- OUTSIDE RECORDS SUMMARY | 2024-05-20 15:52 | XMS_ITS | Encounter Summary ---
Author Organization [facility] Address [address] [place] [address] Care Team Providers Care Scrap Sorter Name Role Phone Needs Pcp, Assignment Primary Care Provider [phone] [phone] Reason for Visit * Procedure/Equipment (Routine) - Incomplete Specialty Diagnoses / Procedures Referred By Contac t Referred To Contact Procedures Foreign Image(S) XR Hip Rt Provider, Foreign Images [address] [place] [address] Referral ID Status Reason Start Date Expiration Date V isits Requested Visits Authorized [id number] Incomplete 03/12/2024 06/11/2025 1 1 Encounter Details Date Type Department Care Team (Late st Contact Info) Description 03/01/2024 3:15 PM CDT Ancillary Procedure [facility] PACS [address] [place] [address] Provider, Foreign Images [address] [place] [address] Social History Tobacco Use Types Packs/Day Years [...] Contact Info) Description 07/17/2024 10:40 AM MANAGEMENT EXPERT Appointment [facility] [address] Ophthalmology [address] [facility] [place] [address] Nikita Bergerno MD [address] [place] [address] documented as of this encounter Goals Goal Patient Goal Type Associated Problems Recent Progress Patient-Stated? Author HIP REPLACEMENT - RIGHT - [facility] Care Plan ET PROE HIP REPLACEMENT - RIGHT - [facility] No Erwin Moran documented as of this encounter Procedures Procedure Name Priority Date/Time Associated Diagnosis Comments FOREIGN IMAGE(S) XR HIP RT Routine 03/01/2024 3:15 PM CDT documented in this encounter Results * Foreign Image(S) XR Hip Rt [...] documented as of this encounter Care Teams Scrap Sorter Relationship Specialty Start Date End Date Needs Pcp, [place] [address] PCP - General 03/14/23 documented as of this encounter
[2024-05-20] MEDS: ACETAMINOPHEN 500 MG TABLET 1000 MG PO (16:46)
== END 2024-05-20 17:15 | disposition home or self-care (01) ==
PROVIDERS: Student in an Organized Health Care Education/Training Program; Emergency Provider Family Medicine; PCP Student in an Organized Health Care Education/Training Program
DX: R07.89 Other chest pain (principal); V43.52XA Car driver injured in collision with other type car in traffic accident, initial encounter
CPT/HCPCS: 36415; 70450; 71260; 72125; 74177; 80053; 82565; 84484; 85025; 93005; 99283; 99285; 99291; A9270; G0390; Q9967